=== PATIENT | male | born 1970 | race Caucasian/White ===

== ENCOUNTER 2020-05-12 15:47 | Inpatient (IN) | payer MEDICAID, SELFPAY ==
[2020-05-12 15:49] VITALS: BP 157/96; PULSE 81; RESP 14; TEMP 36.3; O2SAT 98; BMI 27.7
[2020-05-12 16:13] VITALS: BP 151/100; PULSE 83; RESP 16; TEMP 36.5; O2SAT 100
--- NOTE | 2020-05-12 16:15 | ED.DCSUM_ITS ---
History of Present Illness Chief Complaint: Substance Abuse Informant: Patient Narrative: . Patient is a 50-year-old male with a history of GERD who presents to the emerge department for multiple complaints. His main concern was to detox from alcohol and fentanyl. He uses daily since this past July. He states he was 3 years sober until that point. He has gone through detox before in the past. He states that he drinks around 6-7 tall boys of beer per day. He uses about 1 g of fentanyl per day. He smokes it. The last time used was yesterday. He states he now just feels overall crummy. His second concern was an abscess to the right butt cheek. Was treated with antibiotics for an abscess that was in the left groin. He is no longer on the antibiotics and has not completely resolved. He denies any fevers or chills. Sitting on the area did seem to make it significantly worse with the pain. Otherwise has not tried anything for it. Has been present for the past 3 days. Denies any known history of MRSA. Past Medical History - Allergies and Home Meds Allergies/Adverse Reactions: Allergies No Known Allergies Allergy (Verified 05/12/20 15:47) Past Medical History: - - GERD Smoking Status: Current every day smoker Alcohol: Heavy Drugs: - - Fentanyl - Family History Maternal Family History: Reports: - - Denies known maternal medical history including cardiac history. Paternal Family History: Reports: - - Denies known paternal medical history including cardiac history. Review of Systems All systems negative except as indicated General: Denies: Chills, Fever, Sweats Eyes: Denies: Visual changes - bilaterally, Diplopia ENT: Denies: Rhinorrhea, Sore throat Cardiovascular: Denies: Chest pain, Palpitations Respiratory: Denies: Dyspnea, Cough, Dyspnea on exertion Gastrointestinal: Denies: Abdominal pain, Nausea, Vomiting, Diarrhea Genitourinary: Denies: Dysuria, Hematuria, Frequency Musculoskeletal: Denies: Back pain, Extremity Pain Skin: Reports: Abscess. Denies: Rash, Wounds Neurological: Denies: Headache, Weakness, Numbness Physical Exam Vital Signs/Narrative: Vital Signs Temp Pulse Resp BP Pulse Ox 05/12/20 15:49 97.3 F L 81 14 157/96 H 98 Inital Vital Signs reviewed: Yes General: Well nourished, Well developed, No Acute Distress Head: Normocephalic, Atraumatic Eyes: Perrl, EOMI ENT: Moist mucous membranes, No rhinorrhea Neck: Supple, Nontender Cardiovascular: Regular rate, Regular rhythm, No murmurs Respiratory: No distress, CTA bilaterally, Chest nontender Abdomen: Soft, Nontender, Nondistended, Normal bowel sounds Back: Nontender, Normal Inspection Extremities: Nontender, No edema Skin: Normal color, No rash, - - Abscess to right lower butt cheek. No rectal involvement. Large area of induration, erythema, tenderness and warmth. There is an area of opening and there is some bloody/purulent fluid present. Neurological: Alert, Oriented x3, Cranial nerves II-XII grossly intact, Normal Strength, Normal Sensation Psychological: Normal affect, Normal Mood Diagnostic/Tx/Re-eval - Medical Decision Making Patient presents to the ED to detox from alcohol and fentanyl. Upon arrival to the emergency department vital signs within normal limits. Does not appear in any acute distress. He also complaining of an abscess to right butt cheek. Bedside ultrasound of the inflamed area did not show any large fluid collection. This is all indurated tissue. No indication for I&D. Will place him on Bactrim and Keflex. Patient's alcohol level is negative. He did test positive for cocaine and opioids. He otherwise has been stable throughout ED stay. Will bring him into the hospital for further evaluation and management. He understands and is agreeable with this plan. ED Disposition - Plan for ED Patient: Disposition: Acute Care [facility] Diagnosis: Alcohol use disorder, Opioid abuse, Abscess of buttock, right, Polysubstance abuse
[2020-05-12 16:44] LABS: Absolute Lymphocyte Count 2.04 X10^3/uL (0.83-4.51); Absolute Neutrophil Count 8.2 X10^3/uL (2.0-7.7); Basophil# 0.07 X10^3/uL; Basophil% 0.6 % (0-1); Eosinophil# 0.14 X10^3/uL; Eosinophils% 1.2 % (0-5); Hematocrit 43.9 % (40-54); Hemoglobin 14.6 g/dL (13.0-16.5); Lymphocyte # 2.04 X10^3/ul (4.0); Lymphocyte % 17.5 % (19-41); Mean Corp Hgb Conc 33.3 g/dL (32-36); Mean Corpuscular Hgb 29.4 pg (27.0-32.0); Mean Corpuscular Volume 88.5 fL (80-94); Mean Platelet Vol. 9.4 fl (6.2-12.0); Monocyte# 1.19 X10^3/uL; Monocyte% 10.2 % (0-10); NRBC Flagged by Analyzer 0 % (0-5); Neutrophil # 8.16 X10^3/uL (2.7-7.7); Neutrophil % 70.2 % (47-70); Platelet Count 216 K/mm3 (150-450); RBC Distribution Width CV 14.8 % (11.6-14.6); RBC Distribution Width SD 48.8 fl (35.1-43.9); Red Blood Count 4.96 M/mm3 (4.6-6.2); White Blood Count 11.6 K/mm3 (4.4-11.0)
[2020-05-12 17:10] LABS: ALB/GLOB Ratio 0.8 RATIO (0.9-2.4); AST(SGOT) 44 U/L (15-37); Alanine Aminotransfer ALT/SGPT 51 U/L (16-61); Albumin, Serum 3.1 g/dL (3.2-5.0); Alkaline Phosphatase 80 U/L (45-117); Anion Gap 3 (5-15); BUN 8 mg/dL (7-18); BUN/Creat Ratio 8.8 RATIO (10-20); Calcium,Total 8.5 mg/dL (8.5-10.1); Chloride 104 mmol/L (98-107); Creatinine, Serum 0.91 mg/dL (0.70-1.30); EST Glomerular Filtration Rate 95 mL/min (>60); Est Glom Filt Rate - Afr Amer 114 mL/min (>60); Estimated Creatinine Clearance 105.73 ml/min; Globulin 3.8 g/dL (2.2-4.2); Glucose 98 mg/dL (74-106); Potassium 3.6 mmol/L (3.5-5.1); Protein, Total 6.9 g/dL (6.4-8.2); Sodium Level 138 mmol/L (136-145)
[2020-05-12] MEDS: Cephalexin 250 MG Capsule 500 MG PO (17:10)
[2020-05-12] MEDS: Smz/Tmp Ds Tablet 1 TABLET PO (17:10)
[2020-05-12 17:22] LABS: Amphetamine Urine VISTA NEGATIVE (<1000 ng/mL); Barbiturate Urine VISTA NEGATIVE (< 200 ng/mL); Benzodiazepine Urine VISTA NEGATIVE (< 200 ng/mL); Cocaine Urine VISTA POSITIVE (< 300 ng/mL); Ecstacy Urine VISTA NEGATIVE (< 500 ng/mL); Methadone Urine VISTA NEGATIVE (< 300 ng/mL); PCP Urine VISTA NEGATIVE (< 25 ng/mL); THC Urine VISTA NEGATIVE (< 50 ng/mL); Vista UDS pH Range 6
[2020-05-12 17:54] VITALS: BMI 27.7
[2020-05-12 18:40] VITALS: BP 145/92; PULSE 79; RESP 16; TEMP 36.6; O2SAT 98; O2SAT 99
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
[2020-05-12 18:54] LABS: Alcohol, Blood (Medical)-Serum < 3.0 mg/dL
[2020-05-12 19:17] VITALS: BMI 27.1
[2020-05-12 19:18] VITALS: BP 138/83; PULSE 78; RESP 16; TEMP 37; O2SAT 98
[2020-05-12] MEDS: Phenobarbital 32.4 MG Tablet 97.2 MG PO (20:57)
[2020-05-12] MEDS: LORazepam 1 MG Tablet 2 MG PO (21:00)
[2020-05-12] MEDS: Doxycycline 100 MG CAPSULE PO (21:01)
[2020-05-12 21:05] VITALS: BP 133/73; PULSE 84; RESP 18; TEMP 37.2; O2SAT 97
--- NOTE | 2020-05-12 22:10 | NURSING ---
Patient refused to take first scheduled dose of Subutex due to fear of precipitated withdrawal. Stated wants to wait until 05/12 0430 dose to start.
[2020-05-13] MEDS: Phenobarbital 32.4 MG Tablet 97.2 MG PO ×5 (00:12→16:48)
[2020-05-13] MEDS: Buprenorphine HCl 2 MG TAB.SUBL 4 MG SL (04:26)
[2020-05-13 04:27] VITALS: BP 143/88; PULSE 79; RESP 18; TEMP 37.4; O2SAT 97
[2020-05-13] MEDS: cloNIDine HCl 0.1 MG Tablet PO ×2 (05:46→13:49)
--- NOTE | 2020-05-13 07:15 | PN_ITS ---
Patient Problems: Active and Suspected Problems Abscess of buttock, right (Acute) Polysubstance abuse (Acute) Reason for Visit: Acute opioid withdrawal Right gluteal abscess Subjective: Patient is a 50-year-old gentleman with history of polysubstance abuse including alcohol and opioid admitted after patient came in requesting for detoxification. He also did complain of right gluteal abscess which has been treated as outpatient without much improvement Objective: GENERAL: Patient not cooperative HEENT: Atraumatic; EYES; Anicteric, Normal Conjunctiva NECK; supple, normal thyroid, RESPIRATORY: Diminished to auscultation CARDIOVASCULAR: Regular S1 S2, GI: soft, normoactive bowel sounds, : No Renal angle tenderness; EXTREMITIES: No edema, no clubbing, MUSCULOSKELETAL: Area of induration and erythema and warmth measuring about 7 cm in the right gluteal fold NEURO: Awake; no lateralizing signs. SKIN: Described above PSYCH; Flat affect Vitals/I&O's: Vital Signs Temp Pulse Resp BP Pulse Ox 99.4 F H 79 18 143/88 H 97 05/13/20 04:27 05/13/20 04:27 05/13/20 04:27 05/13/20 04:27 05/13/20 04:27 Oxygen Delivery Method Room Air Weight: 88.451 kg Body Mass Index (BMI) 27.1 Intake and Output for Last 24 Hours 05/11/20 05/12/20 05/13/20 23:59 23:59 23:59 Intake Total 240 / 240 500 / 500 Output Total 700 / 700 900 / 900 Balance -460 / -460 -400 / -400 Laboratory Results 05/12/20 16:30: WBC 11.6 H, RBC 4.96, Hgb 14.6, Hct 43.9, MCV 88.5, MCH 29.4, MCHC 33.3, RDW Std Deviation 48.8 H, RDW Coeff of Mayte 14.8 H, Plt Count 216, MPV 9.4, Immature Gran % (Auto) 0.300, Neut % (Auto) 70.2 H, Lymph % (Auto) 17.5 L, [place] % (Auto) 10.2 H, Eos % (Auto) 1.2, Baso % (Auto) 0.6, Absolute Neuts (auto) 8.2 H, Absolute Lymphs (auto) 2.04, Nucleated RBC % 0 05/12/20 16:30: Sodium 138, Potassium 3.6, Chloride 104, Carbon Dioxide 31.0, Anion Gap 3 L, BUN 8, Creatinine 0.91, Estim Creat Clear Calc 105.73, Est GFR (MDRD) Af Amer 114, Est GFR (MDRD) Non-Af 95, BUN/Creatinine Ratio 8.8 L, Glucose 98, Calcium 8.5, Total Bilirubin 1.30 H, AST 44 H, ALT 51, Alkaline Phosphatase 80, Total Protein 6.9, Albumin 3.1 L, Globulin 3.8, Albumin/Globulin Ratio 0.8 L 05/12/20 16:30: Ethyl Alcohol < 3.0 05/12/20 16:40: Urine Opiates Screen POSITIVE H, Urine Methadone Screen NEGATIVE, Ur Barbiturates Screen NEGATIVE, Ur Phencyclidine Scrn NEGATIVE, Ur Amphetamines Screen NEGATIVE, U Methamphetamin-MDMA NEGATIVE, U Benzodiazepines Scrn NEGATIVE, Urine Cocaine Screen POSITIVE H, U Cannabinoids Screen NEGATIVE, Ur Drug Screen Comment Current Medications Acetaminophen (Tylenol) 500 mg PO Q4H PRN PRN PRN Reason: Temp > 100.4 F Buprenorphine HCl (Buprenorphine Hcl) 4 mg SL Q8H [facility]; Taper Stop: 05/15/20 20:29 Last Admin: 05/13/20 04:26 Dose: 4 mg Documented by: Clonidine (Catapres) 0.1 mg PO Q8H PRN PRN PRN Reason: RESTLESSNESS Last Admin: 05/13/20 05:46 Dose: 0.1 mg Documented by: Doxycycline Monohydrate (Doxycycline) 100 mg PO BID [facility] Last Admin: 05/12/20 21:01 Dose: 100 mg Documented by: Folic Acid (Folic Acid) 1 mg PO DAILY@0800 [facility] Ibuprofen (Motrin) 600 mg PO Q8H PRN PRN PRN Reason: Pain Score 1-10/10 Lorazepam (Ativan) 2 mg PO Q2H PRN PRN; Protocol PRN Reason: CIWA score > 8 but <15 Last Admin: 05/12/20 21:00 Dose: 2 mg Documented by: Lorazepam (Ativan) 2 mg PO UD PRN; Protocol PRN Reason: CIWA score >/=15. Lorazepam (Ativan) 2 mg IV Q2H PRN PRN; Protocol PRN Reason: CIWA score > 8 but <15 Lorazepam (Ativan) 2 mg IV UD PRN; Protocol PRN Reason: CIWA score >/=15. Nicotine (Nicoderm Cq (Pbkc)) 14 mg TRANSDERM. DAILY [facility] Nutritional Formula (Lactose Free) (Ensure Enlive) 120 ml PO 4X/DAY [facility] Ondansetron HCl (Zofran) 8 mg PO Q8H PRN PRN PRN Reason: NAUSEA Pantoprazole Sodium (Protonix) 40 mg PO DAILY [facility] Phenobarbital (Phenobarbital) 97.2 mg PO Q4H [facility]; Taper Stop: 05/17/20 04:29 Last Admin: 05/13/20 04:27 Dose: 97.2 mg Documented by: Sodium Chloride () 10 - 40 ml IV UD PRN PRN Reason: SALINE FLUSH Thiamine HCl (Vitamin B1) 100 mg PO DAILYCM [facility] STROKE Vital Signs/Narrative: Vital Signs Temp Pulse Resp BP Pulse Ox 05/13/20 04:27 99.4 F H 79 18 143/88 H 97 Medical Necessity - Tobacco Use Smoking Status: Current every day smoker Tobacco Use: Cigarettes Assessment/Plan All Active Problems Abscess of buttock, right (Acute) Polysubstance abuse (Acute) Patient is a 50-year-old gentleman with history of polysubstance abuse including alcohol and opioid admitted after patient came in requesting for detoxification. He also did complain of right gluteal abscess which has been treated as outpatient without much improvement 1. Acute opioid withdrawal Admitted to regular nursing floor being managed with medical stabilization using Buprenorphine 2. Polysubstance abuse Clean opioid and alcohol counseled on cessation 3. Tobacco dependence - Counseled on cessation, offered nicotine patch for tobacco cravings 4. Right gluteal abscess ?Patient was placed on oral doxycycline however given the extent of induration consult was placed to general surgery for consideration for I&D 5. DVT prophylaxis ?Low risk Inpatient E&M: [id number] [facility] L[facility]
[2020-05-13] MEDS: Folic Acid 1 MG Tablet PO (08:07)
[2020-05-13] MEDS: Pantoprazole Sodium 40 MG Tablet PO (08:07)
[2020-05-13] MEDS: Thiamine Hydrochloride 100 MG Tablet PO (08:07)
[2020-05-13] MEDS: Doxycycline 100 MG CAPSULE PO (08:13)
[2020-05-13] MEDS: LORazepam 1 MG Tablet 2 MG PO ×3 (08:14→16:48)
--- NOTE | 2020-05-13 10:15 | ADDICTION ---
This advertising copy writer attempted to meet with patient in his room to conduct ASAM, MSE, and AUDIT assessments. Patient declined meeting with this advertising copy writer and requested to be seen tomorrow. This advertising copy writer will update 24 hour Navigator staff that he will need to be seen.
[2020-05-13 10:27] VITALS: BP 140/88; PULSE 80; RESP 18; TEMP 36.6; O2SAT 97
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
--- NOTE | 2020-05-14 07:32 | PCM.DC.SUM ---
Discharge Date and Diagnosis Date of Admission: 05/12/20 Date of Discharge: 05/13/20 - Primary Discharge Diagnosis Acute Problems: Acute opioid withdrawal Right gluteal abscess - Secondary Discharge Diagnosis Chronic Problems: Chronic Problems Alcohol use disorder (Chronic) Opioid abuse (Chronic) Hospital Course and Treatment Summary of Care Provided: Patient is a 50-year-old gentleman with history of polysubstance abuse including alcohol and opioid admitted after patient came in requesting for detoxification. He also did complain of right gluteal abscess which has been treated as outpatient without much improvement 1. Acute opioid withdrawal Admitted to regular nursing floor being managed with medical stabilization using Buprenorphine -Patient signed out AGAINST MEDICAL ADVICE 2. Polysubstance abuse Clean opioid and alcohol counseled on cessation 3. Tobacco dependence - Counseled on cessation, offered nicotine patch for tobacco cravings 4. Right gluteal abscess ?Patient was placed on oral doxycycline however given the extent of induration consult was placed to general surgery for consideration for I&D -Consult was placed to Dr. Simon with general surgery plan was for patient to have undergone I&D on 05/14/2020 5. DVT prophylaxis ?Low risk - Physical Exam Vitals/I&O's: Vital Signs Temp Pulse Resp BP Pulse Ox 97.9 F 80 18 140/88 H 97 05/13/20 10:27 05/13/20 10:27 05/13/20 10:27 05/13/20 10:27 05/13/20 10:27 Oxygen Delivery Method Room Air Weight: 88.451 kg Body Mass Index (BMI) 27.1 Intake and Output for Last 24 Hours 05/12/20 05/13/20 05/14/20 23:59 23:59 23:59 Intake Total 240 / 240 500 / 500 Output Total 700 / 700 900 / 900 Balance -460 / -460 -400 / -400 Home Medications: Medications to take at Discharge Ergocalciferol [Vitamin D] 50,000 unit PO WE 05/12/20 Pantoprazole Sodium [Protonix] 40 mg PO DAILY 05/12/20 Primary Care Physician: Mary Lou Shepard,Out of [NON-STAFF] - Disposition: Against Medical Advice Minutes spent on discharge:: 35 Patient Condition:: Stable Medical Necessity - Tobacco Use Smoking Status: Current every day smoker Tobacco Use: Cigarettes Meaningful Use Info Meaningful Use Diagnoses (Choose all that apply): None applicable Inpatient E&M: 94771 [facility]
== END 2020-05-13 18:39 | disposition left against medical advice (07) | DRG 770 ==
LOC: ED 16:51 → MS3 19:06
PROVIDERS: Surgery; Admitting Provider Internal Medicine; Emergency Provider Emergency Medicine; Visit Provider Internal Medicine
DX: F11.23 Opioid dependence with withdrawal (principal); F10.139 Alcohol abuse with withdrawal, unspecified; Y90.0 Blood alcohol level of less than 20 mg/100 ml; L02.31 Cutaneous abscess of buttock; L03.317 Cellulitis of buttock; F14.10 Cocaine abuse, uncomplicated; F17.210 Nicotine dependence, cigarettes, uncomplicated; Z53.29 Procedure and treatment not carried out because of patient's decision for other reasons
CPT/HCPCS: 80053; 80307; 80320; 85025; 97802; 99284; A4216; G0480

== ENCOUNTER 2020-06-18 17:03 | Inpatient (IN) | payer MEDICAID, SELFPAY ==
[2020-06-18 17:06] VITALS: BP 158/99; PULSE 91; RESP 18; TEMP 36.6; O2SAT 99; BMI 27.8
--- NOTE | 2020-06-18 17:32 | ED.DCSUM_ITS ---
- ER Visit Summary Date of Service: 06/18/20 Chief Complaint: Fentanyl withdrawal History of Present Illness: The patient is a 50 M presenting with fentanyl withdrawal requesting detox. He states he drinks approximately 6 beers per day and uses approximately 1 g of fentanyl per day. He smokes fentanyl. He also uses cocaine. He states his last detox was over 1 month ago. He left AGAINST MEDICAL ADVICE at that time. He states he does not intend to leave AGAINST MEDICAL ADVICE this time. His last use of fentanyl and alcohol was yesterday. He complains of abdominal cramping and nausea. Complains of myalgias and chills. Denies fever or recent exposure to Covid. Physical Examination: Vitals are stable. Patient is afebrile. Alert no acute distress. HEENT exam is unremarkable. Neck is supple. Lungs are clear and equal bilaterally. Heart is regular rate and rhythm. Abdomen is soft nontender nondistended. Extremities are unremarkable. Skin is warm and dry. No focal neurologic deficit. Remainder of exam is unremarkable. Emergency Department Course and Treatment: Chemistries showed potassium 3.4. Alcohol negative. Tox positive for methamphetamine and cocaine. He was given Zofran p.o. Discussed with hospitalist for admission. Disposition: Admission Impression: Fentanyl withdrawal This note was generated with [employer] dictation software. It may contain incorrect words, spelling, and punctuation that were not noted in review of the chart prior to signing ED Disposition - Plan for ED Patient: Referrals: SHELDON WESTBROOK [Other]
[2020-06-18] MEDS: Ondansetron 8 MG Tablet PO (17:33)
[2020-06-18 18:18] LABS: Amphetamine Urine VISTA NEGATIVE (<1000 ng/mL); Barbiturate Urine VISTA NEGATIVE (< 200 ng/mL); Benzodiazepine Urine VISTA NEGATIVE (< 200 ng/mL); Cocaine Urine VISTA POSITIVE (< 300 ng/mL); Ecstacy Urine VISTA POSITIVE (< 500 ng/mL); Methadone Urine VISTA NEGATIVE (< 300 ng/mL); PCP Urine VISTA NEGATIVE (< 25 ng/mL); THC Urine VISTA NEGATIVE (< 50 ng/mL); Vista UDS pH Range 6
[2020-06-18 18:20] LABS: Alcohol, Blood (Medical)-Serum < 3.0 mg/dL
[2020-06-18 18:25] LABS: AST(SGOT) 13 U/L (15-37); Alanine Aminotransfer ALT/SGPT 21 U/L (16-61); Albumin, Serum 2.9 g/dL (3.2-5.0); Alkaline Phosphatase 62 U/L (45-117); Anion Gap 4 (5-15); BUN 7 mg/dL (7-18); BUN/Creat Ratio 6.5 RATIO (10-20); Calcium,Total 8.2 mg/dL (8.5-10.1); Chloride 108 mmol/L (98-107); Creatinine, Serum 1.08 mg/dL (0.70-1.30); EST Glomerular Filtration Rate 78 mL/min (>60); Est Glom Filt Rate - Afr Amer 94 mL/min (>60); Estimated Creatinine Clearance 89.09 ml/min; Globulin 2.9 g/dL (2.2-4.2); Glucose 97 mg/dL (74-106); Potassium 3.4 mmol/L (3.5-5.1); Protein, Total 5.8 g/dL (6.4-8.2); Sodium Level 141 mmol/L (136-145)
--- NOTE | 2020-06-18 18:44 | CM.ED ---
Social Work Consult: Substance Abuse Informant: Self Referral Met with patient in room. Introduced self and social services role. Patient agreeable to speak with this social services. Patient with history of [facility] admission in the past and familiar with program. Patient reports to be seeking medical management for withdrawal symptoms. Patient reports Fentanyl and Alcohol as substance of choice. Patient reports Fentanyl is the worst to detox from. Patient tearful at times during conversation. Support and active listening provided. Patient verbally agrees to [facility] contract. Telephone call to [facility], no answer. voicemail left Dalia SARKAR, JOSH
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
[2020-06-18 19:13] VITALS: BP 157/98; PULSE 73; RESP 18; TEMP 36.7; O2SAT 98
[2020-06-18 19:47] VITALS: BMI 27.2
[2020-06-18 19:50] VITALS: BMI 27.3
[2020-06-18 19:54] VITALS: BP 157/93; PULSE 75; RESP 16; TEMP 36.7; O2SAT 99
[2020-06-18] MEDS: Folic Acid 1 MG Tablet PO (20:27)
[2020-06-18] MEDS: Thiamine Hydrochloride 100 MG Tablet PO (20:28)
[2020-06-18] MEDS: cloNIDine HCl 0.1 MG Tablet PO (22:13)
[2020-06-18] MEDS: Buprenorphine HCl 2 MG TAB.SUBL SL (22:13)
[2020-06-18] MEDS: traZODone 100 MG Tablet PO (22:13)
[2020-06-18] MEDS: Methocarbamol 750 MG Tablet 1500 MG PO (23:54)
[2020-06-18] MEDS: Dicyclomine 10 MG Capsule 20 MG PO (23:54)
[2020-06-18] MEDS: Gabapentin 300 MG Capsule PO (23:54)
[2020-06-19] MEDS: Ibuprofen 600 MG Tablet PO ×2 (00:42→12:50)
[2020-06-19 03:05] VITALS: BP 159/90; PULSE 83; RESP 20; TEMP 37.2; O2SAT 96
[2020-06-19 08:00] VITALS: PULSE 79; O2SAT 99
[2020-06-19 08:20] LABS: Absolute Lymphocyte Count 1.55 X10^3/uL (0.83-4.51); Absolute Neutrophil Count 8.2 X10^3/uL (2.0-7.7); Basophil# 0.05 X10^3/uL; Basophil% 0.5 % (0-1); Eosinophil# 0.07 X10^3/uL; Eosinophils% 0.7 % (0-5); Lymphocyte # 1.55 X10^3/ul (4.0); Lymphocyte % 14.6 % (19-41); Mean Corp Hgb Conc 34.8 g/dL (32-36); Mean Corpuscular Hgb 30.5 pg (27.0-32.0); Mean Corpuscular Volume 87.8 fL (80-94); Mean Platelet Vol. 8.9 fl (6.2-12.0); Monocyte# 0.73 X10^3/uL; Monocyte% 6.9 % (0-10); NRBC Flagged by Analyzer 0 % (0-5); Neutrophil # 8.16 X10^3/uL (2.7-7.7); Platelet Count 230 K/mm3 (150-450); RBC Distribution Width CV 12.9 % (11.6-14.6); RBC Distribution Width SD 41.2 fl (35.1-43.9); Red Blood Count 5.24 M/mm3 (4.6-6.2); White Blood Count 10.6 K/mm3 (4.4-11.0)
[2020-06-19 08:40] LABS: AST(SGOT) 12 U/L (15-37); Alanine Aminotransfer ALT/SGPT 23 U/L (16-61); Alkaline Phosphatase 45 U/L (45-117); Anion Gap 7 (5-15); BUN 5 mg/dL (7-18); BUN/Creat Ratio 5.7 RATIO (10-20); Calcium,Total 8.2 mg/dL (8.5-10.1); Chloride 105 mmol/L (98-107); Creatinine, Serum 0.88 mg/dL (0.70-1.30); EST Glomerular Filtration Rate 98 mL/min (>60); Est Glom Filt Rate - Afr Amer 119 mL/min (>60); Estimated Creatinine Clearance 109.34 ml/min; Glucose 121 mg/dL (74-106); Potassium 3.5 mmol/L (3.5-5.1); Sodium Level 138 mmol/L (136-145)
[2020-06-19 09:09] VITALS: BP 138/87; PULSE 79; RESP 20; TEMP 36.6; O2SAT 99
[2020-06-19] MEDS: Thiamine Hydrochloride 100 MG Tablet PO (09:15)
[2020-06-19] MEDS: Folic Acid 1 MG Tablet PO (09:15)
[2020-06-19] MEDS: Pantoprazole Sodium 40 MG Tablet PO (09:15)
--- NOTE | 2020-06-19 10:32 | PN_ITS ---
<Bret Sullivan - Last Filed: 06/19/20 10:32> Patient Problems: Active and Suspected Problems Opiate withdrawal (Acute) Reason for Visit: opiate withdrawal Subjective: Pt c/o headache and back pain. He is very restless and agitated. He is insistent that he use his cell phone however he is unable to do so due to his agreement for the detox program and he is very upset about this. He has also refused subutex. Vitals/I&O's: Vital Signs Temp Pulse Resp BP Pulse Ox 98 F 79 20 H 138/87 H 99 06/19/20 09:09 06/19/20 09:09 06/19/20 09:09 06/19/20 09:09 06/19/20 09:09 Oxygen Delivery Method Room Air Weight: 195 lb 8.8 oz Body Mass Index (BMI) 27.2 Intake and Output for Last 24 Hours 06/17/20 06/18/20 06/19/20 23:59 23:59 23:59 Intake Total 400 / 400 800 / 800 Balance 400 / 400 800 / 800 General: Alert, Oriented x3, Cooperative HEENT: Atraumatic, PERRLA, EOMI, Normocephalic Neck: Supple, No JVD, Negative Carotid Bruits Lungs: Clear to auscultation, Normal air movement Cardiovascular: Regular rate, No murmurs Abdomen: Bowel Sounds Present, Soft, Non Tender Extremities: No edema, Capillary Refill Less than 3 Seconds Skin: No rashes, No breakdown Musculoskeletal: No Tenderness to Palpation of Joints or Extremities Neurological: Cranial nerves II-XII grossly intact Psych/Mental Status: Agitated, Alert and oriented to time, place, person, mood and affect Laboratory Results 06/18/20 17:18: Urine Opiates Screen NEGATIVE, Urine Methadone Screen NEGATIVE, Ur Barbiturates Screen NEGATIVE, Ur Phencyclidine Scrn NEGATIVE, Ur Amphetamines Screen NEGATIVE, U Methamphetamin-MDMA POSITIVE H, U Benzodiazepines Scrn NEGATIVE, Urine Cocaine Screen POSITIVE H, U Cannabinoids Screen NEGATIVE, Ur D rug Screen Comment 06/18/20 17:45: Sodium 141, Potassium 3.4 L, Chloride 108 H, Carbon Dioxide 29.0, Anion Gap 4 L, BUN 7, Creatinine 1.08, Estim Creat Clear Calc 89.09, Est GFR (MDRD) Af Amer 94, Est GFR (MDRD) Non-Af 78, BUN/Creatinine Ratio 6.5 L, Glucose 97, Calcium 8.2 L, Total Bilirubin 0.50, AST 13 L, ALT 21, Alkaline Phosphatase 62, Total Protein 5.8 L, Albumin 2.9 L, Globulin 2.9, Albumin/Globulin Ratio 1.0 06/18/20 17:45: Ethyl Alcohol < 3.0 06/19/20 08:10: WBC 10.6, RBC 5.24, Hgb 16.0, Hct 46.0, MCV 87.8, MCH 30.5, MCHC 34.8, RDW Std Deviation 41.2, RDW Coeff of Mayte 12.9, Plt Count 230, MPV 8.9, Immature Gran % (Auto) 0.300, Neut % (Auto) 77.0 H, Lymph % (Auto) 14.6 L, [place] % (Auto) 6.9, Eos % (Auto) 0.7, Baso % (Auto) 0.5, Absolute Neuts (auto) 8.2 H, Absolute Lymphs (auto) 1.55, Nucleated RBC % 0 06/19/20 08:10: Sodium 138, Potassium 3.5, Chloride 105, Carbon Dioxide 26.0, Anion Gap 7, BUN 5 L, Creatinine 0.88, Estim Creat Clear Calc 109.34, Est GFR (MDRD) Af Amer 119, Est GFR (MDRD) Non-Af 98, BUN/Creatinine Ratio 5.7 L, Glucose 121 H, Calcium 8.2 L, Total Bilirubin 1.00, AST 12 L, ALT 23, Alkaline Phosphatase 45, Total Protein 6.0 L, Albumin 3.0 L, Globulin 3.0, Albumin/Globulin Ratio 1.0 Current Medications Acetaminophen (Acetaminophen 500 Mg Tablet) 500 mg PO Q4H PRN PRN PRN Reason: Temp > 100.4 F Buprenorphine HCl (Buprenorphine Hcl 2 Mg Tab.Subl) 4 mg SL Q8H CLAY; Taper Stop: 06/21/20 19:59 Last Admin: 06/19/20 04:41 Dose: Not Given Documented by: Clonidine (Clonidine Hcl 0.1 Mg Tablet) 0.1 mg PO Q8H PRN PRN PRN Reason: RESTLESSNESS Last Admin: 06/18/20 22:13 Dose: 0.1 mg Documented by: Dicyclomine HCl (Dicyclomine 10 Mg Capsule) 20 mg PO Q6H PRN PRN PRN Reason: Abdominal Discomfort Last Admin: 06/18/20 23:54 Dose: 20 mg Documented by: Folic Acid (Folic Acid 1 Mg Tablet) 1 mg PO DAILY@0800 [facility] Last Admin: 06/19/20 09:15 Dose: 1 mg Documented by: Gabapentin (Gabapentin 300 Mg Capsule) 300 mg PO Q8H PRN PRN PRN Reason: moderate to severe anxiety Last Admin: 06/18/20 23:54 Dose: 300 mg Documented by: Hydroxyzine Pamoate (Hydroxyzine Andreia 25 Mg Capsule) 50 mg PO Q6H PRN PRN PRN Reason: mild anxiety Ibuprofen (Ibuprofen 600 Mg Tablet) 600 mg PO Q8H PRN PRN PRN Reason: Pain Score 1-10 Last Admin: 06/19/20 00:42 Dose: 600 mg Documented by: Loperamide HCl (Loperamide 2 Mg Capsule) 2 mg PO Q4H PRN PRN PRN Reason: LOOSE STOOLS Methocarbamol (Methocarbamol 750 Mg Tablet) 1,500 mg PO Q6H PRN PRN PRN Reason: MUSCLE SPASM Last Admin: 06/18/20 23:54 Dose: 1,500 mg Documented by: Nicotine (Nicotine 21 Mg Patch) 21 mg TRANSDERM. DAILY [facility] Last Admin: 06/19/20 09:15 Dose: Not Given Documented by: Ondansetron HCl (Ondansetron 8 Mg Tablet) 8 mg PO Q8H PRN PRN PRN Reason: NAUSEA Pantoprazole Sodium (Pantoprazole Sodium 40 Mg Tablet) 40 mg PO DAILY [facility] Last Admin: 06/19/20 09:15 Dose: 40 mg Documented by: Thiamine HCl ([facility] Hydrochloride 100 Mg Tablet) [facility] Last Admin: 06/19/20 09:15 Dose: 100 mg Documented by: Trazodone HCl (Trazodone 100 Mg Tablet) 100 mg PO QHS PRN PRN PRN Reason: INSOMNIA Last Admin: 06/18/20 22:13 Dose: 100 mg Documented by: STROKE Vital Signs/Narrative: Vital Signs Temp Pulse Resp BP Pulse Ox 06/19/20 09:09 98 F 79 20 H 138/87 H 99 06/19/20 08:00 79 99 Medical Necessity - Tobacco Use Smoking Status: Current every day smoker Assessment/Plan All Active Problems Opiate withdrawal (Acute) 1. Acute opiate withdrawal - pt very agitated and refused subutex. He is also upset about not being able to use his phone. He left AMA last admission and he is at high risk for elopement again. 2. Alcohol use disorder - unclear if he has alcohol withdrawal - continue thiamine and folate. As he is refusing to go use subutex for opiate withdrawal I do not feel that it would be beneficial to start phenobarb at this time for alcohol withdrawal as he clearly has opiate withdrawal. DVT ppx: early ambulation DC plannin at discharge This patient was seen by Bret Sullivan PA-C under the supervision of Dr. Soto. <[place] - Last Filed: 06/19/20 12:19> Vitals/I&O's: Vital Signs Temp Pulse Resp BP Pulse Ox 98 F 79 20 H 138/87 H 99 06/19/20 09:09 06/19/20 09:09 06/19/20 09:09 06/19/20 09:09 06/19/20 09:09 Oxygen Delivery Method Room Air Weight: 88.7 kg Body Mass Index (BMI) 27.2 Intake and Output for Last 24 Hours 06/17/20 06/18/20 06/19/20 23:59 23:59 23:59 Intake Total 400 / 400 800 / 800 Balance 400 / 400 800 / 800 Laboratory Results 06/18/20 17:18: Urine Opiates Screen NEGATIVE, Urine Methadone Screen NEGATIVE, Ur Barbiturates Screen NEGATIVE, Ur Phencyclidine Scrn NEGATIVE, Ur Amphetamines Screen NEGATIVE, U Methamphetamin-MDMA POSITIVE H, U Benzodiazepines Scrn NEGATIVE, Urine Cocaine Screen POSITIVE H, U Cannabinoids Screen NEGATIVE, Ur Drug Screen Comment 06/18/20 17:45: Sodium 141, Potassium 3.4 L, Chloride 108 H, Carbon Dioxide 29.0, Anion Gap 4 L, BUN 7, Creatinine 1.08, Estim Creat Clear Calc 89.09, Est GFR (MDRD) Af Amer 94, Est GFR (MDRD) Non-Af 78, BUN/Creatinine Ratio 6.5 L, Glucose 97, Calcium 8.2 L, Total Bilirubin 0.50, AST 13 L, ALT 21, Alkaline Phosphatase 62, Total Protein 5.8 L, Albumin 2.9 L, Globulin 2.9, Albumin/Globulin Ratio 1.0 06/18/20 17:45: Ethyl Alcohol < 3.0 06/19/20 08:10: WBC 10.6, RBC 5.24, Hgb 16.0, Hct 46.0, MCV 87.8, MCH 30.5, MCHC 34.8, RDW Std Deviation 41.2, RDW Coeff of Mayte 12.9, Plt Count 230, MPV 8.9, Immature Gran % (Auto) 0.300, Neut % (Auto) 77.0 H, Lymph % (Auto) 14.6 L, [place] % (Auto) 6.9, Eos % (Auto) 0.7, Baso % (Auto) 0.5, Absolute Neuts (auto) 8.2 H, Absolute Lymphs (auto) 1.55, Nucleated RBC % 0 06/19/20 08:10: Sodium 138, Potassium 3.5, Chloride 105, Carbon Dioxide 26.0, Anion Gap 7, BUN 5 L, Creatinine 0.88, Estim Creat Clear Calc 109.34, Est GFR (MDRD) Af Amer 119, Est GFR (MDRD) Non-Af 98, BUN/Creatinine Ratio 5.7 L, Glucose 121 H, Calcium 8.2 L, Total Bilirubin 1.00, AST 12 L, ALT 23, Alkaline Phosphatase 45, Total Protein 6.0 L, Albumin 3.0 L, Globulin 3.0, Albumin/Globulin Ratio 1.0 Current Medications Acetaminophen (Acetaminophen 500 Mg Tablet) 500 mg PO Q4H PRN PRN PRN Reason: Temp > 100.4 F Buprenorphine HCl (Buprenorphine Hcl 2 Mg Tab.Subl) 4 mg SL Q8H CLAY; Taper Stop: 06/21/20 19:59 Last Admin: 06/19/20 04:41 Dose: Not Given Documented by: Clonidine (Clonidine Hcl 0.1 Mg Tablet) 0.1 mg PO Q8H PRN PRN PRN Reason: RESTLESSNESS Last Admin: 06/18/20 22:13 Dose: 0.1 mg Documented by: Dicyclomine HCl (Dicyclomine 10 Mg Capsule) 20 mg PO Q6H PRN PRN PRN Reason: Abdominal Discomfort Last Admin: 06/18/20 23:54 Dose: 20 mg Documented by: Folic Acid (Folic Acid 1 Mg Tablet) 1 mg PO DAILY@0800 [facility] Last Admin: 06/19/20 09:15 Dose: 1 mg Documented by: Gabapentin (Gabapentin 300 Mg Capsule) 300 mg PO Q8H PRN PRN PRN Reason: moderate to severe anxiety Last Admin: 06/18/20 23:54 Dose: 300 mg Documented by: Hydroxyzine Pamoate (Hydroxyzine Andreia 25 Mg Capsule) 50 mg PO Q6H PRN PRN PRN Reason: mild anxiety Ibuprofen (Ibuprofen 600 Mg Tablet) 600 mg PO Q8H PRN PRN PRN Reason: Pain Score 1-10 Last Admin: 06/19/20 00:42 Dose: 600 mg Documented by: Loperamide HCl (Loperamide 2 Mg Capsule) 2 mg PO Q4H PRN PRN PRN Reason: LOOSE STOOLS Methocarbamol (Methocarbamol 750 Mg Tablet) 1,500 mg PO Q6H PRN PRN PRN Reason: MUSCLE SPASM Last Admin: 06/18/20 23:54 Dose: 1,500 mg Documented by: Nicotine (Nicotine 21 Mg Patch) 21 mg TRANSDERM. DAILY [facility] Last Admin: 06/19/20 09:15 Dose: Not Given Documented by: Ondansetron HCl (Ondansetron 8 Mg Tablet) 8 mg PO Q8H PRN PRN PRN Reason: NAUSEA Pantoprazole Sodium (Pantoprazole Sodium 40 Mg Tablet) 40 mg PO DAILY [facility] Last Admin: 06/19/20 09:15 Dose: 40 mg Documented by: Thiamine HCl ([facility]iamine Hydrochloride 100 Mg Tablet) [facility] Last Admin: 06/19/20 09:15 Dose: 100 mg Documented by: Trazodone HCl (Trazodone 100 Mg Tablet) 100 mg PO QHS PRN PRN PRN Reason: INSOMNIA Last Admin: 06/18/20 22:13 Dose: 100 mg Documented by: STROKE Vital Signs/Narrative: Vital Signs Temp Pulse Resp BP Pulse Ox 06/19/20 09:09 98 F 79 20 H 138/87 H 99 Assessment/Plan This patient was seen in conjunction with DEVYN Novoa. I have independently interviewed and examined the patient and reviewed pertinent historical, laboratory, and other data. Please refer to DEVYN Novoa note for his patient's presentation, findings, and recommendations. I have reviewed and his note and concur with his documentation Patient was seen and examined. He denied any complaints. No acute events overnight Rest of review of systems was negative Physical Exam: Gen: Comfortable, not pale, not jaundiced CVS:HS I +II, regular, no murmurs RESP: CTA GI: BS present and normal, soft, nontender, no palpable organs EXT:No edema ASSESSMENT: 1. Acute opiate withdrawal 2. Alcohol use disorder 3. Hypokalemia 4. Polysubstance use disorder Plan: Continue with opiate withdrawal protocol with Subutex Continue to monitor vitals Inpatient E&M: 97532 Subs Hosp L2
[2020-06-19 12:36] VITALS: BP 148/80; PULSE 79; RESP 20; TEMP 36.6; O2SAT 99
[2020-06-19] MEDS: cloNIDine HCl 0.1 MG Tablet PO ×2 (12:50→22:16)
[2020-06-19 17:45] VITALS: BP 150/80; PULSE 74; RESP 20; TEMP 36.7; O2SAT 98
[2020-06-19] MEDS: Gabapentin 300 MG Capsule PO (17:52)
[2020-06-19] MEDS: Methocarbamol 750 MG Tablet 1500 MG PO (17:52)
[2020-06-19 22:15] VITALS: BP 161/99; PULSE 68; RESP 18; TEMP 36.9; O2SAT 99
[2020-06-19] MEDS: hydrOXYzine PAM 25 MG Capsule 50 MG PO (22:16)
[2020-06-19] MEDS: traZODone 100 MG Tablet PO (22:16)
[2020-06-20 04:02] VITALS: BP 153/103; PULSE 57; RESP 16; TEMP 37.1; O2SAT 97
[2020-06-20] MEDS: Thiamine Hydrochloride 100 MG Tablet PO (08:16)
[2020-06-20] MEDS: Folic Acid 1 MG Tablet PO (08:17)
[2020-06-20] MEDS: Gabapentin 300 MG Capsule PO (08:17)
[2020-06-20] MEDS: Pantoprazole Sodium 40 MG Tablet PO (08:17)
[2020-06-20] MEDS: Ondansetron 8 MG Tablet PO (08:17)
[2020-06-20] MEDS: cloNIDine HCl 0.1 MG Tablet PO ×2 (08:17→19:52)
[2020-06-20 08:20] VITALS: BP 159/95; PULSE 67; RESP 18; TEMP 36.9; O2SAT 97
--- NOTE | 2020-06-20 09:56 | ADDICTION ---
This information writer met with patient in his room to complete ASAM, MSE and DUDIT assessments and to plan for discharge. Patient was agitated but cooperative enough to allow this information writer to complete the assessments and part of the discharge plan. Patient plans to discharge to home and will go to [facility] for Vivitrol and counseling. He plans to discharge on 06/21/2020 at 12pm. Transportation has been coordinated.
--- NOTE | 2020-06-20 14:36 | PN_ITS ---
Patient Problems: Active and Suspected Problems Opiate withdrawal (Acute) Reason for Visit: Opiate withdrawal Subjective: Minimal complaints. Patient continues to refuse Subutex. Vitals/I&O's: Vital Signs Temp Pulse Resp BP Pulse Ox 98.4 F 67 18 159/95 H 97 06/20/20 08:20 06/20/20 08:20 06/20/20 08:20 06/20/20 08:20 06/20/20 08:20 Oxygen Delivery Method Room Air Weight: 195 lb 8.8 oz Body Mass Index (BMI) 27.2 Intake and Output for Last 24 Hours 06/18/20 06/19/20 06/20/20 23:59 23:59 23:59 Intake Total 400 / 400 1520 / 1520 1900 / 1900 Balance 400 / 400 1520 / 1520 1900 / 1900 General: Alert, Oriented x3, Cooperative HEENT: Atraumatic, PERRLA, EOMI, Normocephalic Neck: Supple, No JVD, Negative Carotid Bruits Lungs: Clear to auscultation, Normal air movement Cardiovascular: Regular rate, No murmurs Abdomen: Bowel Sounds Present, Soft, Non Tender Extremities: No edema, Capillary Refill Less than 3 Seconds Skin: No rashes, No breakdown Musculoskeletal: No Tenderness to Palpation of Joints or Extremities Neurological: Cranial nerves II-XII grossly intact Psych/Mental Status: Normal Affect, Appropriate, Alert and oriented to time, place, person, mood and affect Current Medications Acetaminophen (Acetaminophen 500 Mg Tablet) 500 mg PO Q4H PRN PRN PRN Reason: Temp > 100.4 F Buprenorphine HCl (Buprenorphine Hcl 2 Mg Tab.Subl) 2 mg SL Q8H CLAY; Taper Stop: 06/21/20 19:59 Last Admin: 06/20/20 13:06 Dose: Not Given Documented by: Clonidine (Clonidine Hcl 0.1 Mg Tablet) 0.1 mg PO Q8H PRN PRN PRN Reason: RESTLESSNESS Last Admin: 06/20/20 08:17 Dose: 0.1 mg Documented by: Hydroxyzine Pamoate (Hydroxyzine Andreia 25 Mg Capsule) 50 mg PO Q6H PRN PRN PRN Reason: mild anxiety Last Admin: 06/19/20 22:16 Dose: 50 mg Documented by: Ibuprofen (Ibuprofen 600 Mg Tablet) 600 mg PO Q8H PRN PRN PRN Reason: Pain Score 1-10 Last Admin: 06/19/20 12:50 Dose: 600 mg Documented by: Nicotine (Nicotine 21 Mg Patch) 21 mg TRANSDERM. DAILY [facility] Last Admin: 06/20/20 08:18 Dose: Not Given Documented by: Ondansetron HCl (Ondansetron 8 Mg Tablet) 8 mg PO Q8H PRN PRN PRN Reason: NAUSEA Last Admin: 06/20/20 08:17 Dose: 8 mg Documented by: Pantoprazole Sodium (Pantoprazole Sodium 40 Mg Tablet) 40 mg PO DAILY [facility] Last Admin: 06/20/20 08:17 Dose: 40 mg Documented by: Trazodone HCl (Trazodone 100 Mg Tablet) 100 mg PO QHS PRN PRN PRN Reason: INSOMNIA Last Admin: 06/19/20 22:16 Dose: 100 mg Documented by: Medical Necessity - Tobacco Use Smoking Status: Current every day smoker Assessment/Plan All Active Problems Opiate withdrawal (Acute) 1. Acute opiate withdrawal -patient refusing Subutex because he believes it will make his withdrawal worse despite my attempts to dissuade him. His symptoms are minimal at this time. His tox brain did not reveal opiates, and was positive for methamphetamine and cocaine 2. Alcohol use disorder - unclear if he has alcohol withdrawal - continue thiamine and folate. Patient was asking for phenobarbital his first night here. This was deferred. Doing well without phenobarbital or Ativan, suspicion for actual alcoholism and withdrawal are low. 3. Nicotine abuse - patch DVT ppx: early ambulation DC plannin at discharge This patient was seen by Bret Sullivan PA-C under the supervision of Dr. [place]
[2020-06-20] MEDS: Ibuprofen 600 MG Tablet PO (15:41)
[2020-06-20 15:43] VITALS: BP 142/81; PULSE 65; RESP 18; TEMP 37; O2SAT 98
[2020-06-20] MEDS: hydrOXYzine PAM 25 MG Capsule 50 MG PO (19:52)
[2020-06-20 21:00] VITALS: BP 144/84; PULSE 97; RESP 18; TEMP 37.2; O2SAT 97
[2020-06-20] MEDS: traZODone 100 MG Tablet PO (22:36)
[2020-06-21] MEDS: hydrOXYzine PAM 25 MG Capsule 50 MG PO ×2 (02:46→09:18)
[2020-06-21] MEDS: Ibuprofen 600 MG Tablet PO (02:46)
[2020-06-21 03:00] VITALS: BP 147/94; PULSE 66; RESP 18; TEMP 37.6; O2SAT 96
[2020-06-21] MEDS: cloNIDine HCl 0.1 MG Tablet PO (05:43)
[2020-06-21] MEDS: Gabapentin 300 MG Capsule PO (06:47)
--- NOTE | 2020-06-21 07:44 | PCM.DC ---
- Discharge Diagnoses Current Active Problems: Current Active and Chronic Problems Alcohol use disorder (Chronic) Opioid abuse (Chronic) Polysubstance abuse (Chronic) Opiate withdrawal (Acute) You will use the following diet at home:: No restrictions Your food should be the consistency of: Regular Your liquids should be the consistency of: Regular/Thin Discharge Activity: Return to Normal Activity Weight Bearing Status: Full weight bearing Allergies/Adverse Reactions: Allergies No Known Allergies Allergy (Verified 06/18/20 19:58) Medications to take at Discharge Pantoprazole Sodium [Protonix] 40 mg PO DAILY 05/12/20 Testosterone Enanthate 225 mg IM 06/18/20 Primary Care Physician: SHELDON WESTBROOK [Other] Test Results: Test results from this visit will be discussed in further detail at your follow-up appointment, if applicable. Please Follow Up With: follow up in [place] as directed
[2020-06-21] MEDS: Buprenorphine HCl 2 MG TAB.SUBL SL (09:18)
[2020-06-21] MEDS: Pantoprazole Sodium 40 MG Tablet PO (09:18)
[2020-06-21 09:20] VITALS: PULSE 60
[2020-06-21 09:22] VITALS: BP 127/85; PULSE 56; RESP 18; TEMP 36.5; O2SAT 98
--- NOTE | 2020-06-21 10:15 | PHA.DC.MR ---
Pharmacy Service has performed discharge medication reconciliation for this patient. The patient's discharge medication list was reviewed for discrepancies and discrepancies were resolved. Home Medications Pantoprazole Sodium [Protonix] 40 mg PO DAILY 05/12/20 Testosterone Enanthate 225 mg IM 06/18/20
[2020-06-21 11:36] VITALS: BP 150/89; PULSE 58; RESP 16; TEMP 37; O2SAT 98
--- NOTE | 2020-06-21 12:09 | DS.PCM_ITS ---
Discharge Date and Diagnosis - Problem List Patient Problems: Active and Suspected Problems Opiate withdrawal (Acute) Date of Admission: 06/18/20 Date of Discharge: 06/21/20 - Primary Discharge Diagnosis Acute Problems: Active Problems Opiate withdrawal (Acute) Polysubstance abuse - meth Nicotine abuse Alcohol use disorder without withdrawal - Secondary Discharge Diagnosis Chronic Problems: Chronic Problems Alcohol use disorder (Chronic) Opioid abuse (Chronic) Polysubstance abuse (Chronic) Hospital Course and Treatment Operations: None Procedures: None Summary of Care Provided: Hospital Course: The patient is a 50 year old M with pmhx of opiate abuse who presented to the ER with request for detox. He had been using fentanyl and alcohol, last use the night prior to presentation. He c/o stomach crams, nausea, RLS, runny nose and watery eyes. He had been through detox approximately 1 month prior but left the program AMA. The patient was admitted for opiate detox. He was not felt to have acute alcohol withdrawal. The patient was placed on subutex which he refused to take throughout his entire stay. He was insistent that it would make his withdrawal from opiates worse. He tolerated the program well. He plans to follow up with a program in [facility] for staying sober which he has an appointment at tomorrow. He will need follow up with a PCP in 1-2 weeks. He was discharged home in stable condition. This patient was seen by Bret Sullivan PA-C under the supervision of Dr. Mesa. [] Patient Problems: Active and Suspected Problems Opiate withdrawal (Acute) - Physical Exam Vitals/I&O's: Vital Signs Temp Pulse Resp BP Pulse Ox 98.6 F 58 L 16 150/89 H 98 06/21/20 11:36 06/21/20 11:36 06/21/20 11:36 06/21/20 11:36 06/21/20 11:36 Oxygen Delivery Method Room Air Weight: 195 lb 8.8 oz Body Mass Index (BMI) 27.2 Intake and Output for Last 24 Hours 06/19/20 06/20/20 06/21/20 23:59 23:59 23:59 Intake Total 1520 / 1520 2700 / 3150 450 / 450 Balance 1520 / 1520 2700 / 3150 450 / 450 General: Alert, Oriented x3, Cooperative HEENT: Atraumatic, PERRLA, EOMI, Normocephalic Neck: Supple, No JVD, Negative Carotid Bruits Lungs: Clear to auscultation, Normal air movement Cardiovascular: Regular rate, No murmurs Abdomen: Bowel Sounds Present, Soft, Non Tender Extremities: No edema, Capillary Refill Less than 3 Seconds Skin: No rashes, No breakdown Musculoskeletal: No Tenderness to Palpation of Joints or Extremities Neurological: Cranial nerves II-XII grossly intact Psych/Mental Status: Anxious, Alert and oriented to time, place, person, mood and affect Current Medications Acetaminophen (Acetaminophen 500 Mg Tablet) 500 mg PO Q4H PRN PRN PRN Reason: Temp > 100.4 F Buprenorphine HCl (Buprenorphine Hcl 2 Mg Tab.Subl) 2 mg SL Q12H [facility]; Taper Stop: 06/21/20 19:59 Last Admin: 06/21/20 09:18 Dose: 2 mg Documented by: Clonidine (Clonidine Hcl 0.1 Mg Tablet) 0.1 mg PO Q8H PRN PRN PRN Reason: RESTLESSNESS Last Admin: 06/21/20 05:43 Dose: 0.1 mg Documented by: Hydroxyzine Pamoate (Hydroxyzine Andreia 25 Mg Capsule) 50 mg PO Q6H PRN PRN PRN Reason: mild anxiety Last Admin: 06/21/20 09:18 Dose: 50 mg Documented by: Ibuprofen (Ibuprofen 600 Mg Tablet) 600 mg PO Q8H PRN PRN PRN Reason: Pain Score 1-10 Last Admin: 06/21/20 02:46 Dose: 600 mg Documented by: Nicotine (Nicotine 21 Mg Patch) 21 mg TRANSDERM. DAILY [facility] Last Admin: 06/21/20 09:18 Dose: Not Given Documented by: Ondansetron HCl (Ondansetron 8 Mg Tablet) 8 mg PO Q8H PRN PRN PRN Reason: NAUSEA Last Admin: 06/20/20 08:17 Dose: 8 mg Documented by: Pantoprazole Sodium (Pantoprazole Sodium 40 Mg Tablet) 40 mg PO DAILY [facility] Last Admin: 06/21/20 09:18 Dose: 40 mg Documented by: Trazodone HCl (Trazodone 100 Mg Tablet) 100 mg PO QHS PRN PRN PRN Reason: INSOMNIA Last Admin: 06/20/20 22:36 Dose: 100 mg Documented by: Discharge Diet: Low fat/ Low Cholesterol, 2000 mg Sodium Diet Discharge Activity: Return to Normal Activity Weight Bearing Status: Full weight bearing Home Medications: Medications to take at Discharge Pantoprazole Sodium [Protonix] 40 mg PO DAILY 05/12/20 Testosterone Enanthate 225 mg IM 06/18/20 Primary Care Physician: SHELDON WESTBROOK [Other] Please follow up with your Primary Care Physician in: 1-2 weeks Please Follow Up With: follow up in [place] as directed Disposition: Home Minutes spent on discharge:: 35 Patient Condition:: Stable Medical Necessity - Tobacco Use Smoking Status: Current every day smoker Meaningful Use Info Meaningful Use Diagnoses (Choose all that apply): None applicable
== END 2020-06-21 12:10 | disposition home or self-care (01) | DRG 773 ==
LOC: ED 17:28 → MS3 19:07
PROVIDERS: Internal Medicine; Emergency Provider Emergency Medicine; Visit Provider Internal Medicine
DX: F11.23 Opioid dependence with withdrawal (principal); F10.239 Alcohol dependence with withdrawal, unspecified; F17.200 Nicotine dependence, unspecified, uncomplicated; E87.6 Hypokalemia; F14.90 Cocaine use, unspecified, uncomplicated; F19.10 Other psychoactive substance abuse, uncomplicated; Y90.9 Presence of alcohol in blood, level not specified
CPT/HCPCS: 36415; 80053; 80307; 80320; 85025; 99283; 99406; G0480

== ENCOUNTER 2020-07-25 16:16 | Inpatient (IN) | payer MEDICAID, SELFPAY ==
[2020-07-25 16:17] VITALS: BP 125/99; PULSE 71; RESP 16; TEMP 36; O2SAT 99; BMI 27.1
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
--- NOTE | 2020-07-25 16:57 | CM.ED ---
SOCIAL WORK Informant: Dr. Galindo Reason for Consult: Detox from alcohol and fentanyl Met with patient in room. Introduced role and reason for referral. Per patient, was admitted to [facility] in the past x2. Patient reports first admission did not finish program and did complete program the second time. Patient states shortly after completing program he relapsed. Patient states plan after detox is to complete intensive outpatient treatment and get back on Vivitrol. Encouragement and support provided. Collaboration with Dr. Galindo. Anticipate admission to [facility]. This worker to contact [facility] Treatment Navigator upon admission. Ulises Alexander, CAM MAKER, LINING MACHINE TENDER
[2020-07-25 17:07] LABS: Absolute Lymphocyte Count 2.28 X10^3/uL (0.83-4.51); Absolute Neutrophil Count 6.5 X10^3/uL (2.0-7.7); Basophil# 0.06 X10^3/uL; Basophil% 0.6 % (0-1); Eosinophil# 0.08 X10^3/uL; Eosinophils% 0.8 % (0-5); Hematocrit 45.6 % (40-54); Hemoglobin 16.9 g/dL (13.0-16.5); Lymphocyte # 2.28 X10^3/ul (4.0); Lymphocyte % 22.8 % (19-41); Mean Corp Hgb Conc 37.1 g/dL (32-36); Mean Corpuscular Hgb 32.3 pg (27.0-32.0); Mean Corpuscular Volume 87.2 fL (80-94); Mean Platelet Vol. 9.4 fl (6.2-12.0); NRBC Flagged by Analyzer 0 % (0-5); Neutrophil # 6.48 X10^3/uL (2.7-7.7); Neutrophil % 64.6 % (47-70); Platelet Count 266 K/mm3 (150-450); RBC Distribution Width CV 13.7 % (11.6-14.6); RBC Distribution Width SD 39.5 fl (35.1-43.9); Red Blood Count 5.23 M/mm3 (4.6-6.2)
[2020-07-25] MEDS: Ketorolac 30 MG/ML Syringe IV (17:08)
[2020-07-25] MEDS: hydrOXYzine PAM 25 MG Capsule PO (17:09)
[2020-07-25 17:39] LABS: AST(SGOT) 9 U/L (15-37); Alanine Aminotransfer ALT/SGPT 22 U/L (16-61); Albumin, Serum 3.7 g/dL (3.2-5.0); Alkaline Phosphatase 54 U/L (45-117); Anion Gap 4 (5-15); BUN 12 mg/dL (7-18); BUN/Creat Ratio 12.5 RATIO (10-20); Chloride 107 mmol/L (98-107); Creatinine, Serum 0.96 mg/dL (0.70-1.30); EST Glomerular Filtration Rate 89 mL/min (>60); Est Glom Filt Rate - Afr Amer 108 mL/min (>60); Estimated Creatinine Clearance 100.23 ml/min; Globulin 3.6 g/dL (2.2-4.2); Glucose 87 mg/dL (74-106); Potassium 3.8 mmol/L (3.5-5.1); Protein, Total 7.3 g/dL (6.4-8.2); Sodium Level 138 mmol/L (136-145)
[2020-07-25 18:02] LABS: Alcohol, Blood (Medical)-Serum < 3.0 mg/dL
[2020-07-25 18:50] LABS: Amphetamine Urine VISTA NEGATIVE (<1000 ng/mL); Barbiturate Urine VISTA NEGATIVE (< 200 ng/mL); Benzodiazepine Urine VISTA NEGATIVE (< 200 ng/mL); Cocaine Urine VISTA NEGATIVE (< 300 ng/mL); Ecstacy Urine VISTA NEGATIVE (< 500 ng/mL); Methadone Urine VISTA NEGATIVE (< 300 ng/mL); PCP Urine VISTA NEGATIVE (< 25 ng/mL); THC Urine VISTA POSITIVE (< 50 ng/mL); Vista UDS pH Range 7
[2020-07-25 19:13] VITALS: BP 150/104; PULSE 65; RESP 18; TEMP 36.6; O2SAT 100
--- NOTE | 2020-07-25 19:14 | ED.RN ---
Pt did not want to remove his pants at this time because the room is to cold. Pt said he will remove them in the room. Pt said i will follow the rules. contract signed
[2020-07-25 19:15] VITALS: BMI 27.2
--- NOTE | 2020-07-25 19:20 | CM.ED ---
SOCIAL WORK Call to [facility] Treatment Navigator, Kassy. Updated on patient's admission to [facility]. Per Kassy, she or Cody will be in tomorrow to complete assessment. Ulises Alexander, ENGINE WATCHMAN, TURBINE BLADE ASSEMBLER
[2020-07-25 19:21] VITALS: BMI 25.7
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
[2020-07-25 20:21] VITALS: BP 160/97; PULSE 50; RESP 18; TEMP 36.9; O2SAT 99
[2020-07-25] MEDS: Buprenorphine HCl 2 MG TAB.SUBL SL (21:21)
[2020-07-25] MEDS: hydrOXYzine PAM 25 MG Capsule 50 MG PO (21:21)
[2020-07-25] MEDS: DOXEPIN HCL 50 MG CAPSULE PO (21:21)
[2020-07-25] MEDS: Ibuprofen 600 MG Tablet PO (21:28)
[2020-07-26 02:32] VITALS: BP 129/86; PULSE 61; RESP 16; TEMP 36.8; O2SAT 98
[2020-07-26] MEDS: Dicyclomine 10 MG Capsule 20 MG PO (02:38)
[2020-07-26] MEDS: Buprenorphine HCl 2 MG TAB.SUBL SL ×3 (05:20→21:17)
[2020-07-26] MEDS: Methocarbamol 750 MG Tablet 1500 MG PO (05:25)
[2020-07-26 09:05] VITALS: BP 133/78; PULSE 69; RESP 18; TEMP 36.7; O2SAT 99
[2020-07-26] MEDS: Pantoprazole Sodium 40 MG Tablet PO (09:09)
[2020-07-26] MEDS: hydrOXYzine PAM 25 MG Capsule 50 MG PO (09:09)
[2020-07-26] MEDS: Ibuprofen 600 MG Tablet PO (09:10)
--- NOTE | 2020-07-26 11:30 | CASEMGMT ---
Social Work Note SW received call from Cody at [facility] stating she will be at [facility] later today to see pt. Shelbi Avila FRONT DESK ATTENDANT, SOURCING CONSULTANT
--- NOTE | 2020-07-26 11:45 | PCM.PN.HOSP ---
Patient Problems: Active and Suspected Problems Opiate withdrawal (Acute) Opiate abuse, continuous (Acute) Alcohol abuse (Acute) Subjective: Tremulous today though he states that he is certain he will be able to complete rehab at this time. Vitals/I&O's: Vital Signs Temp Pulse Resp BP Pulse Ox 98.1 F 69 18 133/78 H 99 07/26/20 09:05 07/26/20 09:05 07/26/20 09:05 07/26/20 09:05 07/26/20 09:05 Oxygen Delivery Method Room Air Weight: 184 lb 8 oz Body Mass Index (BMI) 25.7 Intake and Output for Last 24 Hours 07/24/20 07/25/20 07/26/20 23:59 23:59 23:59 Intake Total 700 / 700 Balance 700 / 700 General: Alert, Oriented x3, Cooperative, No apparent distress HEENT: Atraumatic, PERRLA, EOMI, Normocephalic Oral: Moist Mucosa Neck: Supple, No JVD Lungs: Clear to auscultation, Normal air movement, No rhonchi, No wheeze, No rales Cardiovascular: Regular rate, Regular Rhythm, Normal S1, Normal S2, No murmurs Abdomen: Soft, Non Tender, Non-Distended, No Hepato-splenomegaly Extremities: No edema, Capillary Refill Less than 3 Seconds Skin: No rashes, No breakdown Neurological: Neuro grossly intact, Sensory exam intact to light touch and pain Psych/Mental Status: Anxious Laboratory Results 07/25/20 16:50: WBC 10.0, RBC 5.23, Hgb 16.9 H, Hct 45.6, MCV 87.2, MCH 32.3 H, MCHC 37.1 H, RDW Std Deviation 39.5, RDW Coeff of Mayte 13.7, Plt Count 266, MPV 9.4, Immature Gran % (Auto) 0.200, Neut % (Auto) 64.6, Lymph % (Auto) 22.8, [place] % (Auto) 11.0 H, Eos % (Auto) 0.8, Baso % (Auto) 0.6, Absolute Neuts (auto) 6.5, Absolute Lymphs (auto) 2.28, Nucleated RBC % 0 07/25/20 16:50: Sodium 138, Potassium 3.8, Chloride 107, Carbon Dioxide 27.0, Anion Gap 4 L, BUN 12, Creatinine 0.96, Estim Creat Clear Calc 100.23, Est GFR (MDRD) Af Amer 108, Est GFR (MDRD) Non-Af 89, BUN/Creatinine Ratio 12.5, Glucose 87, Calcium 9.0, Total Bilirubin 0.80, AST 9 L, ALT 22, Alkaline Phosphatase 54, Total Protein 7.3, Albumin 3.7, Globulin 3.6, Albumin/Globulin Ratio 1.0 07/25/20 16:50: Ethyl Alcohol < 3.0 07/25/20 17:20: Urine Opiates Screen NEGATIVE, Urine Methadone Screen NEGATIVE, Ur Barbiturates Screen NEGATIVE, Ur Phencyclidine Scrn NEGATIVE, Ur Amphetamines Screen NEGATIVE, U Methamphetamin-MDMA NEGATIVE, U Benzodiazepines Scrn NEGATIVE, Urine Cocaine Screen NEGATIVE, U Cannabinoids Screen POSITIVE H, Ur Drug Screen Comment Current Medications Acetaminophen (Acetaminophen 500 Mg Tablet) 500 mg PO Q4H PRN PRN PRN Reason: Temp > 100.4 F Al Hydroxide/Mg Hydroxide (Mag Hydrox/Al Hydrox/Simeth 30 Ml Udc) 30 ml PO Q6H PRN PRN PRN Reason: dyspesia Bisacodyl (Bisacodyl 10 Mg Suppository) 10 mg RECTAL DAILY PRN PRN Reason: Constipation Buprenorphine HCl (Buprenorphine Hcl 2 Mg Tab.Subl) 4 mg SL Q8H CLAY; Taper Stop: 07/28/20 21:29 Last Admin: 07/26/20 05:20 Dose: 4 mg Documented by: Clonidine (Clonidine Hcl 0.1 Mg Tablet) 0.1 mg PO Q8H PRN PRN PRN Reason: RESTLESSNESS Dicyclomine HCl (Dicyclomine 10 Mg Capsule) 20 mg PO Q6H PRN PRN PRN Reason: Abdominal Discomfort Last Admin: 07/26/20 02:38 Dose: 20 mg Documented by: Doxepin HCl (Doxepin Hcl 50 Mg Capsule) 50 mg PO QHS CLAY Last Admin: 07/25/20 21:21 Dose: 50 mg Documented by: Hydroxyzine Pamoate (Hydroxyzine Andreia 25 Mg Capsule) 50 mg PO Q6H PRN PRN PRN Reason: mild anxiety Last Admin: 07/26/20 09:09 Dose: 50 mg Documented by: Ibuprofen (Ibuprofen 600 Mg Tablet) 600 mg PO Q8H PRN PRN PRN Reason: Pain Score 1-10 Last Admin: 07/26/20 09:10 Dose: 600 mg Documented by: Loperamide HCl (Loperamide 2 Mg Capsule) 2 mg PO Q4H PRN PRN PRN Reason: LOOSE STOOLS Methocarbamol (Methocarbamol 750 Mg Tablet) 1,500 mg PO Q6H PRN PRN PRN Reason: MUSCLE SPASM Last Admin: 07/26/20 05:25 Dose: 1,500 mg Documented by: Nicotine (Nicotine 21 Mg Patch) 21 mg TD DAILY [facility] Last Admin: 07/26/20 09:10 Dose: 21 mg Documented by: Non-Formulary Medication (Testosterone Enanthate) 225 mg IM QWEEK [facility] Ondansetron HCl (Ondansetron 8 Mg Tablet) 8 mg PO Q8H PRN PRN PRN Reason: NAUSEA Pantoprazole Sodium (Pantoprazole Sodium 40 Mg Tablet) 40 mg PO DAILY [facility] Last Admin: 07/26/20 09:09 Dose: 40 mg Documented by: Senna (Senna Tablet) 2 tablet PO QHS PRN PRN Reason: Constipation Trazodone HCl (Trazodone 100 Mg Tablet) 100 mg PO QHS PRN PRN PRN Reason: INSOMNIA STROKE Vital Signs/Narrative: Vital Signs Temp Pulse Resp BP Pulse Ox 07/26/20 09:05 98.1 F 69 18 133/78 H 99 Medical Necessity - Tobacco Use Smoking Status: Current every day smoker Tobacco Use: Cigarettes Assessment/Plan All Active Problems Opiate withdrawal (Acute) Opiate abuse, continuous (Acute) Alcohol abuse (Acute) 1. Acute opiate withdrawal/acute alcohol withdrawal -Continue with alcohol withdrawal protocol with phenobarbital taper -Continue with the opiate withdrawal protocol -I discussed with him that once again he will not be discharged on any medications needs to follow-up with outpatient rehab when he gets back to [place]. DVT: Ambulation Inpatient E&M: 31625 Subs Hosp L2
[2020-07-26] MEDS: Gabapentin 300 MG Capsule PO (12:16)
[2020-07-26] MEDS: Phenobarbital 32.4 MG Tablet 64.8 MG PO ×3 (12:16→21:17)
[2020-07-26 13:36] VITALS: BP 134/85; PULSE 67; RESP 18; TEMP 37.2; O2SAT 97
[2020-07-26] MEDS: cloNIDine HCl 0.1 MG Tablet PO (13:42)
[2020-07-26] MEDS: Senna Tablet 2 TABLET PO (13:54)
[2020-07-26 16:35] VITALS: BP 145/99; PULSE 60; RESP 16; TEMP 36.4; O2SAT 98
[2020-07-26 21:12] VITALS: BP 140/87; PULSE 52; RESP 16; TEMP 36.8; O2SAT 100
[2020-07-26] MEDS: DOXEPIN HCL 50 MG CAPSULE PO (21:17)
[2020-07-27 01:04] VITALS: BP 137/90; PULSE 56; RESP 16; TEMP 36.5; O2SAT 100
[2020-07-27] MEDS: Phenobarbital 32.4 MG Tablet 64.8 MG PO ×6 (01:06→20:49)
[2020-07-27 04:45] VITALS: BP 143/95; PULSE 53; RESP 16; TEMP 36.4; O2SAT 99
[2020-07-27] MEDS: Buprenorphine HCl 2 MG TAB.SUBL SL ×3 (04:46→20:49)
[2020-07-27 08:40] VITALS: BP 133/85; PULSE 67; RESP 16; TEMP 36.5; O2SAT 99
[2020-07-27] MEDS: Thiamine Hydrochloride 100 MG Tablet PO (08:46)
[2020-07-27] MEDS: Pantoprazole Sodium 40 MG Tablet PO (08:46)
[2020-07-27] MEDS: Folic Acid 1 MG Tablet PO (08:46)
--- NOTE | 2020-07-27 11:09 | PCM.PN.HOSP ---
Patient Problems: Active and Suspected Problems Opiate withdrawal (Acute) Opiate abuse, continuous (Acute) Alcohol abuse (Acute) Subjective: Doing well, resting. No issues overnight Vitals/I&O's: Vital Signs Temp Pulse Resp BP Pulse Ox 97.7 F L 67 16 133/85 H 99 07/27/20 08:40 07/27/20 08:40 07/27/20 08:40 07/27/20 08:40 07/27/20 08:40 Oxygen Delivery Method Room Air Weight: 184 lb 8 oz Body Mass Index (BMI) 25.7 Intake and Output for Last 24 Hours 07/25/20 07/26/20 07/27/20 23:59 23:59 23:59 Intake Total 700 / 1300 1250 / 1250 Balance 700 / 1300 1250 / 1250 General: Alert, Oriented x3, Cooperative, No apparent distress HEENT: Atraumatic, PERRLA, EOMI, Normocephalic Oral: Moist Mucosa Neck: Supple, No JVD Lungs: Clear to auscultation, Normal air movement, No rhonchi, No wheeze, No rales Cardiovascular: Regular rate, Regular Rhythm, Normal S1, Normal S2, No murmurs Abdomen: Soft, Non Tender, Non-Distended, No Hepato-splenomegaly Extremities: No edema, Capillary Refill Less than 3 Seconds Skin: No rashes, No breakdown Neurological: Neuro grossly intact, Sensory exam intact to light touch and pain Psych/Mental Status: Appropriate, normal affect Current Medications Acetaminophen (Acetaminophen 500 Mg Tablet) 500 mg PO Q4H PRN PRN PRN Reason: Temp > 100.4 F Al Hydroxide/Mg Hydroxide (Mag Hydrox/Al Hydrox/Simeth 30 Ml Udc) 30 ml PO Q6H PRN PRN PRN Reason: dyspesia Bisacodyl (Bisacodyl 10 Mg Suppository) 10 mg RECTAL DAILY PRN PRN Reason: Constipation Buprenorphine HCl (Buprenorphine Hcl 2 Mg Tab.Subl) 2 mg SL Q8H [facility]; Taper Stop: 07/28/20 21:29 Last Admin: 07/27/20 04:46 Dose: 2 mg Documented by: Clonidine (Clonidine Hcl 0.1 Mg Tablet) 0.1 mg PO Q8H PRN PRN PRN Reason: RESTLESSNESS Last Admin: 07/26/20 13:42 Dose: 0.1 mg Documented by: Dicyclomine HCl (Dicyclomine 10 Mg Capsule) 20 mg PO Q6H PRN PRN PRN Reason: Abdominal Discomfort Last Admin: 07/26/20 02:38 Dose: 20 mg Documented by: Doxepin HCl (Doxepin Hcl 50 Mg Capsule) 50 mg PO QHS [facility] TO [facility] Last Admin: 07/26/20 21:17 Dose: 50 mg Documented by: Folic Acid (Folic Acid 1 Mg Tablet) 1 mg PO DAILY@0800 [facility] Last Admin: 07/27/20 08:46 Dose: 1 mg Documented by: Gabapentin (Gabapentin 300 Mg Capsule) 300 mg PO Q8H PRN PRN PRN Reason: moderate to severe anxiety Last Admin: 07/26/20 12:16 Dose: 300 mg Documented by: Hydroxyzine Pamoate (Hydroxyzine Andreia 25 Mg Capsule) 50 mg PO Q6H PRN PRN PRN Reason: mild anxiety Last Admin: 07/26/20 09:09 Dose: 50 mg Documented by: Ibuprofen (Ibuprofen 600 Mg Tablet) 600 mg PO Q8H PRN PRN PRN Reason: Pain Score 1-10 Last Admin: 07/26/20 09:10 Dose: 600 mg Documented by: Loperamide HCl (Loperamide 2 Mg Capsule) 2 mg PO Q4H PRN PRN PRN Reason: LOOSE STOOLS Methocarbamol (Methocarbamol 750 Mg Tablet) 1,500 mg PO Q6H PRN PRN PRN Reason: MUSCLE SPASM Last Admin: 07/26/20 05:25 Dose: 1,500 mg Documented by: Nicotine (Nicotine 21 Mg Patch) 21 mg TD DAILY [facility] Last Admin: 07/27/20 08:46 Dose: 21 mg Documented by: Ondansetron HCl (Ondansetron 8 Mg Tablet) 8 mg PO Q8H PRN PRN PRN Reason: NAUSEA Pantoprazole Sodium (Pantoprazole Sodium 40 Mg Tablet) 40 mg PO DAILY [facility] Last Admin: 07/27/20 08:46 Dose: 40 mg Documented by: Phenobarbital (Phenobarbital 32.4 Mg Tablet) 97.2 mg PO Q4H [facility]; Taper Stop: 07/30/20 20:14 Last Admin: 07/27/20 08:43 Dose: 97.2 mg Documented by: Senna (Senna Tablet) 2 tablet PO QHS PRN PRN Reason: Constipation Last Admin: 07/26/20 13:54 Dose: 2 tablet Documented by: Thiamine HCl (Thiamine Hydrochloride 100 Mg Tablet) 100 mg PO DAILYCM [facility] Last Admin: 07/27/20 08:46 Dose: 100 mg Documented by: Trazodone HCl (Trazodone 100 Mg Tablet) 100 mg PO QHS PRN PRN PRN Reason: INSOMNIA STROKE Vital Signs/Narrative: Vital Signs Temp Pulse Resp BP Pulse Ox 07/27/20 08:40 97.7 F L 67 16 133/85 H 99 Medical Necessity - Tobacco Use Smoking Status: Current every day smoker Tobacco Use: Cigarettes Assessment/Plan All Active Problems Opiate withdrawal (Acute) Opiate abuse, continuous (Acute) Alcohol abuse (Acute) 1. Acute opiate withdrawal/acute alcohol withdrawal -Continue with alcohol withdrawal protocol with phenobarbital taper -Continue with the opiate withdrawal protocol -I discussed with him that once again he will not be discharged on any medications needs to follow-up with outpatient rehab when he gets back to [place]. DVT: Ambulation Inpatient E&M: 09317 Subs Hosp L2
[2020-07-27 16:30] VITALS: BP 125/93; PULSE 76; RESP 16; TEMP 36.8; O2SAT 97
--- NOTE | 2020-07-27 17:35 | CHAPLAIN ---
Type of Pastoral Visit _x__ Initial Visit ___ Follow-up Visit ___ On-call Visit ___ General Patient Visit ___ Spiritual Assessment ___ Family Conference ___ Bereavement ___ Rapid Response ___ Code Blue ___ Other (describe below) Pastoral Care Referral From _x__ Patient ___ Family ___ Nurse ___ Physician ___ Client Experience Administrator ___ Farm Marketer ___ Other (describe below) Sacrament/Intervention _x__ Active listening ___ Anointing ___ Judaism ___ Bereavement ___ Communion _x__ Lidia exploration ___ _x__ Life review _x__ Prayer ___ Reconciliation ___ Sacrament of Sick _x__ Supportive presence ___ Wedding ___ Other (describe below) Pastoral Comments long discussion with patient being open about life, his past, his former recovery, and his plan for new recovery; pt asks many spiritual questions and is processing his own spiritual journey; pt has history of involvement in worship and knowing God personally in his life; gave length of time to explore with pt and pray with him; pt open to future visits
[2020-07-27 20:46] VITALS: BP 143/95; PULSE 66; RESP 14; TEMP 36.9; O2SAT 100
[2020-07-27] MEDS: DOXEPIN HCL 50 MG CAPSULE PO (20:49)
[2020-07-28] MEDS: Phenobarbital 32.4 MG Tablet 64.8 MG PO ×3 (00:16→09:16)
[2020-07-28 03:51] VITALS: BP 127/86; PULSE 70; RESP 18; TEMP 36.6; O2SAT 98
[2020-07-28 08:59] VITALS: BP 143/84; PULSE 69; RESP 16; TEMP 36.6; O2SAT 100
[2020-07-28] MEDS: Thiamine Hydrochloride 100 MG Tablet PO (09:16)
[2020-07-28] MEDS: Folic Acid 1 MG Tablet PO (09:16)
[2020-07-28] MEDS: Buprenorphine HCl 2 MG TAB.SUBL SL (09:17)
[2020-07-28] MEDS: Pantoprazole Sodium 40 MG Tablet PO (09:17)
--- NOTE | 2020-07-28 09:55 | DCINST_ITS ---
- Discharge Diagnoses Current Active Problems: Current Active and Chronic Problems Alcohol use disorder (Chronic) Opioid abuse (Chronic) Polysubstance abuse (Chronic) Opiate withdrawal (Acute) Opiate abuse, continuous (Acute) Alcohol abuse (Acute) You will use the following diet at home:: Regular Your food should be the consistency of: Regular Your liquids should be the consistency of: Regular/Thin Discharge Activity: Return to Normal Activity Call your doctor if you observe: Fever of 101 or Higher, Shortness of breath, Dizziness, Fainting spells, Swelling in the ankles, Chest pain, Increased palpitations (irregular heartbeat) Allergies/Adverse Reactions: Allergies No Known Allergies Allergy (Verified 06/18/20 19:58) Medications to take at Discharge Pantoprazole Sodium [Protonix] 40 mg PO DAILY 05/12/20 Testosterone Enanthate 225 mg IM QWEEK 06/18/20 Doxepin HCl 50 mg PO QHS 07/25/20 Gabapentin [Neurontin] 600 mg PO 4X/DAY 07/25/20 Primary Care Physician: SHELDON WESTBROOK [Other] Please follow up with your Primary Care Physician in: 3-5 days Test Results: Test results from this visit will be discussed in further detail at your follow- up appointment, if applicable. Please Follow Up With: Outpatient Rehab
--- NOTE | 2020-07-28 09:55 | PCM.DC.SUM ---
Discharge Date and Diagnosis - Problem List Patient Problems: Active and Suspected Problems Opiate withdrawal (Acute) Opiate abuse, continuous (Acute) Alcohol abuse (Acute) Date of Admission: 07/25/20 Date of Discharge: 07/28/20 - Primary Discharge Diagnosis Acute Problems: Active Problems Opiate withdrawal (Acute) Opiate abuse, continuous (Acute) Alcohol abuse (Acute) - Secondary Discharge Diagnosis Chronic Problems: Chronic Problems Alcohol use disorder (Chronic) Opioid abuse (Chronic) Polysubstance abuse (Chronic) Hospital Course and Treatment Operations: None Procedures: None Summary of Care Provided: Per HPI: The patient is a 50 year old M presents seeking treatment for alcohol and opiate withdrawal. Patient said his last use was 24 hours ago and he says he has everything in regards to symptoms for withdrawal. He states that he is tremulous nauseated. Patient with was here a month ago treated and stated that he stopped taking the buprenorphine I was here. Patient was discharged to home to follow-up with a program in [place]. He stated that he never followed up with the program and that he is good to be staying up with his sisters and wishes to follow-up with programs locally for his addiction treatment. Hospital Course: 1. Acute opiate withdrawal/acute alcohol withdrawal -Continue with alcohol withdrawal protocol with phenobarbital taper -Continue with the opiate withdrawal protocol -I discussed with him that once again he will not be discharged on any medications needs to follow-up with outpatient rehab when he gets back to [place]. -Discussed plan for discharge today, he expressed understanding the risk benefits of going home and would like to go home today. Patient Problems: Active and Suspected Problems Opiate withdrawal (Acute) Opiate abuse, continuous (Acute) Alcohol abuse (Acute) - Physical Exam Vitals/I&O's: Vital Signs Temp Pulse Resp BP Pulse Ox 97.8 F 69 16 143/84 H 100 07/28/20 08:59 07/28/20 08:59 07/28/20 08:59 07/28/20 08:59 07/28/20 08:59 Oxygen Delivery Method Room Air Weight: 184 lb 8 oz Body Mass Index (BMI) 25.7 Intake and Output for Last 24 Hours 07/26/20 07/27/20 07/28/20 23:59 23:59 23:59 Intake Total 700 / 1300 1250 / 1650 1050 / 1050 Balance 700 / 1300 1250 / 1650 1050 / 1050 General: Alert, Oriented x3, Cooperative, No apparent distress HEENT: Atraumatic, PERRLA, EOMI, Normocephalic Oral: Moist Mucosa Neck: Supple, No JVD Lungs: Clear to auscultation, Normal air movement, No rhonchi, No wheeze, No rales Cardiovascular: Regular rate, Regular Rhythm, Normal S1, Normal S2, No murmurs Abdomen: Soft, Non Tender, Non-Distended, No Hepato-splenomegaly Extremities: No edema, Capillary Refill Less than 3 Seconds Skin: No rashes, No breakdown Neurological: Neuro grossly intact, Sensory exam intact to light touch and pain Psych/Mental Status: Appropriate, normal affect Current Medications Acetaminophen (Acetaminophen 500 Mg Tablet) 500 mg PO Q4H PRN PRN PRN Reason: Temp > 100.4 F Al Hydroxide/Mg Hydroxide (Mag Hydrox/Al Hydrox/Simeth 30 Ml Udc) 30 ml PO Q6H PRN PRN PRN Reason: dyspesia Bisacodyl (Bisacodyl 10 Mg Suppository) 10 mg RECTAL DAILY PRN PRN Reason: Constipation Buprenorphine HCl (Buprenorphine Hcl 2 Mg Tab.Subl) 2 mg SL Q12H [facility]; Taper Stop: 07/28/20 21:29 Last Admin: 07/28/20 09:17 Dose: 2 mg Documented by: Clonidine (Clonidine Hcl 0.1 Mg Tablet) 0.1 mg PO Q8H PRN PRN PRN Reason: RESTLESSNESS Last Admin: 07/26/20 13:42 Dose: 0.1 mg Documented by: Dicyclomine HCl (Dicyclomine 10 Mg Capsule) 20 mg PO Q6H PRN PRN PRN Reason: Abdominal Discomfort Last Admin: 07/26/20 02:38 Dose: 20 mg Documented by: Doxepin HCl (Doxepin Hcl 50 Mg Capsule) 50 mg PO QHS [facility] Last Admin: 07/27/20 20:49 Dose: 50 mg Documented by: Folic Acid (Folic Acid 1 Mg Tablet) 1 mg PO DAILY@0800 [facility] Last Admin: 07/28/20 09:16 Dose: 1 mg Documented by: Gabapentin (Gabapentin 300 Mg Capsule) 300 mg PO Q8H PRN PRN PRN Reason: moderate to severe anxiety Last Admin: 07/26/20 12:16 Dose: 300 mg Documented by: Hydroxyzine Pamoate (Hydroxyzine Andreia 25 Mg Capsule) 50 mg PO Q6H PRN PRN PRN Reason: mild anxiety Last Admin: 07/26/20 09:09 Dose: 50 mg Documented by: Ibuprofen (Ibuprofen 600 Mg Tablet) 600 mg PO Q8H PRN PRN PRN Reason: Pain Score 1-10 Last Admin: 07/26/20 09:10 Dose: 600 mg Documented by: Loperamide HCl (Loperamide 2 Mg Capsule) 2 mg PO Q4H PRN PRN PRN Reason: LOOSE STOOLS Methocarbamol (Methocarbamol 750 Mg Tablet) 1,500 mg PO Q6H PRN PRN PRN Reason: MUSCLE SPASM Last Admin: 07/26/20 05:25 Dose: 1,500 mg Documented by: Nicotine (Nicotine 21 Mg Patch) 21 mg TD DAILY [facility] Last Admin: 07/28/20 09:17 Dose: 21 mg Documented by: Ondansetron HCl (Ondansetron 8 Mg Tablet) 8 mg PO Q8H PRN PRN PRN Reason: NAUSEA Pantoprazole Sodium (Pantoprazole Sodium 40 Mg Tablet) 40 mg PO DAILY [facility] Last Admin: 07/28/20 09:17 Dose: 40 mg Documented by: Phenobarbital (Phenobarbital 32.4 Mg Tablet) 64.8 mg PO Q4H [facility]; Taper Stop: 07/30/20 20:14 Last Admin: 07/28/20 09:16 Dose: 64.8 mg Documented by: Senna (Senna Tablet) 2 tablet PO QHS PRN PRN Reason: Constipation Last Admin: 07/26/20 13:54 Dose: 2 tablet Documented by: Thiamine HCl ([facility]chloride 100 Mg [facility]t) [facility] Last Admin: 07/28/20 09:16 Dose: 100 mg Documented by: Trazodone HCl (Trazodone 100 Mg Tablet) 100 mg PO QHS PRN PRN PRN Reason: INSOMNIA Discharge Activity: Return to Normal Activity Call your doctor if you observe: Fever of 101 or Higher, Shortness of breath, Dizziness, Fainting spells, Swelling in the ankles, Chest pain, Increased palpitations (irregular heartbeat) Home Medications: Medications to take at Discharge Pantoprazole Sodium [Protonix] 40 mg PO DAILY 05/12/20 Testosterone Enanthate 225 mg IM QWEEK 06/18/20 Doxepin HCl 50 mg PO QHS 07/25/20 Gabapentin [Neurontin] 600 mg PO 4X/DAY 07/25/20 Primary Care Physician: SHELDON WESTBROOK [Other] Please follow up with your Primary Care Physician in: 3-5 days Please Follow Up With: Outpatient Rehab Disposition: Home Minutes spent on discharge:: 35 Patient Condition:: Stable Medical Necessity - Tobacco Use Smoking Status: Current every day smoker Tobacco Use: Cigarettes Meaningful Use Info Meaningful Use Diagnoses (Choose all that apply): None applicable Inpatient E&M: 32957 Disch Hosp
[2020-07-28] MEDS: Ibuprofen 600 MG Tablet PO (11:03)
== END 2020-07-28 13:30 | disposition home or self-care (01) | DRG 773 ==
LOC: ED 19:01 → MS3 19:54
PROVIDERS: Emergency Provider Emergency Medicine; Visit Provider Family Medicine
DX: F11.23 Opioid dependence with withdrawal (principal); F19.10 Other psychoactive substance abuse, uncomplicated; F10.239 Alcohol dependence with withdrawal, unspecified; F17.210 Nicotine dependence, cigarettes, uncomplicated; Y90.9 Presence of alcohol in blood, level not specified
CPT/HCPCS: 80053; 80307; 80320; 85025; 99284; A4216; G0480

== ENCOUNTER 2021-02-17 10:05 | Observation (INO) | payer MEDICAID, SELFPAY ==
[2021-02-17 10:08] VITALS: BP 150/116; PULSE 90; RESP 17; TEMP 36.2; O2SAT 95; BMI 25.4
--- NOTE | 2021-02-17 10:38 | EKG12_ITS ---
Test Reason : Blood Pressure : / mmHG Vent. Rate : 091 BPM Atrial Rate : 091 BPM P-R Int : 158 ms QRS Dur : 100 ms QT Int : 346 ms P-R-T Axes : 065 033 016 degrees QTc Int : 425 ms Normal sinus rhythm Possible Anterior infarct , age undetermined Abnormal ECG Confirmed by VASHTI ERWIN, TAZ ([id number]), supervisor framing mill SHELDON VERMA ([id number]) on 02/20/2021 9:50:54 AM Referred By: EVER Confirmed By:JAYRO KINGSTON MD
--- NOTE | 2021-02-17 10:38 | EDS_ITS ---
HPI History of Present Illness Chief Complaint: Substance Abuse Informant: patient Narrative Narrative: 50-year-old male presents to the emergency room seeking detox from alcohol and fentanyl. Patient smokes up to a gram of fentanyl a day. He states he uses alcohol in the form of at least 6 tall boys a day with shots. He states he lasted detox last winter. He did not follow-up with anybody. He states his girlfriend is also an addict. Currently she is in correction. He has a pending court case on March 09. He last used about 56 hours ago. He notes diarrhea, body aches, tremor, palpitations, and nausea. [facility] Medical History (Updated 02/17/21 @ 10:[address] Tom Gann DO) Alcohol abuse Opioid abuse Home Medications pantoprazole 40 mg PO DAILY 05/12/20 [History Last Taken 07/23/20] testosterone enanthate 225 mg IM QWEEK 06/18/20 [History Last Taken 07/04/20] doxepin 50 mg PO QHS 07/25/20 [History Last Taken 07/18/20] gabapentin 600 mg PO 4X/DAY 07/25/20 [History Last Taken 07/23/20] clonidine HCl 0.1 mg PO DAILY 02/17/21 [History Last Taken Unknown] hydroxyzine pamoate 02/17/21 [History Last Taken Unknown] Allergy/AdvReac Type Severity Reaction Status Date / Time No Known Allergies Allergy Verified 02/17/21 10:07 Surgical History (Updated 02/17/21 @ 10:[address] Tom Gann DO) History of ankle surgery Social History (Updated 02/17/21 @ 10:[address] Tom Gann DO) Smoking Status: Current every day smoker tobacco type: cigarettes alcohol intake: current alcohol intake frequency: 3 or more drinks per day substance use type: opiates ROS ROS ED Constitutional Constitutional ED: Reports chills and sweats; Denies fever(s) or weight loss Eyes Eyes: Denies change in vision or diplopia ENT ENT ED: Reports rhinorrhea; Denies ear pain or sore throat Cardiovascular Cardiovascular: Reports palpitations; Denies chest pain, orthopnea or racing heartbeat Respiratory/Chest Respiratory/Chest: Denies cough, dyspnea or orthopnea Gastrointestinal Gastrointestinal: Reports diarrhea, nausea and other Details: Abdominal cramps ; Denies abdominal pain or vomiting Genitourinary Genitourinary ED: Denies dysuria, hematuria or urinary frequency Musculoskeletal Musculoskeletal: Reports myalgias; Denies arthralgias Integumentary Denies abscess or rash Neurologic Neurologic: Denies headache(s) or weakness Psychiatric Psychiatric: Denies anxiety, depression, suicidal ideation or suicidal thoughts Endocrine Endocrinology: Denies polydipsia, polyphagia or polyuria Allergic/Immunologic Allergic/Immunologic ED: Denies mouth swelling, tongue swelling or urticaria EXAM Physical Exam Const Vital Signs: 02/17/21 10:08 Temperature 97.2 F L Temperature Source Temporal Pulse Rate 90 Respiratory Rate 17 Blood Pressure 150/116 H Blood Pressure Mean 127 Pulse Ox 95 Oxygen Delivery Method Room Air Positive well nourished and well developed General Appearance ED: well developed HEENT Reports normocephalic, head/scalp atraumatic and moist mucous membranes Eyes PERRL and EOMs intact bilaterally Neck no lymphadenopathy, supple and no JVD Resp normal respiratory effort and clear to auscultation bilaterally Cardio regular rate, regular rhythm and no murmurs GI normal to inspection, nondistended, normoactive bowel sounds and non-tender Palpation: soft Back/Spine no CVA tenderness and normal ROM Extremity normal to inspection General Extremety ED: Negative for edema General Extremity: Negative for edema Neuro oriented x3 and CN's II-XII intact bilaterally Neuro Narrative: Patient has a tremor Sensorium / Orientation: alert Motor Exam: strength 5/5 throughout Psych mental status grossly normal Mood & Affect: Negative for depressed or tearful Skin no rashes or lesions noted and no wounds MDM MDM MDM Narrative Medical decision making narrative: Patient was medically cleared. I will speak with the hospitalist regarding admission. He did receive a dose of Zofran for nausea. Lab Data Attestation: I reviewed the patient's lab results. Labs: Laboratory Results - last 24 hr 02/17/21 02/17/21 02/17/21 10:30 10:33 10:33 WBC 10.5 RBC 6.16 Hgb 18.0 H* Hct 52.0 MCV 84.4 MCH 29.2 MCHC 34.6 RDW Std Deviation 45.7 H RDW Coeff of Mayte 14.9 H Plt Count 289 MPV 9.3 Immature Gran % (Auto) 0.200 Neut % (Auto) 66.7 Lymph % (Auto) 22.1 Johnson % (Auto) 9.6 Eos % (Auto) 0.9 Baso % (Auto) 0.5 Absolute Neuts (auto) 7.0 Absolute Lymphs (auto) 2.31 Nucleated RBC % 0 Diff Path Review May foll Sodium 136 Potassium 3.5 Chloride 105 Carbon Dioxide 25.0 Anion Gap 6 BUN 8 Creatinine 0.82 Estim Creat Clear Calc 117.34 Est GFR (MDRD) Af Amer 128 Est GFR (MDRD) Non-Af 105 BUN/Creatinine Ratio 9.7 L Glucose 85 Calcium 9.5 Total Bilirubin 0.80 AST 20 ALT 35 Alkaline Phosphatase 69 Total Protein 7.5 Albumin 3.5 Globulin 4.0 Albumin/Globulin Ratio 0.9 Urine Opiates Screen NEGATIVE Urine Methadone Screen NEGATIVE Ur Barbiturates Screen NEGATIVE Ur Phencyclidine Scrn NEGATIVE Ur Amphetamines Screen NEGATIVE U Methamphetamin-MDMA NEGATIVE U Benzodiazepines Scrn NEGATIVE Urine Cocaine Screen NEGATIVE U Cannabinoids Screen NEGATIVE Ur Drug Screen Comment Ethyl Alcohol 02/17/21 10:33 WBC RBC Hgb Hct MCV MCH MCHC RDW Std Deviation RDW Coeff of Mayte Plt Count MPV Immature Gran % (Auto) Neut % (Auto) Lymph % (Auto) Johnson % (Auto) Eos % (Auto) Baso % (Auto) Absolute Neuts (auto) Absolute Lymphs (auto) Nucleated RBC % Diff Path Review Sodium Potassium Chloride Carbon Dioxide Anion Gap BUN Creatinine Estim Creat Clear Calc Est GFR (MDRD) Af Amer Est GFR (MDRD) Non-Af BUN/Creatinine Ratio Glucose Calcium Total Bilirubin AST ALT Alkaline Phosphatase Total Protein Albumin Globulin Albumin/Globulin Ratio Urine Opiates Screen Urine Methadone Screen Ur Barbiturates Screen Ur Phencyclidine Scrn Ur Amphetamines Screen U Methamphetamin-MDMA U Benzodiazepines Scrn Urine Cocaine Screen U Cannabinoids Screen Ur Drug Screen Comment Ethyl Alcohol < 3.0 Discharge Plan Dx/Rx/DC Orders Clinical Impression: Opioid abuse, Alcohol abuse Disposition Disposition: Acute Care Hospital [facility]
[2021-02-17 11:03] LABS: Absolute Lymphocyte Count 2.31 X10^3/uL (0.83-4.51); Basophil# 0.05 X10^3/uL; Basophil% 0.5 % (0-1); Eosinophil# 0.09 X10^3/uL; Eosinophils% 0.9 % (0-5); Lymphocyte # 2.31 X10^3/ul (0.83-4.51); Lymphocyte % 22.1 % (19-41); Mean Corp Hgb Conc 34.6 g/dL (32-36); Mean Corpuscular Hgb 29.2 pg (27.0-32.0); Mean Corpuscular Volume 84.4 fL (80-94); Mean Platelet Vol. 9.3 fl (6.2-12.0); Monocyte% 9.6 % (0-10); NRBC Flagged by Analyzer 0 % (0-5); Neutrophil # 6.99 X10^3/uL (2.7-7.7); Neutrophil % 66.7 % (47-70); Platelet Count 289 K/mm3 (150-450); RBC Distribution Width CV 14.9 % (11.6-14.6); RBC Distribution Width SD 45.7 fl (35.1-43.9); Red Blood Count 6.16 M/mm3 (4.6-6.2)
[2021-02-17 11:06] LABS: Amphetamine Urine VISTA NEGATIVE (<1000 ng/mL); Barbiturate Urine VISTA NEGATIVE (< 200 ng/mL); Benzodiazepine Urine VISTA NEGATIVE (< 200 ng/mL); Cocaine Urine VISTA NEGATIVE (< 300 ng/mL); Ecstacy Urine VISTA NEGATIVE (< 500 ng/mL); Methadone Urine VISTA NEGATIVE (< 300 ng/mL); PCP Urine VISTA NEGATIVE (< 25 ng/mL); THC Urine VISTA NEGATIVE (< 50 ng/mL); Vista UDS pH Range 6
[2021-02-17 11:08] LABS: Differential Indicated SCAN CRITERIA MET
[2021-02-17] MEDS: Ondansetron ODT 4 MG Tablet PO (11:12)
[2021-02-17 11:22] LABS: Alcohol, Blood (Medical)-Serum < 3.0 mg/dL
[2021-02-17 11:26] LABS: ALB/GLOB Ratio 0.9 RATIO (0.9-2.4); AST(SGOT) 20 U/L (15-37); Alanine Aminotransfer ALT/SGPT 35 U/L (16-61); Albumin, Serum 3.5 g/dL (3.2-5.0); Alkaline Phosphatase 69 U/L (45-117); Anion Gap 6 (5-15); BUN 8 mg/dL (7-18); BUN/Creat Ratio 9.7 RATIO (10-20); Calcium,Total 9.5 mg/dL (8.5-10.1); Chloride 105 mmol/L (98-107); Creatinine, Serum 0.82 mg/dL (0.70-1.30); EST Glomerular Filtration Rate 105 mL/min (>60); Est Glom Filt Rate - Afr Amer 128 mL/min (>60); Estimated Creatinine Clearance 117.34 ml/min; Glucose 85 mg/dL (74-106); Potassium 3.5 mmol/L (3.5-5.1); Protein, Total 7.5 g/dL (6.4-8.2); Sodium Level 136 mmol/L (136-145)
[2021-02-17 11:33] LABS: White Blood Count 10.5 K/mm3 (4.4-11.0)
--- NOTE | 2021-02-17 11:59 | HP.PCM.HOS_ITS ---
HPI - General General Date of Admission: 02/17/21 HPI Narrative TRAN CARR, is a 50 M who presented to the emergency department [facility] on 02/17/2021 for opiate and alcohol detox. He has been admitted previously for this but states at his July 2020 admission he did not follow- up as an outpatient and relapsed. He admits to using at least 6 sometimes 12 tall boys of beer a day and a pint of whiskey and is using up to 1 g of smoked fentanyl a day. He denies ever using IV drugs. His last fentanyl use was 3 days ago. His last alcohol use was approximately 8:00 last night. He is complaining of piloerection, anxiety, mild nausea with no emesis, diarrhea, and tremor at this time. He denies any other substance abuse other than tobacco of which she smokes approximately half a pack a day. Vital signs show normothermia with hypertension, heart rates within normal limits, respiratory rate and oxygen saturation are within normal limits on room air. CBC is only remarkable for erythrocytosis with a hemoglobin of 18. His BMP is unremarkable. Liver enzymes are within normal limits. And tox screen is negative for all substances. He will be admitted to [facility] for alcohol and opiate detox. [facility] Medical History (Updated 02/17/21 @ 12:[address] Lena Howe DO) Alcohol abuse Opioid abuse Home Medications pantoprazole 40 mg PO DAILY 05/12/20 [History Last Taken 07/23/20] testosterone enanthate 225 mg IM QWEEK 06/18/20 [History Last Taken 07/04/20] doxepin 50 mg PO QHS 07/25/20 [History Last Taken 07/18/20] gabapentin 600 mg PO 4X/DAY 07/25/20 [History Last Taken 07/23/20] clonidine HCl 0.1 mg PO DAILY 02/17/21 [History Last Taken Unknown] hydroxyzine pamoate 02/17/21 [History Last Taken Unknown] Allergy/AdvReac Type Severity Reaction Status Date / Time No Known Allergies Allergy Verified 02/17/21 10:07 Surgical History (Updated 02/17/21 @ 10:[address] Tom Gann DO) History of ankle surgery Social History (Updated 02/17/21 @ 10:[address] Tom Gann DO) Smoking Status: Current every day smoker tobacco type: cigarettes alcohol intake: current alcohol intake frequency: 3 or more drinks per day substance use type: opiates ROS Review of Systems ROS Unobtainable: Denies due to encephalopathy, due to endotracheal tube, due to mental condition, due to mental status or other Constitutional Constitutional: Reports chills; Denies anorexia, change in weight, fatigue, fever(s), malaise, night sweats, weakness or other Eyes Eyes: Denies blurry vision, change in eye color, change in vision, discharge from eye(s), double vision, erythema, eye pain, loss of vision or other ENT HEENT: Denies abnormal hearing, dysphagia, ear pain, epistaxis, headache(s), hearing loss, nasal congestion, nasal discharge, post nasal drip, sinus pressure, sore throat or other Cardiovascular Cardiovascular: Reports rapid heart rate; Denies chest pain, claudication, dyspnea on exertion, edema, lightheadedness, orthopnea, palpitations, paroxysmal nocturnal dyspnea, syncope or other Respiratory/Chest Respiratory/Chest: Denies cough, dyspnea, excessive phlegm production, hemoptysis, productive cough, shortness of breath at rest, shortness of breath with exertion, wheezing or other Gastrointestinal Gastrointestinal: Reports diarrhea and nausea; Denies abdominal pain, coffee ground emesis, constipation, dyspepsia, hematemesis, hematochezia, loose stools, melena, vomiting or other Genitourinary Genitourinary: Denies burning urination, difficulty urinating, dysuria, hematuria, nocturia, urinary frequency, urinary hesitancy, urinary incontinence, urinary urgency or other Musculoskeletal Musculoskeletal: Denies arthralgias, back pain, joint pain, joint stiffness, joint swelling, myalgias, neck pain or other Neurologic Neurologic: Reports tremor(s); Denies abnormal gait, abnormal speech, confusion, disequilibrium, dizziness, focal weakness, headache(s), numbness, paresthesias, seizure-like activity, seizures, syncope, tingling or other Psychiatric Psychiatric: Reports anxiety; Denies depression, homicidal ideation, suicidal ideation or other Endocrine Endocrinology: Denies change in body appearance, cold intolerance, excessive sweating, heat intolerance, polydipsia, polyuria or other Hematologic/Lymphatic Hematologic/Lymphatic: Denies anemia, easy bleeding, easy bruising, lymphadenopathy or other Allergic/Immunologic Allergic/Immunologic: Denies rhinitis, hives, eczemia, asthma or other Vital Signs Vital Signs Vital Signs: 02/17/21 10:08 Temperature 97.2 F L Temperature Source Temporal Pulse Rate 90 Respiratory Rate 17 Blood Pressure 150/116 H Blood Pressure Mean 127 Pulse Ox 95 Oxygen Delivery Method Room Air Weight Weight: 82.9 kg Body Mass Index (BMI) 25.4 Physical Exam Const alert and oriented x3 Constitutional Narrative: Middle-aged white male lying in bed, appears comfortable but mildly anxious, nontoxic General Appearance: cooperative HEENT normocephalic, head/scalp atraumatic, moist oral mucous membranes and oropharynx normal Mouth: oral and palatal mucosa normal Eyes PERRL, EOMs intact bilaterally and conjunctivae normal Neck supple Neck Narrative: Trachea midline Resp normal respiratory effort, no retractions, no use of accessory muscles and clear to auscultation bilaterally Resp Narrative: Diminished but clear Auscultation: Negative for crackles, rales, rhonchi or wheezes Cardio regular rate, regular rhythm, S1 normal heart sound, S2 normal heart sound, no murmurs, no rub, no gallops, no clicks and no JVD GI normal to inspection, nondistended, normoactive bowel sounds, soft to palpation, non-tender and non-distended Extremity normal to inspection and no clubbing, cyanosis or edema Peripheral Pulses: Yes pulses 2+ throughout Neuro oriented x3, CN's II-XII intact bilaterally, moves all extremities and no focal motor deficits Neuro Narrative: Mildly tremulous Sensorium / Orientation: awake, alert, oriented to person, oriented to place and oriented to time Psych Psych Narrative: Affect is slightly flat but good eye contact and normal interaction Results Lab / Micro Data Result Diagrams: 02/17/21 10:33 02/17/21 10:33 Labs: Laboratory Results - last 24 hr 02/17/21 10:30: Urine Opiates Screen NEGATIVE, Urine Methadone Screen NEGATIVE, Ur Barbiturates Screen NEGATIVE, Ur Phencyclidine Scrn NEGATIVE, Ur Amphetamines Screen NEGATIVE, U Methamphetamin-MDMA NEGATIVE, U Benzodiazepines Scrn NEGATIVE, Urine Cocaine Screen NEGATIVE, U Cannabinoids Screen NEGATIVE, Ur Drug Screen Comment 02/17/21 10:33: WBC 10.5, RBC 6.16, Hgb 18.0 H*, Hct 52.0, MCV 84.4, MCH 29.2, MCHC 34.6, RDW Std Deviation 45.7 H, RDW Coeff of Mayte 14.9 H, Plt Count 289, MPV 9.3, Immature Gran % (Auto) 0.200, Neut % (Auto) 66.7, Lymph % (Auto) 22.1, [place] % (Auto) 9.6, Eos % (Auto) 0.9, Baso % (Auto) 0.5, Absolute Neuts (auto) 7.0, Absolute Lymphs (auto) 2.31, Nucleated RBC % 0, Diff Path Review December02/17/21 10:33: Sodium 136, Potassium 3.5, Chloride 105, Carbon Dioxide 25.0, Anion Gap 6, BUN 8, Creatinine 0.82, Estim Creat Clear Calc 117.34, Est GFR (MDRD) Af Amer 128, Est GFR (MDRD) Non-Af 105, BUN/Creatinine Ratio 9.7 L, Glucose 85, Calcium 9.5, Total Bilirubin 0.80, AST 20, ALT 35, Alkaline Phosphatase 69, Total Protein 7.5, Albumin 3.5, Globulin 4.0, Albumin/Globulin Ratio 0.9 02/17/21 10:33: Ethyl Alcohol < 3.0 Assessment & Plan Assessment/Plan (1) Alcohol use disorder: (2) Opioid abuse: (3) Opiate withdrawal: (4) Erythrocytosis: (5) Tobacco abuse: PLAN: Acute opiate and alcohol withdrawal -Last alcoholic drink was last evening at 8 PM -Last fentanyl use was 3 days ago -Start Subutex taper and supportive medications per order set -Start phenobarb taper and supportive medications per order set -Addiction consultation for 180 Erythrocytosis -We will repeat CBC in a.m. -Be related to some dehydration although renal function is normal -Patient is also a smoker Hypertension Continue clonidine GERD -Continue Protonix Low testosterone -Restart supplemental testosterone upon discharge Depression/anxiety -Continue doxepin at at bedtime Tobacco abuse -14 mcg nicotine patch -Recommend cessation DVT prophylaxis -Early ambulation protocol CODE STATUS -Full code Charges/Coding Visit Charges Inpatient E&M: 33820 Subs Hosp L2
--- NOTE | 2021-02-17 12:18 | CM.ED ---
SOCIAL WORK Referral Source: Dr. Gann Reason for Consult: Substance Abuse- requesting detox from alcohol and fentanyl Met with patient in room. Introduced role and reason for referral. Patient states was here for detox over the winter. Patient reports did not follow up with treatment and relapsed. Patient reports last use of fentanyl was 3 days ago and last drink was last evening. Patient completed agreement with nursing and denies any questions or concerns at this time. Call to Anton with [facility], left message updating on [facility] admission. 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
[2021-02-17 12:28] VITALS: BP 152/102; PULSE 92; RESP 18; O2SAT 97
[2021-02-17 12:45] VITALS: BP 153/94; PULSE 98; RESP 14; TEMP 36.8; O2SAT 97
[2021-02-17 13:05] VITALS: BP 144/95; PULSE 88; RESP 18; TEMP 36.5; O2SAT 98
[2021-02-17 13:07] VITALS: BMI 25.4
[2021-02-17] MEDS: Buprenorphine HCl 2 MG TAB.SUBL SL ×2 (13:48→22:04)
[2021-02-17] MEDS: Methocarbamol 750 MG Tablet 1500 MG PO (13:49)
[2021-02-17] MEDS: Pantoprazole Sodium 40 MG Tablet PO (13:49)
[2021-02-17] MEDS: Gabapentin 300 MG Capsule PO (13:49)
[2021-02-17] MEDS: Dicyclomine 10 MG Capsule 20 MG PO (13:49)
[2021-02-17] MEDS: cloNIDine HCl 0.1 MG Tablet PO ×2 (13:49→22:03)
[2021-02-17] MEDS: Phenobarbital 32.4 MG Tablet 64.8 MG PO ×3 (13:49→22:03)
--- NOTE | 2021-02-17 14:14 | ADDICTION ---
This teletypewriter operator met with PT to conduct ASAM, MSE, AUDIT, DUDIT assessments and to plan for d/c. PT A+Ox4 and participated actively. All assessments completed, faxed to [facility] and placed in PT's chart. PT plans to f/u with a residential treatment center closer to his home. Clinician will work on case management to coordinate services. PT did not indicate a need for transportation post d/c from [facility].
[2021-02-17 17:26] VITALS: BP 140/97; PULSE 88; RESP 18; TEMP 37.1; O2SAT 99
[2021-02-17] MEDS: hydrOXYzine PAM 25 MG Capsule 50 MG PO (17:29)
[2021-02-17 22:00] VITALS: BP 139/88; PULSE 85; RESP 16; TEMP 36.8; O2SAT 98
[2021-02-17] MEDS: DOXEPIN HCL 50 MG CAPSULE PO (22:03)
[2021-02-18] MEDS: traZODone 100 MG Tablet PO ×2 (00:03→23:44)
[2021-02-18] MEDS: Phenobarbital 32.4 MG Tablet 64.8 MG PO ×6 (02:32→21:27)
[2021-02-18 06:22] VITALS: BP 139/90; PULSE 69; RESP 18; TEMP 36.8; O2SAT 99
[2021-02-18] MEDS: Buprenorphine HCl 2 MG TAB.SUBL SL ×3 (06:23→21:27)
[2021-02-18] MEDS: Thiamine Hydrochloride 100 MG Tablet PO (08:09)
[2021-02-18] MEDS: Folic Acid 1 MG Tablet PO (08:09)
[2021-02-18] MEDS: cloNIDine HCl 0.1 MG Tablet PO ×2 (08:10→21:27)
[2021-02-18] MEDS: Pantoprazole Sodium 40 MG Tablet PO (08:10)
[2021-02-18] MEDS: Gabapentin 300 MG Capsule PO ×2 (08:15→17:42)
[2021-02-18 10:00] VITALS: BP 130/85; PULSE 75; RESP 16; TEMP 36.7; O2SAT 99
--- NOTE | 2021-02-18 13:49 | PCM.PN.HOSP ---
Subjective Subjective Patient states he is feeling okay today. Has no acute needs. States the medication seems to be working for his withdrawal. Objective Data Objective Data Vital Signs: Vital Signs Temp Pulse Resp BP Pulse Ox 98.1 F 75 16 130/85 H 99 02/18/21 10:00 02/18/21 10:00 02/18/21 10:00 02/18/21 10:00 02/18/21 10:00 Oxygen Delivery Method Room Air Weight: 82.9 kg Body Mass Index (BMI) 25.4 Intake & Output: Intake and Output for Last 24 Hours 02/16/21 02/17/21 02/18/21 23:59 23:59 23:59 Intake Total 500 / 500 500 / 500 Balance 500 / 500 500 / 500 Lab / Micro Data Result Diagrams: 02/17/21 10:33 02/17/21 10:33 Physical Exam Const alert and oriented x3 Constitutional Narrative: Middle-aged white male lying in bed, appears comfortable but mildly anxious, nontoxic General Appearance: cooperative HEENT normocephalic, head/scalp atraumatic and moist oral mucous membranes Head and Scalp: normocephalic Eyes EOMs intact bilaterally Neck Neck Narrative: Trachea midline Resp normal respiratory effort, no retractions, no use of accessory muscles and clear to auscultation bilaterally Resp Narrative: Diminished but clear Auscultation: Negative for crackles, rales, rhonchi or wheezes Cardio regular rate, regular rhythm, S1 normal heart sound, S2 normal heart sound, no murmurs, no rub, no gallops, no clicks and no JVD GI normal to inspection, nondistended, normoactive bowel sounds, soft to palpation, non-tender and non-distended Extremity normal to inspection and no clubbing, cyanosis or edema Neuro oriented x3 Neuro Narrative: Mildly tremulous Sensorium / Orientation: awake and alert Assessment & Plan Assessment/Plan (1) Alcohol use disorder: (2) Opioid abuse: (3) Opiate withdrawal: (4) Erythrocytosis: (5) Tobacco abuse: PLAN: Acute opiate and alcohol withdrawal -Last alcoholic drink was evening of 02/16/2021 8 PM -Last fentanyl use was 3 days prior to admission -Continue Subutex taper and supportive medications per order set -Continue phenobarb taper and supportive medications per order set -Addiction consultation for 180 Erythrocytosis -CBC not drawn will repeat in a.m. -Suspect related to some dehydration although renal function is normal -Patient is also a smoker Hypertension -Continue clonidine GERD -Continue Protonix Low testosterone -Restart supplemental testosterone upon discharge Depression/anxiety -Continue doxepin at at bedtime Tobacco abuse -14 mcg nicotine patch -Recommend cessation DVT prophylaxis -Early ambulation protocol CODE STATUS -Full code Charges/Coding Visit Charges Inpatient E&M: 41931 Subs Hosp L2
[2021-02-18] MEDS: hydrOXYzine PAM 25 MG Capsule 50 MG PO (15:10)
[2021-02-18 16:00] VITALS: BP 131/88; PULSE 83; RESP 16; TEMP 36.7; O2SAT 99
[2021-02-18 20:14] VITALS: BP 151/99; PULSE 86; RESP 18; TEMP 37.1; O2SAT 97
[2021-02-18] MEDS: DOXEPIN HCL 50 MG CAPSULE PO (21:28)
[2021-02-19] MEDS: Phenobarbital 32.4 MG Tablet 64.8 MG PO ×6 (02:11→21:49)
[2021-02-19 02:13] VITALS: BP 147/93; PULSE 80; RESP 16; TEMP 36.4; O2SAT 97
[2021-02-19] MEDS: Gabapentin 300 MG Capsule PO ×2 (02:19→21:54)
[2021-02-19 05:34] LABS: Absolute Neutrophil Count 4.9 X10^3/uL (2.0-7.7); Basophil# 0.06 X10^3/uL; Basophil% 0.6 % (0-1); Eosinophil# 0.34 X10^3/uL; Eosinophils% 3.4 % (0-5); Hematocrit 49.2 % (40-54); Lymphocyte % 36.5 % (19-41); Mean Corp Hgb Conc 34.6 g/dL (32-36); Mean Corpuscular Hgb 29.6 pg (27.0-32.0); Mean Corpuscular Volume 85.6 fL (80-94); Monocyte# 0.93 X10^3/uL; Monocyte% 9.4 % (0-10); NRBC Flagged by Analyzer 0 % (0-5); Neutrophil # 4.87 X10^3/uL (2.7-7.7); Neutrophil % 49.5 % (47-70); Platelet Count 263 K/mm3 (150-450); RBC Distribution Width SD 47.1 fl (35.1-43.9); Red Blood Count 5.75 M/mm3 (4.6-6.2); White Blood Count 9.9 K/mm3 (4.4-11.0)
[2021-02-19] MEDS: Buprenorphine HCl 2 MG TAB.SUBL SL ×2 (05:46→14:08)
[2021-02-19] MEDS: Pantoprazole Sodium 40 MG Tablet PO (07:43)
[2021-02-19] MEDS: cloNIDine HCl 0.1 MG Tablet PO ×2 (07:43→21:53)
[2021-02-19] MEDS: Thiamine Hydrochloride 100 MG Tablet PO (07:43)
[2021-02-19] MEDS: Folic Acid 1 MG Tablet PO (07:45)
[2021-02-19] MEDS: hydrOXYzine PAM 25 MG Capsule 50 MG PO ×2 (07:47→21:54)
[2021-02-19 08:08] VITALS: BP 146/90; PULSE 73; RESP 16; TEMP 36.6; O2SAT 99
--- NOTE | 2021-02-19 09:55 | PCM.PN.HOSP ---
Subjective Subjective Patient states he is feeling okay. No significant signs of withdrawal at this time. States his medications are working well for him. Is asking if he can stay 24 hours after the completion of his Suboxone taper to make sure he feels okay. Objective Data Objective Data Vital Signs: Vital Signs Temp Pulse Resp BP Pulse Ox 97.8 F 73 16 146/90 H 99 02/19/21 08:08 02/19/21 08:08 02/19/21 08:08 02/19/21 08:08 02/19/21 08:08 Oxygen Delivery Method Room Air Weight: 82.9 kg Body Mass Index (BMI) 25.4 Intake & Output: Intake and Output for Last 24 Hours 02/17/21 02/18/21 02/19/21 23:59 23:59 23:59 Intake Total 500 / 500 500 / 500 Balance 500 / 500 500 / 500 Lab / Micro Data Result Diagrams: 02/19/21 05:28 02/17/21 10:33 Labs: Laboratory Results - last 24 hr 02/19/21 05:28: WBC 9.9, RBC 5.75, Hgb 17.0 H, Hct 49.2, MCV 85.6, MCH 29.6, MCHC 34.6, RDW Std Deviation 47.1 H, RDW Coeff of Mayte 15.0 H, Plt Count 263, MPV 9.0, Immature Gran % (Auto) 0.600, Neut % (Auto) 49.5, Lymph % (Auto) 36.5, [place] % (Auto) 9.4, Eos % (Auto) 3.4, Baso % (Auto) 0.6, Absolute Neuts (auto) 4.9, Absolute Lymphs (auto) 3.60, Nucleated RBC % 0 Physical Exam Const alert, oriented x3 and no apparent distress Constitutional Narrative: Middle-aged white male lying in bed, appears comfortable, nontoxic, no tremor or signs of anxiety, watching television General Appearance: cooperative Exam Limitations: no limitations HEENT normocephalic, head/scalp atraumatic and moist oral mucous membranes Head and Scalp: normocephalic Resp normal respiratory effort, no retractions, no use of accessory muscles and clear to auscultation bilaterally Resp Narrative: Diminished but clear Auscultation: Negative for crackles, rales, rhonchi or wheezes Cardio regular rate, regular rhythm, S1 normal heart sound, S2 normal heart sound, no murmurs, no rub, no gallops, no clicks and no JVD GI normal to inspection, nondistended, normoactive bowel sounds, soft to palpation, non-tender and non-distended Extremity normal to inspection, full ROM and no clubbing, cyanosis or edema Neuro oriented x3 Neuro Narrative: Mildly tremulous Sensorium / Orientation: awake and alert Assessment & Plan Assessment/Plan (1) Alcohol use disorder: (2) Opioid abuse: (3) Opiate withdrawal: (4) Erythrocytosis: (5) Tobacco abuse: PLAN: Acute opiate and alcohol withdrawal -Last alcoholic drink was evening of 02/16/2021 8 PM -Last fentanyl use was 3 days prior to admission -Continue Subutex taper and supportive medications per order set--> to be completed tomorrow at approximately 2:00 -Continue phenobarb taper and supportive medications per order set -Addiction consultation for 180 -Patient states he has follow-up for [facility] and will follow up with AA for his alcohol addiction at discharge Erythrocytosis -Still mildly elevated at 17 -Would recommend outpatient follow-up for this -Patient is also a smoker Hypertension -Continue clonidine -Start 5 mg of Norvasc GERD -Continue Protonix Low testosterone -Restart supplemental testosterone upon discharge Depression/anxiety -Continue doxepin at at bedtime Tobacco abuse -14 mcg nicotine patch -Recommend cessation DVT prophylaxis -Early ambulation protocol CODE STATUS -Full code
[2021-02-19] MEDS: amLODIPine 5 MG Tablet PO (10:55)
[2021-02-19 14:17] VITALS: BP 135/99; PULSE 81; RESP 16; TEMP 36.6; O2SAT 100
[2021-02-19 20:03] VITALS: BP 145/105; PULSE 97; RESP 16; TEMP 37; O2SAT 98
[2021-02-19] MEDS: DOXEPIN HCL 50 MG CAPSULE PO (21:49)
[2021-02-19] MEDS: traZODone 100 MG Tablet PO (21:56)
[2021-02-20 02:50] VITALS: BP 145/98; PULSE 95; RESP 18; TEMP 36.4; O2SAT 99
[2021-02-20] MEDS: Buprenorphine HCl 2 MG TAB.SUBL SL ×2 (02:57→13:52)
[2021-02-20] MEDS: Phenobarbital 32.4 MG Tablet 64.8 MG PO ×2 (02:57→10:09)
[2021-02-20] MEDS: Folic Acid 1 MG Tablet PO (08:29)
[2021-02-20 08:30] VITALS: BP 135/87; PULSE 78; RESP 18; TEMP 36.7; O2SAT 98
[2021-02-20] MEDS: Thiamine Hydrochloride 100 MG Tablet PO (08:30)
[2021-02-20] MEDS: Pantoprazole Sodium 40 MG Tablet PO (08:30)
[2021-02-20] MEDS: amLODIPine 5 MG Tablet PO (10:09)
--- NOTE | 2021-02-20 10:22 | PCM.DC ---
Discharge Instructions Diet Discharge Diet: Low fat / Low cholesterol and 2000 mg Sodium Diet Activity Discharge Activity: Return to Normal Activity Follow Up Care Test Results: Test results from this visit will be discussed in further detail at your follow-up appointment, if applicable. Discharge Plan Admission Admit Date/Time: 02/17/21 11:41 Primary Reason for Your Visit: Acute opioid and alcohol withdrawal Attending Provider: La Sharp Instructions Additional Instructions / Restrictions: You are strongly advised to continue to avoid use of opioids and alcohol. You are also advised to stop smoking. Follow-up with your outpatient drug rehab program as scheduled. You need to see your primary care doctor within 1 to 2 weeks for repeat blood work to follow-up on elevated hemoglobin levels Discharge Orders/Prescriptions Prescriptions: New thiamine HCl (vitamin B1) [Vitamin B-1] 100 mg Tablet 100 mg PO DAILYCM 30 Days Qty: 30 RF: 0 amlodipine 5 mg Tablet 5 mg PO DAILY 30 Days Qty: 30 RF: 0 folic acid 1 mg Tablet 1 mg PO DAILY@0800 Qty: 30 RF: 0 Continued pantoprazole 40 MG tablet 40 mg PO DAILY RF: 0 testosterone enanthate 200 MG/ML oil 225 mg IM QWEEK RF: 0 doxepin 50 MG capsule 50 mg PO QHS RF: 0 gabapentin 600 MG tablet 600 mg PO 4X/DAY RF: 0 clonidine HCl 0.1 mg tablet 0.1 mg PO DAILY RF: 0 Discontinued hydroxyzine pamoate 50 mg capsule RF: 0 Referrals / Follow Up: SHELDON WESTBROOK [Other] - Within 2 Weeks [facility],Out of [NON-STAFF] - Disposition Disposition (needs filled in before D/C Order can be placed): Home, Self Care
--- NOTE | 2021-02-20 10:23 | NURSING ---
message left with pt mother at his request to call his father to come pick him up at main entrance of hospital at 1430
--- NOTE | 2021-02-20 10:28 | DS.PCM_ITS ---
Providers Date of Admission: 02/17/21 Date of Discharge: 02/20/21 Primary Care Physician: SHELDON WESTBROOK Reason For Visit: OPIATE/ETOH WITHDRAWAL Diagnosis Discharge Diagnosis (1) Alcohol use disorder: Status: Chronic (2) Opioid abuse: Status: Chronic Code(s): F11.10 - Opioid abuse, uncomplicated (3) Opiate withdrawal: Status: Acute Code(s): F11.23 - Opioid dependence with withdrawal (4) Erythrocytosis: Status: Acute Code(s): D75.1 - Secondary polycythemia (5) Tobacco abuse: Status: Acute Code(s): Z72.0 - Tobacco use Medications at Discharge Home Medications pantoprazole 40 mg PO DAILY 05/12/20 testosterone enanthate 225 mg IM QWEEK 06/18/20 doxepin 50 mg PO QHS 07/25/20 gabapentin 600 mg PO 4X/DAY 07/25/20 clonidine HCl 0.1 mg PO DAILY 02/17/21 amlodipine 5 mg PO DAILY 30 Days #30 tab 02/20/21 folic acid 1 mg PO DAILY@0800 #30 tab 02/20/21 thiamine HCl (vitamin B1) [Vitamin B-1] 100 mg PO DAILYCM 30 Days #30 tab 02/20/21 Hospital Course Operations None Procedures None Summary of Care Provided Minutes Spent on Discharge: 25 Hospital Course: 50-year-old male with past medical history of polysubstance use disorder who comes in for medical stabilization for opioid and alcohol withdrawal. Patient admits to using 6-12 12 tall boys of beer a day and a pint of whiskey. He has also been using up to 1 g of fentanyl a day. His last use of fentanyl was 3 days ago. His last alcohol use was the night of admission. He was admitted to the [facility] floor and managed on the alcohol and opiate withdrawal protocol with improvement. Patient was seen by the nursing home social worker with 180. [facility] will follow up for a residential plan. He was also noted to have elevated hemoglobin for which he will follow up in the outpatient. Physical Exam Narrative Physical exam: General: Alert, Oriented x3, Cooperative, No apparent distress, Well developed HEENT: Atraumatic Oral: Moist Mucosa Neck: Supple Lungs: Clear to auscultation Cardiovascular: HS I+II, regular, no murmurs Abdomen: Bowel Sounds Present, Soft, Non Tender Extremities: No edema Skin: No rashes, No breakdown Neurological: Grossly intact Psych/Mental Status: Appropriate Weight / BMI Weight Weight: 82.9 kg Body Mass Index (BMI) 25.4 ABG / Lab / Microbiology Data Result Diagrams: 02/19/21 05:28 02/17/21 10:33 D/C Instructions Discharge Diet: Low fat / Low cholesterol and 2000 mg Sodium Diet Meaningful Use Info Meaningful Use Diagnoses (Choose all that apply): None applicable Discharge Plan Admission Admit Date/Time: 02/17/21 11:41 Primary Reason for Your Visit: Acute opioid and alcohol withdrawal Attending Provider: La Sharp Instructions Additional Instructions / Restrictions: You are strongly advised to continue to avoid use of opioids and alcohol. You are also advised to stop smoking. Follow-up with your outpatient drug rehab program as scheduled. You need to see your primary care doctor within 1 to 2 weeks for repeat blood work to follow-up on elevated hemoglobin levels Discharge Orders/Prescriptions Prescriptions: New thiamine HCl (vitamin B1) [Vitamin B-1] 100 mg Tablet 100 mg PO DAILYCM 30 Days Qty: 30 RF: 0 amlodipine 5 mg Tablet 5 mg PO DAILY 30 Days Qty: 30 RF: 0 folic acid 1 mg Tablet 1 mg PO DAILY@0800 Qty: 30 RF: 0 Continued pantoprazole 40 MG tablet 40 mg PO DAILY RF: 0 testosterone enanthate 200 MG/ML oil 225 mg IM QWEEK RF: 0 doxepin 50 MG capsule 50 mg PO QHS RF: 0 gabapentin 600 MG tablet 600 mg PO 4X/DAY RF: 0 clonidine HCl 0.1 mg tablet 0.1 mg PO DAILY RF: 0 Discontinued hydroxyzine pamoate 50 mg capsule RF: 0 Referrals / Follow Up: SHELDON WESTBROOK [Other] - Within 2 Weeks [facility] Doctor,Out of [NON-STAFF] - Disposition Disposition (needs filled in before D/C Order can be placed): Home, Self Care Charges/Coding Visit Charges Inpatient E&M: 23179 Disch Hosp
[2021-02-20] MEDS: cloNIDine HCl 0.1 MG Tablet PO (11:59)
[2021-02-20 13:05] LABS: Pathologist Review Reviewed
[2021-02-20 13:59] VITALS: BP 131/67; PULSE 86; RESP 18; TEMP 36.7; O2SAT 95
== END 2021-02-20 14:44 | disposition home or self-care (01) | DRG 773 ==
LOC: ED 11:00 → MS3 12:01
PROVIDERS: Admitting Provider Internal Medicine; Emergency Provider Emergency Medicine; Visit Provider Internal Medicine
DX: F10.239 Alcohol dependence with withdrawal, unspecified (principal); F11.23 Opioid dependence with withdrawal; F17.210 Nicotine dependence, cigarettes, uncomplicated; D75.1 Secondary polycythemia; I10 Essential (primary) hypertension; K21.9 Gastro-esophageal reflux disease without esophagitis; F32.9 Major depressive disorder, single episode, unspecified; F41.9 Anxiety disorder, unspecified; Y90.9 Presence of alcohol in blood, level not specified; Z79.899 Other long term (current) drug therapy
CPT/HCPCS: 36415; 80053; 80307; 82077; 85025; 93005; 99218; 99283; 99406; G0378

== ENCOUNTER 2021-05-29 13:50 | Inpatient (IN) | payer MEDICAID, SELFPAY ==
[2021-05-29] VITALS (9 sets, daily range): BP systolic 138–200; BP diastolic 102–127; PULSE 88–120; RESP 16–20; TEMP 36.4–37; O2SAT 95–98; BMI 27.1; BMI 27.3
--- NOTE | 2021-05-29 14:23 | EDS_ITS ---
HPI History of Present Illness Chief Complaint: Substance Abuse Informant: patient Onset/Context/Timing Onset: Today Context: Gradual Onset Timing: Continuous Quality: Shaking Location: Generalized Worsened by: Nothing Relieved by: Nothing Associated Symptoms Associated Symptoms: Positive for diarrhea*, tremor and palpatations; Negative for vomiting*, fever*, rash*, seizure, change in mental status, suicidal ideation and homicidal ideation Narrative Narrative: Patient presents requesting detox from alcohol. Patient states he drinks approximately 6 tall boys and 1/5 of tequila per day. Patient states his last drink was approximately 13 hours prior to arrival. Patient states he feels shaky. Patient denies any seizures. Patient admits to some palpitations and an episode of diarrhea. Patient denies any nausea or vomiting. Patient denies any fevers. Patient denies any rash. Patient denies any suicidal or homicidal ideations. [facility] Medical History Alcohol abuse Alcohol abuse Depression Opioid abuse Substance abuse Home Medications pantoprazole 40 mg PO DAILY 05/12/20 [History Last Taken 07/23/20] testosterone enanthate 225 mg IM QWEEK 06/18/20 [History Last Taken 07/04/20] doxepin 50 mg PO QHS 07/25/20 [History Last Taken 07/18/20] gabapentin 600 mg PO 4X/DAY 07/25/20 [History Last Taken 07/23/20] clonidine HCl 0.1 mg PO DAILY 02/17/21 [History Last Taken Unknown] amlodipine 5 mg PO DAILY 30 Days #30 tab 02/20/21 [Rx Last Taken Unknown] folic acid 1 mg PO DAILY@0800 #30 tab 02/20/21 [Rx Last Taken Unknown] thiamine HCl (vitamin B1) [Vitamin B-1] 100 mg PO DAILYCM 30 Days #30 tab 02/20/21 [Rx Last Taken Unknown] Allergy/AdvReac Type Severity Reaction Status Date / Time No Known Allergies Allergy Verified 05/29/21 13:52 Surgical History History of ankle surgery Social History Smoking Status: Current every day smoker tobacco type: cigarettes alcohol intake: current alcohol intake frequency: 3 or more drinks per day substance use type: opiates ROS ROS ED Constitutional Constitutional ED: Denies chills or fever(s) Eyes Eyes: Reports blurry vision; Denies change in vision ENT ENT ED: Denies rhinorrhea or sore throat Cardiovascular Cardiovascular: Reports palpitations; Denies chest pain Respiratory/Chest Respiratory/Chest: Reports cough; Denies dyspnea Gastrointestinal Gastrointestinal: Reports diarrhea; Denies nausea or vomiting Genitourinary Genitourinary ED: Denies dysuria or hematuria Musculoskeletal Musculoskeletal: Reports back pain and neck pain Integumentary Denies abscess or rash Neurologic Neurologic: Reports headache(s); Denies weakness Allergic/Immunologic Allergic/Immunologic ED: Denies mouth swelling or urticaria EXAM Physical Exam Const Vital Signs: 05/29/21 13:51 05/29/21 14:37 05/29/21 14:46 Temperature 97.6 F L Temperature Source Temporal Pulse Rate 101 H 104 H Respiratory Rate 16 Blood Pressure 159/125 H 200/123 H 183/127 H Blood Pressure Mean 136 148 145 Pulse Ox 98 96 Oxygen Delivery Method Room Air Positive well nourished and well developed General Appearance ED: well developed HEENT Reports moist mucous membranes Neck supple and no JVD Resp normal respiratory effort and clear to auscultation bilaterally Cardio regular rate, regular rhythm and no murmurs GI normal to inspection, nondistended, normoactive bowel sounds and non-tender Palpation: soft Extremity normal to inspection General Extremety ED: Negative for edema or tenderness General Extremity: Negative for edema Neuro oriented x3, CN's II-XII intact bilaterally and no sensory deficits noted Sensorium / Orientation: alert Motor Exam: strength 5/5 throughout Psych mental status grossly normal Skin no rashes or lesions noted MDM MDM MDM Narrative Medical decision making narrative: CBC was within normal limits. Comprehensive metabolic profile was obtained and was essentially within normal limits. Urinalysis does not show any evidence of urinary tract infection. Urine tox screen was negative. Serum alcohol level was 71. Case was discussed with the hospitalist. She will admit the patient to her service. Patient understood and was agreeable with the plan. All questions were answered. Lab Data Attestation: I reviewed the patient's lab results. Labs: Laboratory Results - last 24 hr 05/29/21 05/29/21 05/29/21 14:35 14:35 14:50 WBC 6.6 RBC 5.22 Hgb 16.6 H Hct 46.6 MCV 89.3 MCH 31.8 MCHC 35.6 RDW Std Deviation 53.7 H RDW Coeff of Mayte 16.3 H Plt Count 173 MPV 8.6 Immature Gran % (Auto) 0.300 Neut % (Auto) 63.7 Lymph % (Auto) 22.7 [place] % (Auto) 10.7 H Eos % (Auto) 1.7 Baso % (Auto) 0.9 Absolute Neuts (auto) 4.2 Absolute Lymphs (auto) 1.49 Nucleated RBC % 0 Sodium Potassium Chloride Carbon Dioxide Anion Gap BUN Creatinine Estim Creat Clear Calc Est GFR (MDRD) Af Amer Est GFR (MDRD) Non-Af BUN/Creatinine Ratio Glucose Calcium Total Bilirubin AST ALT Alkaline Phosphatase Total Protein Albumin Globulin Albumin/Globulin Ratio Urine Color Yellow Urine Clarity Sl. Cloudy Urine pH 6.0 Ur Specific [place] 1.010 Urine Protein Negative Urine Glucose (UA) Normal Urine Ketones Negative Urine Occult Blood Negative Urine Nitrite Negative Urine Bilirubin Negative Urine Urobilinogen Normal Ur Leukocyte Esterase Negative Urine RBC 0 SEEN Urine WBC 0 SEEN Ur Squamous Epith Cells 0-5 SEEN Urine Bacteria 0 SEEN Urine Mucus 0 SEEN Urine Opiates Screen NEGATIVE Urine Methadone Screen NEGATIVE Ur Barbiturates Screen NEGATIVE Ur Phencyclidine Scrn NEGATIVE Ur Amphetamines Screen NEGATIVE U Methamphetamin-MDMA NEGATIVE U Benzodiazepines Scrn NEGATIVE Urine Cocaine Screen NEGATIVE U Cannabinoids Screen NEGATIVE Ur Drug Screen Comment Ethyl Alcohol 05/29/21 05/29/21 14:50 14:50 WBC RBC Hgb Hct MCV MCH MCHC RDW Std Deviation RDW Coeff of Mayte Plt Count MPV Immature Gran % (Auto) Neut % (Auto) Lymph % (Auto) [place] % (Auto) Eos % (Auto) Baso % (Auto) Absolute Neuts (auto) Absolute Lymphs (auto) Nucleated RBC % Sodium 140 Potassium 3.6 Chloride 106 Carbon Dioxide 26.0 Anion Gap 8 BUN 10 Creatinine 0.83 Estim Creat Clear Calc 114.66 Est GFR (MDRD) Af Amer 127 Est GFR (MDRD) Non-Af 105 BUN/Creatinine Ratio 12.1 Glucose 83 Calcium 8.3 L Total Bilirubin 0.60 AST 43 H ALT 49 Alkaline Phosphatase 71 Total Protein 7.4 Albumin 3.4 Globulin 4.0 Albumin/Globulin Ratio 0.8 L Urine Color Urine Clarity Urine pH Ur Specific [place] Urine Protein Urine Glucose (UA) Urine Ketones Urine Occult Blood Urine Nitrite Urine Bilirubin Urine Urobilinogen Ur Leukocyte Esterase Urine RBC Urine WBC Ur Squamous Epith Cells Urine Bacteria Urine Mucus Urine Opiates Screen Urine Methadone Screen Ur Barbiturates Screen Ur Phencyclidine Scrn Ur Amphetamines Screen U Methamphetamin-MDMA U Benzodiazepines Scrn Urine Cocaine Screen U Cannabinoids Screen Ur Drug Screen Comment Ethyl Alcohol 71.0 Treatment and Re-Evaluation Vital Sign Attestation:: Vital signs are reviewed prior to admission. Blood pressure is still somewhat elevated at 183/127. The remaining vital signs are within normal limits. Discharge Plan Dx/Rx/DC Orders Clinical Impression: Alcohol withdrawal Disposition Disposition: Acute Care Hospital [facility]
[2021-05-29] MEDS: Acetaminophen 500 MG Tablet 1000 MG PO (14:44)
[2021-05-29] MEDS: cloNIDine HCl 0.1 MG Tablet PO (14:45)
[2021-05-29 14:46] LABS: Bacteria 0 SEEN /hpf (None Seen); Mucous, Urine 0 SEEN /hpf (<or=2+); Red Blood Cells-Urine 0 SEEN /hpf (0-5); White Blood Cells 0 SEEN /hpf (0-5)
[2021-05-29 14:47] LABS: Color, Urine Yellow (Yellow); Glucose, Dipstick Normal (Normal); Ketone-Dipstick Negative (Negative); Leukocyte Esterase-Dipstick Negative /ul (Negative); Nitrite-Dipstick Negative (Negative); Occult Blood-Urine Negative /ul (Negative); Protein-Dipstick Negative (Negative); Urine Bilirubin Dipstick Negative (Negative); Urine Clarity Sl. Cloudy (Clear); Urine Urobilinogen Normal (Normal)
[2021-05-29 14:53] LABS: Squamous Epithelial Cells - UA 0-5 SEEN /hpf (0-5)
[2021-05-29 15:01] LABS: Absolute Lymphocyte Count 1.49 X10^3/uL (0.83-4.51); Absolute Neutrophil Count 4.2 X10^3/uL (2.0-7.7); Basophil# 0.06 X10^3/uL; Basophil% 0.9 % (0-1); Eosinophil# 0.11 X10^3/uL; Eosinophils% 1.7 % (0-5); Hematocrit 46.6 % (40-54); Hemoglobin 16.6 g/dL (13.0-16.5); Lymphocyte # 1.49 X10^3/ul (0.83-4.51); Lymphocyte % 22.7 % (19-41); Mean Corp Hgb Conc 35.6 g/dL (32-36); Mean Corpuscular Hgb 31.8 pg (27.0-32.0); Mean Corpuscular Volume 89.3 fL (80-94); Mean Platelet Vol. 8.6 fl (6.2-12.0); Monocyte% 10.7 % (0-10); NRBC Flagged by Analyzer 0 % (0-5); Neutrophil # 4.17 X10^3/uL (2.7-7.7); Neutrophil % 63.7 % (47-70); Platelet Count 173 K/mm3 (150-450); RBC Distribution Width CV 16.3 % (11.6-14.6); RBC Distribution Width SD 53.7 fl (35.1-43.9); Red Blood Count 5.22 M/mm3 (4.6-6.2); White Blood Count 6.6 K/mm3 (4.4-11.0)
[2021-05-29 15:04] LABS: Amphetamine Urine VISTA NEGATIVE (<1000 ng/mL); Barbiturate Urine VISTA NEGATIVE (< 200 ng/mL); Benzodiazepine Urine VISTA NEGATIVE (< 200 ng/mL); Cocaine Urine VISTA NEGATIVE (< 300 ng/mL); Ecstacy Urine VISTA NEGATIVE (< 500 ng/mL); Methadone Urine VISTA NEGATIVE (< 300 ng/mL); PCP Urine VISTA NEGATIVE (< 25 ng/mL); THC Urine VISTA NEGATIVE (< 50 ng/mL); Vista UDS pH Range 6
[2021-05-29 15:18] LABS: ALB/GLOB Ratio 0.8 RATIO (0.9-2.4); AST(SGOT) 43 U/L (15-37); Alanine Aminotransfer ALT/SGPT 49 U/L (16-61); Albumin, Serum 3.4 g/dL (3.2-5.0); Alkaline Phosphatase 71 U/L (45-117); Anion Gap 8 (5-15); BUN 10 mg/dL (7-18); BUN/Creat Ratio 12.1 RATIO (10-20); Calcium,Total 8.3 mg/dL (8.5-10.1); Chloride 106 mmol/L (98-107); Creatinine, Serum 0.83 mg/dL (0.70-1.30); EST Glomerular Filtration Rate 105 mL/min (>60); Est Glom Filt Rate - Afr Amer 127 mL/min (>60); Estimated Creatinine Clearance 114.66 ml/min; Glucose 83 mg/dL (74-106); Potassium 3.6 mmol/L (3.5-5.1); Protein, Total 7.4 g/dL (6.4-8.2); Sodium Level 140 mmol/L (136-145)
--- NOTE | 2021-05-29 15:34 | HP.PCM.HOS_ITS ---
HPI - General General Date of Admission: 05/29/21 Date of Service: 05/29/21 Chief Complaint: Acute alcohol detox HPI Narrative TRAN CARR, is a 51 M who presented to the emergency department [facility] on 05/29/2021 requesting detox from alcohol. The patient is stating he drinks approximately 6 tall boys and approximately 1/5 of tequila per day. His last drink was approximately 130 this morning. He currently is feeling tremulous and shaky. He also is having some palpitations and he did have an episode of loose stool. He denies any nausea or vomiting. He was admitted here from 02/17/2021 until 02/20/2021 for acute alcohol and opiate detox. The patient states that he has been sober from fentanyl use for 90 days now. He did an inpatient admission in [facility] for detox and then recovery but left recovery early because he caught COVID-19. His vital signs are stable other than elevated blood pressure. His CBC is normal other than some erythrocytosis what appears to be baseline for him. He is a smoker. His CMP is unremarkable. His urine is unremarkable. His tox screen is negative and his serum alcohol level was 71. He'll be admitted to the medical surgical unit for continued detox. [facility] Medical History (Updated 05/29/21 @ 16:[address] Lena Howe, ) Abscess of buttock, right Alcohol abuse Alcohol abuse Depression Erythrocytosis GERD (gastroesophageal reflux disease) Opiate abuse, continuous Opioid abuse Opioid abuse Polysubstance abuse Substance abuse Home Medications testosterone enanthate 225 mg IM QWEEK 06/18/20 [History Last Taken 05/26/21] doxepin 50 mg PO QHS 07/25/20 [History Last Taken 1 Week Ago ~05/22/21] gabapentin 600 mg PO 4X/DAY 07/25/20 [History Last Taken 05/28/21] clonidine HCl 0.1 mg PO DAILY 02/17/21 [History Last Taken 1 Week Ago ~05/22/21] amlodipine 5 mg PO DAILY 05/29/21 [History Last Taken Unknown] omeprazole 20 mg PO DAILY 05/29/21 [History Last Taken 05/29/21] Allergy/AdvReac Type Severity Reaction Status Date / Time No Known Allergies Allergy Verified 05/29/21 13:52 no significant family history Surgical History History of ankle surgery Social History (Updated 05/29/21 @ 15:[address] Lena Howe DO) Smoking Status: Current every day smoker tobacco type: cigarettes alcohol intake: current alcohol intake frequency: 3 or more drinks per day substance use type: former substance user Date of last use: 02/16/2021-opiates ROS Constitutional Constitutional: Denies anorexia, change in weight, chills, fatigue, fever(s), malaise, night sweats, weakness or other Eyes Eyes: Denies blurry vision, change in eye color, change in vision, discharge from eye(s), double vision, erythema, eye pain, loss of vision or other ENT HEENT: Denies abnormal hearing, dysphagia, ear pain, epistaxis, headache(s), hearing loss, nasal congestion, nasal discharge, post nasal drip, sinus pressure, sore throat or other Cardiovascular Cardiovascular: Reports palpitations; Denies chest pain, claudication, dyspnea on exertion, edema, lightheadedness, orthopnea, paroxysmal nocturnal dyspnea, rapid heart rate, syncope or other Respiratory/Chest Respiratory/Chest: Denies cough, dyspnea, excessive phlegm production, h emoptysis, productive cough, shortness of breath at rest, shortness of breath with exertion, wheezing or other Gastrointestinal Gastrointestinal: Reports loose stools; Denies abdominal pain, coffee ground emesis, constipation, diarrhea, dyspepsia, hematemesis, hematochezia, melena, nausea, vomiting or other Genitourinary Genitourinary: Denies burning urination, difficulty urinating, dysuria, hematuria, nocturia, urinary frequency, urinary hesitancy, urinary incontinence, urinary urgency or other Musculoskeletal Musculoskeletal: Denies arthralgias, back pain, joint pain, joint stiffness, joint swelling, myalgias, neck pain or other Neurologic Neurologic: Reports tremor(s); Denies abnormal gait, abnormal speech, confusion, disequilibrium, dizziness, focal weakness, headache(s), numbness, paresthesias, seizure-like activity, seizures, syncope, tingling or other Psychiatric Psychiatric: Reports anxiety and depression; Denies homicidal ideation, suicidal ideation or other Endocrine Endocrinology: Denies change in body appearance, cold intolerance, excessive sweating, heat intolerance, polydipsia, polyuria or other Hematologic/Lymphatic Hematologic/Lymphatic: Denies anemia, easy bleeding, easy bruising, lymphadenopathy or other Allergic/Immunologic Allergic/Immunologic: Denies rhinitis, hives, eczemia, asthma or other Vital Signs Vital Signs Vital Signs: 05/29/21 13:51 05/29/21 14:37 05/29/21 14:46 Temperature 97.6 F L Temperature Source Temporal Pulse Rate 101 H 104 H Respiratory Rate 16 Blood Pressure 159/125 H 200/123 H 183/127 H Blood Pressure Mean 136 148 145 Pulse Ox 98 96 Oxygen Delivery Method Room Air Weight Weight: 88.451 kg Body Mass Index (BMI) 27.1 Physical Exam Const alert, oriented x3, no apparent distress and average body habitus Constitutional Narrative: Upper middle-aged white male sitting up in bed, on his cell phone looking at [employer], nontoxic, appears comfortable General Appearance: cooperative HEENT normocephalic, head/scalp atraumatic, hearing grossly normal bilaterally and moist oral mucous membranes Resp normal respiratory effort, no retractions, no use of accessory muscles and clear to auscultation bilaterally Resp Narrative: Diminished but clear Auscultation: Negative for crackles, rales, rhonchi or wheezes Cardio regular rate, regular rhythm, S1 normal heart sound, S2 normal heart sound, no murmurs, no rub, no gallops, no clicks and no JVD GI normal to inspection, nondistended, normoactive bowel sounds, soft to palpation, non-tender and non-distended Extremity normal to inspection and no clubbing, cyanosis or edema Peripheral Pulses: Yes pulses 2+ throughout Skin no rashes or lesions noted, no wounds, skin turgor normal, no jaundice, no petechiae and no mottling Skin Narrative: Multiple tattoos Neuro oriented x3, CN's II-XII intact bilaterally, moves all extremities and no focal motor deficits Sensorium / Orientation: awake, alert and oriented to person Motor Exam: strength 5/5 throughout Psych affect normal Results Lab / Micro Data Attestation: I reviewed the patient's lab results. Result Diagrams: 05/29/21 14:50 05/29/21 14:50 Labs: Laboratory Results - last 24 hr 05/29/21 14:35: Urine Color Yellow, Urine Clarity Sl. Cloudy, Urine pH 6.0, Ur Specific [place] 1.010, Urine Protein Negative, Urine Glucose (UA) Normal, Urine Ketones Negative, Urine Occult Blood Negative, Urine Nitrite Negative, Urine Bilirubin Negative, Urine Urobilinogen Normal, Ur Leukocyte Esterase Negative, Urine RBC 0 SEEN, Urine WBC 0 SEEN, Ur Squamous Epith Cells 0-5 SEEN, Urine Bacteria 0 SEEN, Urine Mucus 0 SEEN 05/29/21 14:35: Urine Opiates Screen NEGATIVE, Urine Methadone Screen NEGATIVE, Ur Barbiturates Screen NEGATIVE, Ur Phencyclidine Scrn NEGATIVE, Ur Amphetamines Screen NEGATIVE, U Methamphetamin-MDMA NEGATIVE, U Benzodiazepines Scrn NEGATIVE , Urine Cocaine Screen NEGATIVE, U Cannabinoids Screen NEGATIVE, Ur Drug Screen Comment 05/29/21 14:50: WBC 6.6, RBC 5.22, Hgb 16.6 H, Hct 46.6, MCV 89.3, MCH 31.8, MCHC 35.6, RDW Std Deviation 53.7 H, RDW Coeff of Mayte 16.3 H, Plt Count 173, MPV 8.6, Immature Gran % (Auto) 0.300, Neut % (Auto) 63.7, Lymph % (Auto) 22.7, Carbon % (Auto) 10.7 H, Eos % (Auto) 1.7, Baso % (Auto) 0.9, Absolute Neuts (auto) 4.2, Absolute Lymphs (auto) 1.49, Nucleated RBC % 0 05/29/21 14:50: Sodium 140, Potassium 3.6, Chloride 106, Carbon Dioxide 26.0, Anion Gap 8, BUN 10, Creatinine 0.83, Estim Creat Clear Calc 114.66, Est GFR (MDRD) Af Amer 127, Est GFR (MDRD) Non-Af 105, BUN/Creatinine Ratio 12.1, Glucose 83, Calcium 8.3 L, Total Bilirubin 0.60, AST 43 H, ALT 49, Alkaline Phosphatase 71, Total Protein 7.4, Albumin 3.4, Globulin 4.0, Albumin/Globulin Ratio 0.8 L 05/29/21 14:50: Ethyl Alcohol 71.0 Assessment & Plan Assessment/Plan (1) Alcohol use disorder: (2) Tobacco abuse: (3) Alcohol withdrawal: (4) Alcohol abuse: PLAN: Acute alcohol withdrawal -Last drink was a approximately 13 hours prior to his arrival here -Start phenobarb taper and supportive medications per order set -Thiamine and folate -Addiction consultation for 180 Erythrocytosis -Elevation is chronic -Patient is likely dehydrated -Repeat CBC in a.m. -Patient is also a smoker Hypertension -Continue clonidine -Continue amlodipine GERD -Continue Protonix Low testosterone -Restart supplemental testosterone upon discharge Depression/anxiety -Continue doxepin at at bedtime History of opiate abuse -Patient has gone through rehabilitation program and has been sober for 90 days -Last use was 02/16/2021 -Opiate of choice was fentanyl Tobacco abuse -14 mcg nicotine patch if patient desires -Recommend cessation DVT prophylaxis -Early ambulation protocol CODE STATUS -Full code Charges/Coding Visit Charges Inpatient E&M: 74498 Init Hosp L2
--- NOTE | 2021-05-29 16:15 | CM.ED ---
SOCIAL WORK Referral Source: Self-referral Reason for Consult: Substance abuse-requesting detox from alcohol Met with patient in room. Patient reports has been through detox here before and relapsed. Patient states last drink was around 1-1:30am. Patient to complete [facility] agreement with nursing. Treatment Navigator notified of admission to [facility]. Plan: LIDYA Alexander MSW, [employer]
[2021-05-29] MEDS: Dicyclomine 10 MG Capsule 20 MG PO (17:30)
[2021-05-29] MEDS: Gabapentin 600 MG Tablet PO ×2 (17:30→22:00)
[2021-05-29] MEDS: 0.9% Normal Saline 1,000 ML 100 ML IV (17:30)
[2021-05-29] MEDS: Phenobarbital 32.4 MG Tablet PO ×2 (17:30→21:59)
[2021-05-29] MEDS: Ondansetron 8 MG Tablet PO (17:30)
[2021-05-29] MEDS: DOXEPIN HCL 50 MG CAPSULE PO (22:00)
[2021-05-29] MEDS: Acetaminophen 325 MG Tablet 650 MG PO (22:27)
[2021-05-29] MEDS: LORazepam 1 MG Tablet 2 MG PO (22:28)
[2021-05-30] VITALS (7 sets, daily range): BP systolic 136–163; BP diastolic 96–115; PULSE 76–92; RESP 18–20; TEMP 36.4–36.9; O2SAT 95–99; BMI 27.3
[2021-05-30] MEDS: Phenobarbital 32.4 MG Tablet PO ×6 (02:15→22:36)
[2021-05-30] MEDS: Ondansetron 8 MG Tablet PO ×2 (02:15→20:20)
[2021-05-30] MEDS: Dicyclomine 10 MG Capsule 20 MG PO (02:15)
[2021-05-30] MEDS: hydrALAZINE 20 MG/ML Vial 10 MG IV (03:08)
[2021-05-30] MEDS: 0.9% Saline Lock 10 ML Syringe IV ×4 (03:12→19:13)
[2021-05-30 05:26] LABS: Absolute Lymphocyte Count 2.56 X10^3/uL (0.83-4.51); Absolute Neutrophil Count 4.4 X10^3/uL (2.0-7.7); Basophil# 0.06 X10^3/uL; Basophil% 0.7 % (0-1); Eosinophil# 0.16 X10^3/uL; Hematocrit 47.1 % (40-54); Hemoglobin 16.4 g/dL (13.0-16.5); Lymphocyte # 2.56 X10^3/ul (0.83-4.51); Lymphocyte % 31.6 % (19-41); Mean Corp Hgb Conc 34.8 g/dL (32-36); Mean Corpuscular Hgb 31.5 pg (27.0-32.0); Mean Corpuscular Volume 90.4 fL (80-94); Mean Platelet Vol. 9.1 fl (6.2-12.0); Monocyte# 0.94 X10^3/uL; Monocyte% 11.6 % (0-10); NRBC Flagged by Analyzer 0 % (0-5); Neutrophil # 4.35 X10^3/uL (2.7-7.7); Neutrophil % 53.9 % (47-70); Platelet Count 171 K/mm3 (150-450); RBC Distribution Width CV 15.9 % (11.6-14.6); RBC Distribution Width SD 52.5 fl (35.1-43.9); Red Blood Count 5.21 M/mm3 (4.6-6.2); White Blood Count 8.1 K/mm3 (4.4-11.0)
[2021-05-30] MEDS: hydrOXYzine PAM 25 MG Capsule 50 MG PO (06:17)
[2021-05-30] MEDS: Acetaminophen 325 MG Tablet 650 MG PO ×2 (06:17→13:56)
[2021-05-30] MEDS: amLODIPine 5 MG Tablet PO ×2 (07:31→12:56)
[2021-05-30] MEDS: cloNIDine HCl 0.1 MG Tablet PO (07:32)
[2021-05-30] MEDS: Pantoprazole Sodium 40 MG Tablet PO (07:32)
[2021-05-30] MEDS: Folic Acid 1 MG Tablet PO (07:32)
[2021-05-30] MEDS: Thiamine Hydrochloride 100 MG Tablet PO (07:32)
[2021-05-30] MEDS: Gabapentin 600 MG Tablet PO ×4 (09:48→22:36)
--- NOTE | 2021-05-30 11:33 | PCM.PN.HOSP ---
Subjective Subjective Follow-up on acute alcohol withdrawal: Patient was seen and examined. He denied any new complaints. No acute events overnight. Objective Data Objective Data Vital Signs: Vital Signs Temp Pulse Resp BP Pulse Ox 97.5 F L 76 20 H 155/115 H 97 05/30/21 09:40 05/30/21 09:40 05/30/21 09:40 05/30/21 09:40 05/30/21 09:40 Oxygen Delivery Method Room Air Weight: 88.45 kg Body Mass Index (BMI) 27.3 Intake & Output: Intake and Output for Last 24 Hours 05/28/21 05/29/21 05/30/21 23:59 23:59 23:59 Intake Total 1999 Balance 1999 Lab / Micro Data Result Diagrams: 05/30/21 04:46 05/29/21 14:50 Labs: Laboratory Results - last 24 hr 05/29/21 14:35: Urine Color Yellow, Urine Clarity Sl. Cloudy, Urine pH 6.0, Ur Specific [place] 1.010, Urine Protein Negative, Urine Glucose (UA) Normal, Urine Ketones Negative, Urine Occult Blood Negative, Urine Nitrite Negative, Urine Bilirubin Negative, Urine Urobilinogen Normal, Ur Leukocyte Esterase Negative, Urine RBC 0 SEEN, Urine WBC 0 SEEN, Ur Squamous Epith Cells 0-5 SEEN, Urine Bacteria 0 SEEN, Urine Mucus 0 SEEN 05/29/21 14:35: Urine Opiates Screen NEGATIVE, Urine Methadone Screen NEGATIVE, Ur Barbiturates Screen NEGATIVE, Ur Phencyclidine Scrn NEGATIVE, Ur Amphetamines Screen NEGATIVE, U Methamphetamin-MDMA NEGATIVE, U Benzodiazepines Scrn NEGATIVE, Urine Cocaine Screen NEGATIVE, U Cannabinoids Screen NEGATIVE, Ur Drug Screen Comment 05/29/21 14:50: WBC 6.6, RBC 5.22, Hgb 16.6 H, Hct 46.6, MCV 89.3, MCH 31.8, MCHC 35.6, RDW Std Deviation 53.7 H, RDW Coeff of Mayte 16.3 H, Plt Count 173, MPV 8.6, Immature Gran % (Auto) 0.300, Neut % (Auto) 63.7, Lymph % (Auto) 22.7, [place] % (Auto) 10.7 H, Eos % (Auto) 1.7, Baso % (Auto) 0.9, Absolute Neuts (auto) 4.2, Absolute Lymphs (auto) 1.49, Nucleated RBC % 0 05/29/21 14:50: Sodium 140, Potassium 3.6, Chloride 106, Carbon Dioxide 26.0, Anion Gap 8, BUN 10, Creatinine 0.83, Estim Creat Clear Calc 114.66, Est GFR (MDRD) Af Amer 127, Est GFR (MDRD) Non-Af 105, BUN/Creatinine Ratio 12.1, Glucose 83, Calcium 8.3 L, Total Bilirubin 0.60, AST 43 H, ALT 49, Alkaline Phosphatase 71, Total Protein 7.4, Albumin 3.4, Globulin 4.0, Albumin/Globulin Ratio 0.8 L 05/29/21 14:50: Ethyl Alcohol 71.0 05/30/21 04:46: WBC 8.1, RBC 5.21, Hgb 16.4, Hct 47.1, MCV 90.4, MCH 31.5, MCHC 34.8, RDW Std Deviation 52.5 H, RDW Coeff of Mayte 15.9 H, Plt Count 171, MPV 9.1, Immature Gran % (Auto) 0.200, Neut % (Auto) 53.9, Lymph % (Auto) 31.6, [place] % (Auto) 11.6 H, Eos % (Auto) 2.0, Baso % (Auto) 0.7, Absolute Neuts (auto) 4.4, Absolute Lymphs (auto) 2.56, Nucleated RBC % 0 Physical Exam Narrative Physical exam: General: Alert, Oriented x3, Cooperative, No apparent distress, Well developed, multiple tattoos on the body HEENT: Atraumatic Oral: Moist Mucosa Neck: Supple Lungs: Clear to auscultation Cardiovascular: HS I+II, regular, no murmurs Abdomen: Bowel Sounds Present, Soft, Non Tender Extremities: No edema Assessment & Plan Assessment/Plan (1) Alcohol use disorder: (2) Tobacco abuse: (3) Alcohol withdrawal: QUALIFIERS: Complication of substance-induced condition: uncomplicated Qualified Code(s): F10.230 - Alcohol dependence with withdrawal, uncomplicated (4) Alcohol abuse: PLAN: 1. Acute alcohol withdrawal, improving, continue phenobarbital withdrawal protocol 2. Hypertension, uncontrolled, Will increase amlodipine to 10 mg daily, continue clonidine 0.1 mg daily 3. Erythrocytosis, resolved 4. Rest of his chronic medical conditions including GERD, low testosterone, anxiety/depression remain stable for now Home meds reviewed Charges/Coding Visit Charges Inpatient E&M: 63096 Subs Hosp L2
--- NOTE | 2021-05-30 13:19 | ADDICTION ---
This process description writer met with PT to conduct ASAM, MSE, AUDIT assessments and to plan for d/c. PT A+Ox4 and participated actively. All assessments completed, faxed to [facility] and placed in PT's chart. PT plans to f/u with individual counselor at [facility] for follow-up counseling services. PT did not indicate a need for transportation post d/c from [facility].
[2021-05-30] MEDS: LORazepam 1 MG Tablet 2 MG PO (20:20)
[2021-05-30] MEDS: DOXEPIN HCL 50 MG CAPSULE PO (22:36)
[2021-05-31] MEDS: Phenobarbital 32.4 MG Tablet PO ×6 (02:11→21:55)
[2021-05-31 02:18] VITALS: BP 140/100; PULSE 95; RESP 16; TEMP 36.4; O2SAT 96
[2021-05-31 08:13] VITALS: BP 153/115; PULSE 92; RESP 16; TEMP 36.7; O2SAT 97
[2021-05-31] MEDS: Thiamine Hydrochloride 100 MG Tablet PO (08:20)
[2021-05-31] MEDS: hydrOXYzine PAM 25 MG Capsule 50 MG PO (08:20)
[2021-05-31] MEDS: cloNIDine HCl 0.1 MG Tablet PO (08:20)
[2021-05-31] MEDS: Folic Acid 1 MG Tablet PO (08:20)
[2021-05-31] MEDS: amLODIPine 10 MG Tablet PO (10:35)
[2021-05-31] MEDS: Gabapentin 600 MG Tablet PO ×4 (10:35→21:55)
[2021-05-31] MEDS: Pantoprazole Sodium 40 MG Tablet PO (10:35)
[2021-05-31 14:13] VITALS: BP 139/103; PULSE 90; RESP 16; TEMP 36.6; O2SAT 98
--- NOTE | 2021-05-31 14:58 | PCM.PN.HOSP ---
Subjective Subjective Follow-up on acute alcohol withdrawal: Patient seen and examined. No new complaints. No acute events. Objective Data Objective Data Vital Signs: Vital Signs Temp Pulse Resp BP Pulse Ox 97.9 F 90 16 139/103 H 98 05/31/21 14:13 05/31/21 14:13 05/31/21 14:13 05/31/21 14:13 05/31/21 14:13 Oxygen Delivery Method Room Air Weight: 88.451 kg Body Mass Index (BMI) 27.3 Intake & Output: Intake and Output for Last 24 Hours 05/29/21 05/30/21 05/31/21 23:59 23:59 23:59 Intake Total 2700 / 2700 1900 / 1900 Balance 2700 / 2700 1900 / 1900 Lab / Micro Data Result Diagrams: 05/30/21 04:46 05/29/21 14:50 Physical Exam Narrative Physical exam: General: Alert, Oriented x3, Cooperative, no apparent distress, well developed, multiple tattoos on the body HEENT: Atraumatic Oral: Moist Mucosa Neck: Supple Lungs: Clear to auscultation Cardiovascular: HS I+II, regular, no murmurs Abdomen: Bowel Sounds Present, Soft, Non Tender Extremities: No edema Assessment & Plan Assessment/Plan (1) Alcohol use disorder: (2) Tobacco abuse: (3) Alcohol withdrawal: QUALIFIERS: Complication of substance-induced condition: uncomplicated Qualified Code(s): F10.230 - Alcohol dependence with withdrawal, uncomplicated (4) Alcohol abuse: PLAN: 1. Acute alcohol withdrawal, improving, continue phenobarbital withdrawal protocol 2. Hypertension, better controlled, but not at goal Will add Lisinopril 10mg daily to help with diastolic hypertension Continue amlodipine and clonidine 3. Erythrocytosis, resolved 4. Rest of his chronic medical conditions including GERD, low testosterone, anxiety/depression remain stable for now Home meds reviewed Charges/Coding Visit Charges Inpatient E&M: 03148 Subs Hosp L2
[2021-05-31] MEDS: Lisinopril 10 MG Tablet PO (17:16)
[2021-05-31] MEDS: Acetaminophen 325 MG Tablet 650 MG PO (20:31)
[2021-05-31 21:37] VITALS: BP 145/104; PULSE 90; RESP 20; TEMP 36.4; O2SAT 100
[2021-05-31] MEDS: DOXEPIN HCL 50 MG CAPSULE PO (21:56)
[2021-06-01] MEDS: Phenobarbital 32.4 MG Tablet PO ×4 (01:57→19:40)
[2021-06-01 01:58] VITALS: BP 136/99; PULSE 93; RESP 16; TEMP 36.4; O2SAT 96
[2021-06-01] MEDS: cloNIDine HCl 0.1 MG Tablet PO (07:50)
[2021-06-01] MEDS: Gabapentin 600 MG Tablet PO ×4 (07:50→19:40)
[2021-06-01] MEDS: Pantoprazole Sodium 40 MG Tablet PO (07:50)
[2021-06-01] MEDS: Folic Acid 1 MG Tablet PO (07:50)
[2021-06-01] MEDS: Thiamine Hydrochloride 100 MG Tablet PO (07:50)
[2021-06-01] MEDS: amLODIPine 10 MG Tablet PO (07:51)
[2021-06-01] MEDS: Lisinopril 10 MG Tablet PO (07:51)
[2021-06-01 08:16] VITALS: BP 132/99; PULSE 82; RESP 16; TEMP 36.6; O2SAT 97
[2021-06-01 08:18] VITALS: BP 132/99; PULSE 82; RESP 16; TEMP 36.6; O2SAT 97
--- NOTE | 2021-06-01 08:32 | PCM.PN.HOSP ---
Subjective Subjective Follow-up on acute alcohol withdrawal: Patient was seen and examined. No complaints. No acute events overnight Objective Data Objective Data Vital Signs: Vital Signs Temp Pulse Resp BP Pulse Ox 97.8 F 82 16 132/99 H 97 06/01/21 08:18 06/01/21 08:18 06/01/21 08:18 06/01/21 08:18 06/01/21 08:18 Oxygen Delivery Method Room Air Weight: 88.451 kg Body Mass Index (BMI) 27.3 Intake & Output: Intake and Output for Last 24 Hours 05/30/21 05/31/21 06/01/21 23:59 23:59 23:59 Intake Total 2700 / 2700 1900 / 3900 3000 / 3000 Balance 2700 / 2700 1900 / 3900 3000 / 3000 Lab / Micro Data Result Diagrams: 05/30/21 04:46 05/29/21 14:50 Physical Exam Narrative Physical exam: General: Alert, Oriented x3, Cooperative, no apparent distress, well developed, multiple tattoos on the body HEENT: Atraumatic Oral: Moist Mucosa Neck: Supple Lungs: Clear to auscultation Cardiovascular: HS I+II, regular, no murmurs Abdomen: Bowel Sounds Present, Soft, Non Tender Extremities: No edema Assessment & Plan Assessment/Plan (1) Alcohol use disorder: (2) Tobacco abuse: (3) Alcohol withdrawal: QUALIFIERS: Complication of substance-induced condition: uncomplicated Qualified Code(s): F10.230 - Alcohol dependence with withdrawal, uncomplicated (4) Alcohol abuse: PLAN: 1. Acute alcohol withdrawal, improving, continue phenobarbital withdrawal protocol 2. Hypertension, better controlled, at goal now Continue amlodipine, lisinopril and clonidine Will check a CMP in a.m. 3. Erythrocytosis, resolved 4. Rest of his chronic medical conditions including GERD, low testosterone, anxiety/depression remain stable for now Home meds reviewed Charges/Coding Visit Charges Inpatient E&M: 78705 Subs Hosp L2
--- NOTE | 2021-06-01 10:43 | NURSING ---
pt pulling at bipap. removed and replaced nc at 12l
[2021-06-01 14:05] VITALS: BP 154/98; PULSE 84; RESP 16; TEMP 36.4; O2SAT 98
[2021-06-01 14:08] VITALS: BP 154/98; PULSE 84; RESP 16; TEMP 36.4; O2SAT 98
[2021-06-01 19:37] VITALS: BP 149/108; PULSE 87; RESP 18; TEMP 36.4; O2SAT 99
[2021-06-01] MEDS: DOXEPIN HCL 50 MG CAPSULE PO (19:40)
[2021-06-01] MEDS: Acetaminophen 325 MG Tablet 650 MG PO (22:06)
[2021-06-01] MEDS: hydrOXYzine PAM 25 MG Capsule 50 MG PO (22:06)
--- NOTE | 2021-06-01 23:00 | PCS.PANDOC ---
PANDEMIC DOCUMENTATION INITIATED: Date: 03/20/2021 Time: 190
[2021-06-02 01:55] VITALS: BP 148/97; PULSE 88; RESP 18; TEMP 36.6; O2SAT 98
[2021-06-02] MEDS: Phenobarbital 32.4 MG Tablet PO ×2 (01:58→08:27)
[2021-06-02 06:07] VITALS: BP 137/103; PULSE 85; RESP 18; TEMP 36.5; O2SAT 98
--- NOTE | 2021-06-02 06:38 | NURSING ---
pt refused AM labs this AM
[2021-06-02] MEDS: Gabapentin 600 MG Tablet PO (08:27)
[2021-06-02] MEDS: Pantoprazole Sodium 40 MG Tablet PO (08:27)
[2021-06-02] MEDS: Thiamine Hydrochloride 100 MG Tablet PO (08:27)
[2021-06-02] MEDS: amLODIPine 10 MG Tablet PO (08:28)
[2021-06-02] MEDS: cloNIDine HCl 0.1 MG Tablet PO (08:28)
[2021-06-02] MEDS: Lisinopril 10 MG Tablet PO (08:28)
[2021-06-02] MEDS: Folic Acid 1 MG Tablet PO (08:28)
[2021-06-02 08:50] VITALS: BP 174/117; PULSE 81; RESP 16; TEMP 36.4; O2SAT 100
--- NOTE | 2021-06-02 09:22 | PCM.DC ---
Discharge Instructions Diet Discharge Diet: No restrictions Activity Discharge Activity: Return to Normal Activity Follow Up Care Test Results: Test results from this visit will be discussed in further detail at your follow-up appointment, if applicable. Discharge Plan Admission Admit Date/Time: 05/29/21 15:37 Primary Reason for Your Visit: Acute alcohol withdrawal Attending Provider: La Sharp Primary Care Provider: Simran Cuevas,No Primary Instructions Additional Instructions / Restrictions: You are strongly advised to avoid alcohol or use of any illicit drug. Avoid smoking. Follow-up with your outpatient rehab program as scheduled. Discharge Orders/Prescriptions Prescriptions: New thiamine HCl (vitamin B1) [Vitamin B-1] 100 mg Tablet 100 mg PO DAILYCM 30 Days Qty: 30 RF: 0 amlodipine 10 mg Tablet 10 mg PO DAILY 30 Days Qty: 30 RF: 0 lisinopril [Zestril] 20 mg tablet 20 mg PO DAILY 30 Days Qty: 30 RF: 0 Continued testosterone enanthate 200 MG/ML oil 225 mg IM QWEEK RF: 0 doxepin 50 MG capsule 50 mg PO QHS RF: 0 gabapentin 600 MG tablet 600 mg PO 4X/DAY RF: 0 clonidine HCl 0.1 mg tablet 0.1 mg PO DAILY RF: 0 omeprazole 20 mg Capsule,Delayed Release(Dr/Ec) 20 mg PO DAILY RF: 0 Discontinued amlodipine 5 mg tablet 5 mg PO DAILY RF: 0 Referrals / Follow Up: Care Physician,No Primary [Primary Care Provider] - Within 2 Weeks Disposition Disposition (needs filled in before D/C Order can be placed): Home, Self Care
--- NOTE | 2021-06-02 09:32 | PCM.DC.SUM ---
Providers Date of Admission: 05/29/21 Date of Discharge: 06/02/21 Primary Care Physician: Talia Primary Care Phys Reason For Visit: ETOH WITHDRAWAL Diagnosis Discharge Diagnosis (1) Alcohol use disorder: Status: Chronic (2) Tobacco abuse: Status: Chronic Code(s): Z72.0 - Tobacco use (3) Alcohol withdrawal: Status: Acute Code(s): F10.239 - Alcohol dependence with withdrawal, unspecified Qualifiers: Complication of substance-induced condition: uncomplicated Qualified Code(s): F10.230 - Alcohol dependence with withdrawal, uncomplicated (4) Alcohol abuse: Status: Chronic Code(s): F10.10 - Alcohol abuse, uncomplicated (5) Uncontrolled hypertension: Status: Acute Code(s): I10 - Essential (primary) hypertension Medications at Discharge Home Medications testosterone enanthate 225 mg IM QWEEK 06/18/20 doxepin 50 mg PO QHS 07/25/20 gabapentin 600 mg PO 4X/DAY 07/25/20 clonidine HCl 0.1 mg PO DAILY 02/17/21 omeprazole 20 mg PO DAILY 05/29/21 amlodipine 10 mg PO DAILY 30 Days #30 tab 06/02/21 lisinopril [Zestril] 20 mg PO DAILY 30 Days #30 tab 06/02/21 thiamine HCl (vitamin B1) [Vitamin B-1] 100 mg PO DAILYCM 30 Days #30 tab 06/02/21 Hospital Course Operations None Procedures None Summary of Care Provided Minutes Spent on Discharge: 45 Hospital Course: 51-year-old male with past medical history of hypertension who drinks 6 tall boy a day as well as approximately a bottle of tequila every day. Patient comes in requesting for medical stabilization for detox for acute alcohol withdrawal. Admitting alcohol level was 71. Patient was admitted to the [facility] floor and started on the alcohol withdrawal protocol. During the course of his hospital stay, his blood pressure was elevated. Changes were made to his blood pressure medication. Patient continued to remain stable and was discharged to follow-up with outpatient drug rehab program. Physical Exam Narrative Physical exam: General: Alert, Oriented x3, Cooperative, no apparent distress, well developed, multiple tattoos on the body HEENT: Atraumatic Oral: Moist Mucosa Neck: Supple Lungs: Clear to auscultation Cardiovascular: HS I+II, regular, no murmurs Abdomen: Bowel Sounds Present, Soft, Non Tender Extremities: No edema Weight / BMI Weight Weight: 88.451 kg Body Mass Index (BMI) 27.3 ABG / Lab / Microbiology Data Result Diagrams: 05/30/21 04:46 05/29/21 14:50 D/C Instructions Discharge Diet: No restrictions Meaningful Use Info Meaningful Use Diagnoses (Choose all that apply): None applicable Discharge Plan Admission Admit Date/Time: 05/29/21 15:37 Primary Reason for Your Visit: Acute alcohol withdrawal Attending Provider: La Sharp Primary Care Provider: Simran Physician,No Primary Instructions Additional Instructions / Restrictions: You are strongly advised to avoid alcohol or use of any illicit drug. Avoid smoking. Follow-up with your outpatient rehab program as scheduled. Discharge Orders/Prescriptions Prescriptions: New thiamine HCl (vitamin B1) [Vitamin B-1] 100 mg Tablet 100 mg PO DAILYCM 30 Days Qty: 30 RF: 0 amlodipine 10 mg Tablet 10 mg PO DAILY 30 Days Qty: 30 RF: 0 lisinopril [Zestril] 20 mg tablet 20 mg PO DAILY 30 Days Qty: 30 RF: 0 Continued testosterone enanthate 200 MG/ML oil 225 mg IM QWEEK RF: 0 doxepin 50 MG capsule 50 mg PO QHS RF: 0 gabapentin 600 MG tablet 600 mg PO 4X/DAY RF: 0 clonidine HCl 0.1 mg tablet 0.1 mg PO DAILY RF: 0 omeprazole 20 mg Capsule,Delayed Release(Dr/Ec) 20 mg PO DAILY RF: 0 Discontinued amlodipine 5 mg tablet 5 mg PO DAILY RF: 0 Referrals / Follow Up: Care Physician,No Primary [Primary Care Provider] - Within 2 Weeks Disposition Disposition (needs filled in before D/C Order can be placed): Home, Self Care Charges/Coding Visit Charges Inpatient E&M: 01625 Disch Hosp
[2021-06-02] MEDS: Lisinopril 20 MG Tablet PO (10:03)
== END 2021-06-02 10:30 | disposition home or self-care (01) | DRG 775 ==
LOC: ED 15:46 → MS3 16:03
PROVIDERS: Admitting Provider Internal Medicine; Emergency Provider Emergency Medicine; Visit Provider Internal Medicine
DX: F10.230 Alcohol dependence with withdrawal, uncomplicated (principal); Y90.3 Blood alcohol level of 60-79 mg/100 ml; I10 Essential (primary) hypertension; K21.9 Gastro-esophageal reflux disease without esophagitis; F41.9 Anxiety disorder, unspecified; F32.A Depression, unspecified; F17.210 Nicotine dependence, cigarettes, uncomplicated; D75.1 Secondary polycythemia
CPT/HCPCS: 36415; 80053; 80307; 81001; 82077; 85025; 99284; 99406; J7030; A4216

== ENCOUNTER 2021-08-15 14:31 | Inpatient (IN) | payer MEDICAID, SELFPAY ==
[2021-08-15 14:32] VITALS: BP 161/117; PULSE 95; RESP 16; TEMP 36.6; O2SAT 98; BMI 27.8
--- NOTE | 2021-08-15 14:39 | CM.ED ---
Addendum entered by Nona Roblero 08/15/21 14:53: FREDO called Anton, Addiction Therapist and updated her regarding patient being in the ED for admission to [facility]. Nona DALE Original Note: FREDO Note Referral Source: Case Find Referral Reason: LIDYA Montes met with patient. He reports he is at the hospital for detox. He reports that he has been to the [facility] program before. He reports he is aware of the program rules which include personal items locked up and no visitors or cell phone and voiced understanding. Patient reports that his drug of choice is alcohol. Last use was between 3-5am this morning. When asked how much alcohol he used he said I got real drunk. Patient said that he has been drinking 6 of tall boys (8% alcohol) and a pint of tequila (several times a week). Patient said that he has been at [facility] in the past. Patient is not currently linked with AOD treatment or counseling agency. FREDO will continue to follow. Nona DALE
[2021-08-15] MEDS: Phenobarbital 32.4 MG Tablet 97.2 MG PO (15:05)
[2021-08-15] MEDS: LORazepam 2 MG/ML Syringe 0.5 MG IV (15:05)
--- NOTE | 2021-08-15 15:10 | RAD_ITS ---
STUDY: X-RAY CHEST REASON FOR EXAM: Male, 51 years old. Smoking, clubbing TECHNIQUE: PA and lateral views of the chest. COMPARISON: None. FINDINGS: There is hyperinflation of the lungs consistent with chronic obstructive lung disease (COPD). There is no demonstrated pleural abnormality. Normal size heart. Normal mediastinum and kimberly. There is prominence of the pulmonary hilar arteries without peripheral pulmonary vascular congestion, suggesting pulmonary hypertension. Normal visualized aortic arch and descending thoracic aorta. Normal visualized thoracic spine. Normal visualized ribs, clavicles, and shoulders. There is no demonstrated abnormality of the visualized soft tissue structures of the upper abdomen. RAD/Chest PA and Lateral IMPRESSION: Hyperinflation. Prominence of the central pulmonary arteries. Electronically Signed: Xavier Singh MD at 15:29 EST , Service support ,
[2021-08-15 15:15] LABS: Absolute Neutrophil Count 2.4 X10^3/uL (2.0-7.7); Basophil# 0.08 X10^3/uL; Basophil% 1.7 % (0-1); Eosinophil# 0.08 X10^3/uL; Eosinophils% 1.7 % (0-5); Hematocrit 49.2 % (40-54); Hemoglobin 17.6 g/dL (13.0-16.5); Lymphocyte % 30.6 % (19-41); Mean Corp Hgb Conc 35.8 g/dL (32-36); Mean Corpuscular Hgb 32.5 pg (27.0-32.0); Mean Corpuscular Volume 90.8 fL (80-94); Mean Platelet Vol. 8.9 fl (6.2-12.0); Monocyte# 0.58 X10^3/uL; Monocyte% 12.7 % (0-10); NRBC Flagged by Analyzer 0 % (0-5); Neutrophil # 2.44 X10^3/uL (2.7-7.7); Neutrophil % 53.3 % (47-70); Platelet Count 199 K/mm3 (150-450); RBC Distribution Width CV 13.1 % (11.6-14.6); RBC Distribution Width SD 43.8 fl (35.1-43.9); Red Blood Count 5.42 M/mm3 (4.6-6.2); White Blood Count 4.6 K/mm3 (4.4-11.0)
[2021-08-15 15:28] LABS: International Normalized Ratio 0.9; Prothrombin Time (Protime)PT. 11.6 SECONDS (11.7-14.9)
[2021-08-15 15:32] LABS: ALB/GLOB Ratio 0.8 RATIO (0.9-2.4); AST(SGOT) 88 U/L (15-37); Alanine Aminotransfer ALT/SGPT 87 U/L (16-61); Albumin, Serum 3.7 g/dL (3.2-5.0); Alkaline Phosphatase 81 U/L (45-117); Anion Gap 6 (5-15); BUN 13 mg/dL (7-18); BUN/Creat Ratio 15.2 RATIO (10-20); Calcium,Total 8.8 mg/dL (8.5-10.1); Chloride 107 mmol/L (98-107); Creatinine, Serum 0.85 mg/dL (0.70-1.30); EST Glomerular Filtration Rate 101 mL/min (>60); Est Glom Filt Rate - Afr Amer 122 mL/min (>60); Estimated Creatinine Clearance 111.97 ml/min; Globulin 4.4 g/dL (2.2-4.2); Glucose 98 mg/dL (74-106); Protein, Total 8.1 g/dL (6.4-8.2); Sodium Level 139 mmol/L (136-145)
--- NOTE | 2021-08-15 15:37 | EDS_ITS ---
HPI History of Present Illness Chief Complaint: Substance Abuse Detail of Chief Complaint: Requesting detox from alcohol Informant: patient Onset/Context/Timing Onset: Month(s) Context: Sudden Onset Timing: Continuous Quality: Consuming 1 pint of tequila and 6+ tall boys daily Location: Not applicable Current Severity: Mild Maximum Severity: Severe Worsened by: Abstinence Relieved by: Drinking Associated Symptoms Associated Symptoms: Tremors, palpitations, diarrhea Narrative Narrative: Patient is a 51-year-old male history of alcohol abuse, illicit drug use, hypertension who has been in a detox program in the past. He states he has not been at our program in 6 months. He states he started drinking because of the demons . He does also admit using cocaine recently and marijuana. He stated he was not concerned because his addiction was to opiates. Patient reports tremors, nausea, diarrhea and palpitations. He is a heavy drinker. He has not used opiates in 6 months. He used cocaine 1 to 2 months ago. He has used marijuana. He does smoke 1/2 pack/day. He denies black or maroon-colored stool. Denies bruising easily. He was u naware that he has clubbing. He has no known lung problems. Prior similar symptoms: Yes Recent Illness/Hospitalization: No [facility] Medical History Abscess of buttock, right Alcohol abuse Alcohol abuse Anxiety Depression Erythrocytosis GERD (gastroesophageal reflux disease) Opiate abuse, continuous Opioid abuse Opioid abuse Polysubstance abuse Sleep apnea Smoker Substance abuse Home Medications testosterone enanthate 225 mg IM QWEEK 06/18/20 [History Last Taken 05/26/21] doxepin 50 mg PO QHS 07/25/20 [History Last Taken 1 Week Ago ~05/22/21] gabapentin 600 mg PO 4X/DAY 07/25/20 [History Last Taken 05/28/21] clonidine HCl 0.1 mg PO DAILY 02/17/21 [History Last Taken 1 Week Ago ~05/22/21] omeprazole 20 mg PO DAILY 05/29/21 [History Last Taken 05/29/21] thiamine HCl (vitamin B1) [Vitamin B-1] 100 mg PO DAILYCM 30 Days #30 tab 06/02/21 [Rx Last Taken Unknown] Allergy/AdvReac Type Severity Reaction Status Date / Time No Known Allergies Allergy Verified 08/15/21 14:34 Surgical History History of ankle surgery Social History (Updated 08/15/21 @ 15:[address] Baljinder Perla MD) household members: significant other Smoking Status: Light Smoker (<10/day) alcohol intake: current alcohol intake frequency: 3 or more drinks per day substance use type: former substance user Date of last use: 02/16/2021-opiates ROS ROS ED Constitutional Constitutional ED: Reports sweats; Denies chills, fever(s), subjective or weight loss Eyes Eyes: Denies blurry vision, change in vision or diplopia ENT ENT ED: Denies ear pain, rhinorrhea or sore throat Cardiovascular Cardiovascular: Reports palpitations; Denies chest pain, orthopnea or racing heartbeat Respiratory/Chest Respiratory/Chest: Reports cough; Denies dyspnea, dyspnea on exertion, orthopnea or sputum Gastrointestinal Gastrointestinal: Reports diarrhea and nausea; Denies abdominal pain, constipation, melena or vomiting Genitourinary Genitourinary ED: Denies dysuria, hematuria or urinary frequency Musculoskeletal Musculoskeletal: Denies arthralgias, back pain or myalgias Integumentary Denies rash Neurologic Neurologic: Reports weakness; Denies headache(s) or paresthesias Psychiatric Psychiatric: Reports depression; Denies anxiety or suicidal thoughts Hematologic/Lymphatic Hematologic/Lymphatic: Denies easy bleeding or easy bruising EXAM Physical Exam Const Vital Signs: 08/15/21 14:32 Temperature 97.8 F Temperature Source Temporal Pulse Rate 95 Respiratory Rate 16 Blood Pressure 161/117 H Blood Pressure Mean 131 Pulse Ox 98 Oxygen Delivery Method Room Air Positive well nourished and well developed General Appearance ED: well developed; Negative for cyanotic, diaphoretic or pallor HEENT Reports TM's clear and moist mucous membranes HEENT Narrative: Nares patent. Posterior pharynx out erythema or exudate. Negative for trauma or tenderness Tympanic Membrane ED: Yes TM's clear Eyes PERRL and EOMs intact bilaterally General Eye ED: Negative for pale conjunctiva or scleral icterus Neck no lymphadenopathy, supple and no JVD Chest Wall palpation of chest normal Resp normal respiratory effort and clear to auscultation bilaterally Cardio regular rate, regular rhythm, S1 normal heart sound, S2 normal heart sound and no murmurs GI normal to inspection, nondistended, normoactive bowel sounds, non-tender and non-distended Palpation: soft Back/Spine no CVA tenderness Cervical Spine: Negative for cervical spine tenderness Thoracic Spine / Upper Back: Negative for thoracic spinal tenderness or paraspinal muscle tenderness Extremity normal to inspection General Extremety ED: Negative for edema or tenderness General Extremity: Negative for edema Neuro oriented x3, CN's II-XII intact bilaterally and no sensory deficits noted Neuro Narrative: Patella and ankle and bicep reflex are 2+. He has no clonus or Babinski sign. There is no metria. Sensorium / Orientation: alert Motor Exam: strength 5/5 throughout Psych Mood & Affect: depressed Skin no rashes or lesions noted and no wounds General Skin Exam: Negative for jaundice or pallor MDM MDM MDM Narrative Medical decision making narrative: Appropriate screening blood work was obtained in light of the amount of alcohol he consumes. He also received IV Ativan and p.o. phenobarb. Because he has clubbing with longstanding history of smoking chest x-ray was obtained. Chest x-ray reveals prominent hilum due to dilated pulmonary veins. There is no infiltrate or effusion noted. There is no abnormality of the bony structures. Lab Data Attestation: I reviewed the patient's lab results. Lab results narrative: Hemoglobin is elevated at 17.6. PT/INR is normal. AST and ALT are elevated most likely due to his alcohol abuse. Labs: Laboratory Results - last 24 hr 08/15/21 08/15/21 08/15/21 15:05 15:05 15:05 WBC 4.6 RBC 5.42 Hgb 17.6 H Hct 49.2 MCV 90.8 MCH 32.5 H MCHC 35.8 RDW Std Deviation 43.8 RDW Coeff of Mayte 13.1 Plt Count 199 MPV 8.9 Immature Gran % (Auto) 0.000 Neut % (Auto) 53.3 Lymph % (Auto) 30.6 [place] % (Auto) 12.7 H Eos % (Auto) 1.7 Baso % (Auto) 1.7 H Absolute Neuts (auto) 2.4 Absolute Lymphs (auto) 1.40 Nucleated RBC % 0 PT 11.6 L INR 0.9 Sodium 139 Potassium 4.0 Chloride 107 Carbon Dioxide 26.0 Anion Gap 6 BUN 13 Creatinine 0.85 Estim Creat Clear Calc 111.97 Est GFR (MDRD) Af Amer 122 Est GFR (MDRD) Non-Af 101 BUN/Creatinine Ratio 15.2 Glucose 98 Calcium 8.8 Total Bilirubin 0.60 AST 88 H ALT 87 H Alkaline Phosphatase 81 Total Protein 8.1 Albumin 3.7 Globulin 4.4 H Albumin/Globulin Ratio 0.8 L Radiography Chest X-Ray - ED: 2 View and Read by ED Physician (2 view x-ray of the chest was obtained. Cardiac silhouette size normal. Perihilar regions are prominent consistent with pulmonary hypertension. [place] structures are unremarkable.) Diagnostic Testing: Clinical Impression(s) from Imaging Studies Chest X-Ray 08/15/21 15:10 IMPRESSION: Hyperinflation. Prominence of the central pulmonary arteries. Electronically Signed: Xavier Singh MD at 15:29 EST , Service support , Rhythm Strip Rhythm Strip: Sinus Rhythm Rate: 99 Ectopy: None Discharge Plan Triage Chief Complaint: Substance Abuse Other Complaint: ETOH Intox ED Provider: Baljinder Perla Dx/Rx/DC Orders Clinical Impression: Alcohol abuse with physiological dependence, Alcohol intoxication in active alcoholic, Clubbing of fingers, Depression Prescriptions: No Action testosterone enanthate 200 MG/ML oil 225 mg IM QWEEK RF: 0 doxepin 50 MG capsule 50 mg PO QHS RF: 0 gabapentin 600 MG tablet 600 mg PO 4X/DAY RF: 0 clonidine HCl 0.1 mg tablet 0.1 mg PO DAILY RF: 0 omeprazole 20 mg Capsule,Delayed Release(Dr/Ec) 20 mg PO DAILY RF: 0 thiamine HCl (vitamin B1) [Vitamin B-1] 100 mg Tablet 100 mg PO DAILYCM 30 Days Qty: 30 RF: 0 Primary Care Provider: Care Physician,No Primary Referrals: Care Physician,No Primary [Primary Care Provider] - Disposition Disposition: [facility]
--- NOTE | 2021-08-15 15:54 | PCM.HP.STD ---
HPI - General General Date of Admission: 08/15/21 Date of Service: 08/15/21 Chief Complaint: Acute alcohol withdrawal HPI Narrative TRAN CARR, is a 51 M who presented to the emergency department [facility] on 08/15/2021 with request for alcohol detox. He has been admitted for alcohol detox in the past with the most recent admission being in May. He states he had a very brief period of sobriety afterwards but started drinking again. He states that he is currently drinking a pint of tequila a day and 6 tall boys that are 8% alcohol. His last drink was at between 3 and 5 AM this morning. He also notes that he did a line of coke within the last week at a constitution party he was at and has been smoking marijuana periodically. He has a history of opiate use but states he has not used any opiates for some time now. He presented with interest in sobriety from alcohol. His vital signs in the emergency department are unremarkable other than elevated blood pressure. He typically has elevated blood pressure when he presents for detox. His CBC shows erythrocytosis which is chronic. He also has clubbing on exam and is a smoker at baseline. Coags were normal. His CMP shows normal electrolytes and renal function with mildly elevated liver functions having an AST of 88 and an ALT of 87. I suspect his transaminitis is related to his alcohol consumption and we will repeat these in the morning. His talk screen was positive for cannabis and cocaine. His alcohol level was 131 on admission. Chest x-ray shows hyperinflation with prominent central pulmonary vasculature. He will be admitted to medical surgical floor and detox with phenobarbital and supportive medications. [facility] Medical History Abscess of buttock, right Alcohol abuse Alcohol abuse Anxiety Depression Erythrocytosis GERD (gastroesophageal reflux disease) Opiate abuse, continuous Opioid abuse Opioid abuse Polysubstance abuse Sleep apnea Smoker Substance abuse Home Medications testosterone enanthate 225 mg IM QWEEK 06/18/20 [History Last Taken 05/26/21] doxepin 50 mg PO QHS 07/25/20 [History Last Taken 1 Week Ago ~05/22/21] gabapentin 600 mg PO 4X/DAY 07/25/20 [History Last Taken 05/28/21] clonidine HCl 0.1 mg PO DAILY 02/17/21 [History Last Taken 1 Week Ago ~05/22/21] omeprazole 20 mg PO DAILY 05/29/21 [History Last Taken 05/29/21] thiamine HCl (vitamin B1) [Vitamin B-1] 100 mg PO DAILYCM 30 Days #30 tab 06/02/21 [Rx Last Taken Unknown] Allergy/AdvReac Type Severity Reaction Status Date / Time No Known Allergies Allergy Verified 08/15/21 14:34 no significant family history Surgical History History of ankle surgery Social History household members: significant other Smoking Status: Light Smoker (<10/day) alcohol intake: current alcohol intake frequency: 3 or more drinks per day substance use type: former substance user Date of last use: 02/16/2021-opiates ROS Constitutional Constitutional: Denies anorexia, change in weight, chills, fatigue, fever(s), malaise, night sweats, weakness or other Eyes Eyes: Denies blurry vision, change in eye color, change in vision, discharge from eye(s), double vision, erythema, eye pain, loss of vision or other ENT HEENT: Denies abnormal hearing, dysphagia, ear pain, epistaxis, headache(s), hearing loss, nasal congestion, nasal discharge, post nasal drip, sinus pressure, sore throat or other Cardiovascular Cardiovascular: Denies chest pain, claudication, dyspnea on exertion, edema, lightheadedness, orthopnea, palpitations, paroxysmal nocturnal dyspnea, rapid heart rate, syncope or other Respiratory/Chest Respiratory/Chest: Denies cough, dyspnea, excessive phlegm production, hemoptysis, productive cough, shortness of breath at rest, shortness of breath with exertion, wheezing or other Gastrointestinal Gastrointestinal: Denies abdominal pain, coffee ground emesis, constipation, diarrhea, dyspepsia, hematemesis, hematochezia, loose stools, melena, nausea, vomiting or other Genitourinary Genitourinary: Denies burning urination, difficulty urinating, dysuria, hematuria, nocturia, urinary frequency, urinary hesitancy, urinary incontinence, urinary urgency or other Musculoskeletal Musculoskeletal: Denies arthralgias, back pain, joint pain, joint stiffness, joint swelling, myalgias, neck pain or other Neurologic Neurologic: Denies abnormal gait, abnormal speech, confusion, disequilibrium, dizziness, focal weakness, headache(s), numbness, paresthesias, seizure-like activity, seizures, syncope, tingling, tremor(s) or other Psychiatric Psychiatric: Denies anxiety, depression, homicidal ideation, suicidal ideation or other Endocrine Endocrinology: Denies change in body appearance, cold intolerance, excessive sweating, heat intolerance, polydipsia, polyuria or other Hematologic/Lymphatic Hematologic/Lymphatic: Denies anemia, easy bleeding, easy bruising, lymphadenopathy or other Allergic/Immunologic Allergic/Immunologic: Denies rhinitis, hives, eczemia, asthma or other Vital Signs Vital Signs Vital Signs: 08/15/21 14:32 Temperature 97.8 F Temperature Source Temporal Pulse Rate 95 Respiratory Rate 16 Blood Pressure 161/117 H Blood Pressure Mean 131 Pulse Ox 98 Oxygen Delivery Method Room Air Weight Weight: 90.718 kg Body Mass Index (BMI) 27.8 Physical Exam Const alert, oriented x3 and no apparent distress Constitutional Narrative: Overweight middle-aged white male sitting up in bed, appears comfortable, nontoxic General Appearance: cooperative HEENT normocephalic, head/scalp atraumatic, hearing grossly normal bilaterally and moist oral mucous membranes HEENT Narrative: Mallampati 2-3, no thrush, fair dentition Resp normal respiratory effort, no retractions, no use of accessory muscles and clear to auscultation bilaterally Auscultation: Negative for crackles, rales, rhonchi or wheezes Cardio regular rate, regular rhythm, S1 normal heart sound, S2 normal heart sound, no murmurs, no rub, no gallops, no clicks and no JVD GI normal to inspection, nondistended, normoactive bowel sounds, soft to palpation, non-tender and non-distended Extremity normal to inspection Extremity Narrative: Upper extremity clubbing bilaterally, no cyanosis or edema Peripheral Pulses: Yes pulses 2+ throughout Neuro oriented x3, CN's II-XII intact bilaterally and moves all extremities Neuro Narrative: No tremor at this time Sensorium / Orientation: awake and alert Speech: speech normal Motor Exam: strength 5/5 throughout Psych affect normal Psych Narrative: Pleasant Results Lab / Micro Data Attestation: I reviewed the patient's lab results. Result Diagrams: 08/15/21 15:05 08/15/21 15:05 Labs: Laboratory Results - last 24 hr 08/15/21 15:05: WBC 4.6, RBC 5.42, Hgb 17.6 H, Hct 49.2, MCV 90.8, MCH 32.5 H, MCHC 35.8, RDW Std Deviation 43.8, RDW Coeff of Mayte 13.1, Plt Count 199, MPV 8.9, Immature Gran % (Auto) 0.000, Neut % (Auto) 53.3, Lymph % (Auto) 30.6, [place] % (Auto) 12.7 H, Eos % (Auto) 1.7, Baso % (Auto) 1.7 H, Absolute Neuts (auto) 2.4, Absolute Lymphs (auto) 1.40, Nucleated RBC % 0 08/15/21 15:05: PT 11.6 L, INR 0.9 08/15/21 15:05: Sodium 139, Potassium 4.0, Chloride 107, Carbon Dioxide 26.0, Anion Gap 6, BUN 13, Creatinine 0.85, Estim Creat Clear Calc 111.97, Est GFR (MDRD) Af Amer 122, Est GFR (MDRD) Non-Af 101, BUN/Creatinine Ratio 15.2, Glucose 98, Calcium 8.8, Total Bilirubin 0.60, AST 88 H, ALT 87 H, Alkaline Phosphatase 81, Total Protein 8.1, Albumin 3.7, Globulin 4.4 H, Albumin/Globulin Ratio 0.8 L Rhythm Strip Rhythm Strip: Sinus Rhythm Rate: 99 Ectopy: None Radiology Impression Chest X-Ray 08/15/21 15:10 IMPRESSION: Hyperinflation. Prominence of the central pulmonary arteries. Electronically Signed: Xavier Singh MD at 15:29 EST , Service support , Assessment & Plan Assessment/Plan (1) Alcohol abuse with physiological dependence: (2) Transaminitis: PLAN: Acute alcohol withdrawal -Last drink was a approximately 13 hours prior to his arrival here -Start phenobarb taper and supportive medications per order set -Thiamine and folate -Addiction consultation for 180 Acute transaminitis -Suspect alcoholic hepatitis -Repeat lab in a.m. Erythrocytosis -Elevation is chronic -Patient is likely dehydrated as well as his history of tobacco abuse Hypertension -Continue clonidine -Has also been on amlodipine in the past--> he ran out of amlodipine and has not been taking this -Monitors blood pressure to see if we need to reinitiate it he feels that his pressures are mostly elevated due to his withdrawal GERD -Continue Protonix Low testosterone -Restart supplemental testosterone upon discharge Depression/anxiety -Continue doxepin at at bedtime History of opiate abuse -Patient has gone through rehabilitation program and has been sober for 90 days -Last use was 02/16/2021 -Opiate of choice was fentanyl Tobacco abuse -21 mcg nicotine patch if patient desires -Recommend cessation DVT prophylaxis -Early ambulation protocol CODE STATUS -Full code Charges/Coding Visit Charges Inpatient E&M: 69146 Init Hosp L2
--- NOTE | 2021-08-15 15:54 | NURSING ---
DR CADEN TSE
[2021-08-15 16:02] VITALS: BP 176/113
[2021-08-15 16:14] VITALS: BP 176/113; PULSE 95; RESP 16; TEMP 36.6; O2SAT 98
--- NOTE | 2021-08-15 16:21 | NURSING ---
MED SURG CADEN ALCOHOL DEPENDENCY, ALCOHOL INTOXICATION
[2021-08-15 16:30] LABS: Amphetamine Urine VISTA NEGATIVE (<1000 ng/mL); Barbiturate Urine VISTA NEGATIVE (< 200 ng/mL); Benzodiazepine Urine VISTA NEGATIVE (< 200 ng/mL); Cocaine Urine VISTA POSITIVE (< 300 ng/mL); Ecstacy Urine VISTA NEGATIVE (< 500 ng/mL); Methadone Urine VISTA NEGATIVE (< 300 ng/mL); PCP Urine VISTA NEGATIVE (< 25 ng/mL); THC Urine VISTA NEGATIVE (< 50 ng/mL); Vista UDS pH Range 6
[2021-08-15 17:08] VITALS: BMI 25.9
[2021-08-15 17:15] VITALS: BP 174/127; PULSE 86; RESP 16; TEMP 36.8; O2SAT 99
[2021-08-15 17:18] VITALS: BP 174/127; PULSE 86; RESP 16; TEMP 36.8; O2SAT 98
[2021-08-15] MEDS: Phenobarbital 32.4 MG Tablet 64.8 MG PO ×2 (18:26→21:03)
[2021-08-15] MEDS: Gabapentin 600 MG Tablet PO ×2 (18:32→21:03)
[2021-08-15 20:49] VITALS: BP 161/114; PULSE 96; RESP 16; TEMP 36.7; O2SAT 96
[2021-08-15] MEDS: cloNIDine HCl 0.1 MG Tablet PO (21:03)
[2021-08-15] MEDS: hydrOXYzine PAM 25 MG Capsule 50 MG PO (21:03)
[2021-08-15] MEDS: DOXEPIN HCL 50 MG CAPSULE PO (21:03)
[2021-08-16] VITALS (7 sets, daily range): BP systolic 142–170; BP diastolic 102–125; PULSE 76–92; RESP 16–18; TEMP 36.3–36.7; O2SAT 98
[2021-08-16] MEDS: Phenobarbital 32.4 MG Tablet 64.8 MG PO ×6 (01:00→20:01)
[2021-08-16] MEDS: hydrALAZINE 20 MG/ML Vial 10 MG IV (05:53)
[2021-08-16] MEDS: 0.9% Saline Lock 10 ML Syringe IV (05:53)
[2021-08-16 05:59] LABS: International Normalized Ratio 0.9; Prothrombin Time (Protime)PT. 11.3 SECONDS (11.7-14.9)
[2021-08-16 06:32] LABS: ALB/GLOB Ratio 0.8 RATIO (0.9-2.4); AST(SGOT) 65 U/L (15-37); Alanine Aminotransfer ALT/SGPT 77 U/L (16-61); Albumin, Serum 3.3 g/dL (3.2-5.0); Alkaline Phosphatase 77 U/L (45-117); Anion Gap 10 (5-15); BUN 15 mg/dL (7-18); BUN/Creat Ratio 17.6 RATIO (10-20); Calcium,Total 8.9 mg/dL (8.5-10.1); Chloride 101 mmol/L (98-107); Creatinine, Serum 0.85 mg/dL (0.70-1.30); EST Glomerular Filtration Rate 101 mL/min (>60); Est Glom Filt Rate - Afr Amer 123 mL/min (>60); Estimated Creatinine Clearance 111.97 ml/min; Globulin 3.9 g/dL (2.2-4.2); Glucose 88 mg/dL (74-106); Magnesium 2.3 mg/dL (1.6-2.6); Potassium 3.4 mmol/L (3.5-5.1); Protein, Total 7.2 g/dL (6.4-8.2); Sodium Level 137 mmol/L (136-145)
--- NOTE | 2021-08-16 07:47 | PN.HOSP_ITS ---
Subjective Subjective Patient is a 51-year-old gentleman with history of alcohol dependence as well as polysubstance abuse admitted with acute alcohol withdrawal Objective Data Objective Data Vital Signs: Vital Signs Temp Pulse Resp BP Pulse Ox 97.6 F L 79 16 167/122 H 98 08/16/21 05:48 08/16/21 05:53 08/16/21 05:48 08/16/21 05:48 08/16/21 05:48 Oxygen Delivery Method Room Air Weight: 84.368 kg Body Mass Index (BMI) 25.9 Intake & Output: Intake and Output for Last 24 Hours 08/14/21 08/15/21 08/16/21 23:59 23:59 23:59 Intake Total 360 / 360 Balance 360 / 360 Lab / Micro Data Result Diagrams: 08/15/21 15:05 08/16/21 05:11 Labs: Laboratory Results - last 24 hr 08/15/21 15:05: WBC 4.6, RBC 5.42, Hgb 17.6 H, Hct 49.2, MCV 90.8, MCH 32.5 H, MCHC 35.8, RDW Std Deviation 43.8, RDW Coeff of Mayte 13.1, Plt Count 199, MPV 8.9, Immature Gran % (Auto) 0.000, Neut % (Auto) 53.3, Lymph % (Auto) 30.6, [place] % (Auto) 12.7 H, Eos % (Auto) 1.7, Baso % (Auto) 1.7 H, Absolute Neuts (auto) 2.4, Absolute Lymphs (auto) 1.40, Nucleated RBC % 0 08/15/21 15:05: PT 11.6 L, INR 0.9 08/15/21 15:05: Sodium 139, Potassium 4.0, Chloride 107, Carbon Dioxide 26.0, Anion Gap 6, BUN 13, Creatinine 0.85, Estim Creat Clear Calc 111.97, Est GFR (MDRD) Af Amer 122, Est GFR (MDRD) Non-Af 101, BUN/Creatinine Ratio 15.2, Glucose 98, Calcium 8.8, Total Bilirubin 0.60, AST 88 H, ALT 87 H, Alkaline Phosphatase 81, Total Protein 8.1, Albumin 3.7, Globulin 4.4 H, Albumin/Globulin Ratio 0.8 L 08/15/21 15:05: Ethyl Alcohol 131.0 08/15/21 16:00: Urine Opiates Screen NEGATIVE, Urine Methadone Screen NEGATIVE, Ur Barbiturates Screen NEGATIVE, Ur Phencyclidine Scrn NEGATIVE, Ur Amphetamines Screen NEGATIVE, U Methamphetamin-MDMA NEGATIVE, U Benzodiazepines Scrn NEGAT SHARON, Urine Cocaine Screen POSITIVE H, U Cannabinoids Screen NEGATIVE, Ur Drug Screen Comment 08/16/21 05:11: PT 11.3 L, INR 0.9 08/16/21 05:11: Sodium 137, Potassium 3.4 L, Chloride 101, Carbon Dioxide 26.0, Anion Gap 10, BUN 15, Creatinine 0.85, Estim Creat Clear Calc 111.97, Est GFR (MDRD) Af Amer 123, Est GFR (MDRD) Non-Af 101, BUN/Creatinine Ratio 17.6, Glucose 88, Calcium 8.9, Magnesium 2.3, Total Bilirubin 0.80, AST 65 H, ALT 77 H , Alkaline Phosphatase 77, Total Protein 7.2, Albumin 3.3, Globulin 3.9, Albumin/Globulin Ratio 0.8 L Micro: Microbiology 08/15/21 17:45 Nasal Secretion SARS-CoV-2 Antigen (Rapid) - Final Radiography Diagnostic Testing: Radiology Impression Chest X-Ray 08/15/21 15:10 IMPRESSION: Hyperinflation. Prominence of the central pulmonary arteries. Electronically Signed: Xavier Singh MD at 15:29 EST , Service support , Rhythm Strip Rhythm Strip: Sinus Rhythm Rate: 99 Ectopy: None Physical Exam Narrative GENERAL: cooperative HEENT: Atraumatic; EYES; Anicteric, Normal Conjunctiva NECK; supple, normal thyroid, RESPIRATORY: Diminished to auscultation CARDIOVASCULAR: Regular S1 S2, GI: soft, normoactive bowel sounds, : No Renal angle tenderness; EXTREMITIES: No edema, no clubbing, MUSCULOSKELETAL: no muscle waisting NEURO: Awake; no lateralizing signs. SKIN: No Rash PSYCH; Flat affect Assessment & Plan Assessment/Plan (1) Alcohol abuse with physiological dependence: (2) Transaminitis: PLAN: Patient is a 51-year-old gentleman with history of alcohol dependence as well as polysubstance abuse admitted with acute alcohol withdrawal 1. Acute alcohol withdrawal ? Patient has been admitted to regular nursing floor currently being managed with phenobarb taper 2. Acute transaminitis ? Attributed to patient alcohol use monitoring with CMP 3. Hypertension - Blood pressure controlled, home medications continued with dose adjustment as needed 4. GERD ? On PPI did continue 5. Hypokalemia -Corrected per protocol 6. Tobacco dependence - Counseled on cessation, offered nicotine patch for tobacco cravings 7. History of previous opioid dependence ? Patient underwent rehabilitation and has remained sober since February 2021 8. Low testosterone ? Patient apparently on testosterone supplementation with plans to resume on discharge 9. DVT prophylaxis ? Low risk did encourage ambulation Charges/Coding Visit Charges Inpatient E&M: 67443 Subs Hosp L3
[2021-08-16] MEDS: Gabapentin 600 MG Tablet PO ×4 (09:14→19:56)
[2021-08-16] MEDS: Folic Acid 1 MG Tablet PO (09:15)
[2021-08-16] MEDS: Pantoprazole Sodium 20 MG Tablet PO (09:15)
[2021-08-16] MEDS: cloNIDine HCl 0.1 MG Tablet PO (09:20)
[2021-08-16] MEDS: Thiamine Hydrochloride 100 MG Tablet 200 MG PO (09:20)
--- NOTE | 2021-08-16 10:30 | ADDICTION ---
Addendum entered by Faina Herrera 08/16/21 11:14: Physicians can consult with Dr. Valladares if pt returns for detox. Original Note: This justowriter operator met with PT to conduct ASAM, MSE, AUDIT assessments and to plan for d/c. All assessments completed. PT declined d/c planning noting that he will follow up with his friend's friend who is high up in this company. This justowriter operator encouraged PT to schedule an appointment but PT declined again. This worker informed pt that this is his 6th time in detox with no follow up treatment reported. This worker informed client in order to be in the [facility] program again he will need to be willing to go to a residential treatment facility. No transportation needs identified.
[2021-08-16] MEDS: Potassium Chloride Oral Tablet 20 MEQ PO (17:01)
[2021-08-16] MEDS: DOXEPIN HCL 50 MG CAPSULE PO (19:56)
[2021-08-17] MEDS: Phenobarbital 32.4 MG Tablet 64.8 MG PO ×6 (00:32→21:23)
[2021-08-17 02:34] VITALS: BP 162/103; PULSE 85; RESP 18; TEMP 36.4; O2SAT 98
[2021-08-17] MEDS: hydrOXYzine PAM 25 MG Capsule 50 MG PO ×2 (02:45→21:23)
[2021-08-17 07:20] VITALS: BP 153/98; PULSE 78; RESP 18; TEMP 36.2; O2SAT 99
[2021-08-17] MEDS: Potassium Chloride Oral Tablet 20 MEQ PO ×2 (07:27→17:51)
[2021-08-17] MEDS: Thiamine Hydrochloride 100 MG Tablet 200 MG PO (07:27)
[2021-08-17] MEDS: Gabapentin 600 MG Tablet PO ×4 (07:27→21:23)
[2021-08-17] MEDS: Folic Acid 1 MG Tablet PO (07:27)
--- NOTE | 2021-08-17 07:34 | PCM.PN.HOSP ---
Subjective Subjective Patient seen has tolerated the phenobarb taper well so far. Blood pressure however remains uncontrolled subsequent adjustment made to her antihypertensive regimen Objective Data Objective Data Vital Signs: Vital Signs Temp Pulse Resp BP Pulse Ox 97.2 F L 78 18 153/98 H 99 08/17/21 07:20 08/17/21 07:20 08/17/21 07:20 08/17/21 07:20 08/17/21 07:20 Oxygen Delivery Method Room Air Weight: 84.4 kg Body Mass Index (BMI) 25.9 Intake & Output: Intake and Output for Last 24 Hours 08/15/21 08/16/21 08/17/21 23:59 23:59 23:59 Intake Total 360 / 360 710 / 1060 950 / 950 Balance 360 / 360 710 / 1060 950 / 950 Lab / Micro Data Result Diagrams: 08/15/21 15:05 08/16/21 05:11 Micro: Microbiology 08/15/21 17:45 Nasal Secretion SARS-CoV-2 Antigen (Rapid) - Final Rhythm Strip Rhythm Strip: Sinus Rhythm Rate: 99 Ectopy: None Physical Exam Narrative GENERAL: cooperative HEENT: Atraumatic; EYES; Anicteric, Normal Conjunctiva NECK; supple, normal thyroid, RESPIRATORY: Diminished to auscultation CARDIOVASCULAR: Regular S1 S2, GI: soft, normoactive bowel sounds, : No Renal angle tenderness; EXTREMITIES: No edema, no clubbing, MUSCULOSKELETAL: no muscle waisting NEURO: Awake; no lateralizing signs. SKIN: No Rash PSYCH; Flat affect Assessment & Plan Assessment/Plan (1) Alcohol abuse with physiological dependence: (2) Transaminitis: PLAN: Patient is a 51-year-old gentleman with history of alcohol dependence as well as polysubstance abuse admitted with acute alcohol withdrawal 1. Acute alcohol withdrawal ? Patient has been admitted to regular nursing floor currently being managed with phenobarb taper ? 08/17/2021 patient has tolerated the phenobarb taper was 2. Acute transaminitis ? Attributed to patient alcohol use monitoring with CMP 3. Hypertension - Blood pressure controlled, home medications continued with dose adjustment as needed -08/17/2021. Blood pressure control is optimal subsequent adjustment made to patient antihypertensive regimen 4. GERD ? On PPI did continue 5. Hypokalemia -Corrected per protocol 6. Tobacco dependence - Counseled on cessation, offered nicotine patch for tobacco cravings 7. History of previous opioid dependence ? Patient underwent rehabilitation and has remained sober since February 2021 8. Low testosterone ? Patient apparently on testosterone supplementation with plans to resume on discharge 9. DVT prophylaxis ? Low risk did encourage ambulation Charges/Coding Visit Charges Inpatient E&M: 14371 Subs Hosp L2
[2021-08-17] MEDS: cloNIDine HCl 0.1 MG Tablet PO (09:18)
[2021-08-17] MEDS: Pantoprazole Sodium 20 MG Tablet PO (09:18)
[2021-08-17] MEDS: amLODIPine 10 MG Tablet PO (12:50)
[2021-08-17 12:52] VITALS: BP 143/94; PULSE 85; RESP 18; TEMP 36.8; O2SAT 98
[2021-08-17 17:56] VITALS: BP 140/90; PULSE 86; RESP 16; TEMP 36.6; O2SAT 98
[2021-08-17 21:15] VITALS: BP 150/101; PULSE 92; RESP 18; TEMP 36.9; O2SAT 97
[2021-08-17] MEDS: DOXEPIN HCL 50 MG CAPSULE PO (21:23)
[2021-08-18 02:35] VITALS: BP 144/104; PULSE 82; RESP 18; TEMP 36.6; O2SAT 97
[2021-08-18] MEDS: Phenobarbital 32.4 MG Tablet 64.8 MG PO ×3 (02:36→13:18)
[2021-08-18 07:22] VITALS: O2SAT 95
--- NOTE | 2021-08-18 07:25 | PCM.DC.SUM ---
Providers Date of Admission: 08/15/21 Primary Care Physician: Talia Primary Care Phys Reason For Visit: ACUTE ETOH WITHDRAWAL Diagnosis Discharge Diagnosis (1) Alcohol abuse with physiological dependence: Status: Acute Code(s): F10.20 - Alcohol dependence, uncomplicated (2) Transaminitis: Status: Acute Code(s): R74.01 - Elevation of levels of liver transaminase levels Medications at Discharge Home Medications testosterone enanthate 225 mg IM QWEEK 06/18/20 doxepin 50 mg PO QHS 07/25/20 gabapentin 600 mg PO 4X/DAY 07/25/20 clonidine HCl 0.1 mg PO DAILY 02/17/21 omeprazole 20 mg PO DAILY 05/29/21 thiamine HCl (vitamin B1) [Vitamin B-1] 100 mg PO DAILYCM 08/15/21 amlodipine 10 mg PO DAILY #60 tab 08/18/21 Hospital Course Summary of Care Provided Minutes Spent on Discharge: 35 Hospital Course: Patient is a 51-year-old gentleman with history of alcohol dependence as well as polysubstance abuse admitted with acute alcohol withdrawal 1. Acute alcohol withdrawal ? Patient has been admitted to regular nursing floor currently being managed with phenobarb taper ? 08/17/2021 patient has tolerated the phenobarb taper was 2. Acute transaminitis ? Attributed to patient alcohol use monitoring with CMP 3. Hypertension - Blood pressure controlled, home medications continued with dose adjustment as needed -08/17/2021. Blood pressure control is optimal subsequent adjustment made to patient antihypertensive regimen 4. GERD ? On PPI did continue 5. Hypokalemia -Corrected per protocol 6. Tobacco dependence - Counseled on cessation, offered nicotine patch for tobacco cravings 7. History of previous opioid dependence ? Patient underwent rehabilitation and has remained sober since February 2021 8. Low testosterone ? Patient apparently on testosterone supplementation with plans to resume on discharge 9. DVT prophylaxis ? Low risk did encourage ambulation Physical Exam Narrative GENERAL: cooperative HEENT: Atraumatic; EYES; Anicteric, Normal Conjunctiva NECK; supple, normal thyroid, RESPIRATORY: Diminished to auscultation CARDIOVASCULAR: Regular S1 S2, GI: soft, normoactive bowel sounds, : No Renal angle tenderness; EXTREMITIES: No edema, no clubbing, MUSCULOSKELETAL: no muscle waisting NEURO: Awake; no lateralizing signs. SKIN: No Rash PSYCH; Flat affect Weight / BMI Weight Weight: 84.4 kg Body Mass Index (BMI) 25.9 ABG / Lab / Microbiology Data Result Diagrams: 08/15/21 15:05 08/16/21 05:11 Microbiology: Microbiology 08/15/21 17:45 Nasal Secretion SARS-CoV-2 Antigen (Rapid) - Final D/C Instructions Discharge Diet: No restrictions Discharge Activity: Return to Normal Activity Call your doctor if you observe: Fever of 101 or Higher, Shortness of breath, Fainting spells and Chest pain Meaningful Use Info Meaningful Use Diagnoses (Choose all that apply): None applicable Discharge Plan Admission Admit Date/Time: 08/15/21 15:57 Attending Provider: Juan Grider Primary Care Provider: Care Physician,No Primary Discharge Orders/Prescriptions Prescriptions: New amlodipine 10 mg Tablet 10 mg PO DAILY Qty: 60 RF: 0 Continued testosterone enanthate 200 MG/ML oil 225 mg IM QWEEK RF: 0 doxepin 50 MG capsule 50 mg PO QHS RF: 0 gabapentin 600 MG tablet 600 mg PO 4X/DAY RF: 0 clonidine HCl 0.1 mg tablet 0.1 mg PO DAILY RF: 0 omeprazole 20 mg Capsule,Delayed Release(Dr/Ec) 20 mg PO DAILY RF: 0 thiamine HCl (vitamin B1) [Vitamin B-1] 100 mg tablet 100 mg PO DAILYCM RF: 0 Referrals / Follow Up: Care Physician,No Primary [Primary Care Provider] - Disposition Disposition (needs filled in before D/C Order can be placed): Home, Self Care Charges/Coding Visit Charges Inpatient E&M: 78443 Disch Hosp
[2021-08-18 09:16] VITALS: BP 139/98; PULSE 81; RESP 18; TEMP 36.4; O2SAT 97
[2021-08-18] MEDS: Gabapentin 600 MG Tablet PO (09:18)
[2021-08-18] MEDS: Pantoprazole Sodium 20 MG Tablet PO (09:18)
[2021-08-18] MEDS: Folic Acid 1 MG Tablet PO (09:18)
[2021-08-18] MEDS: amLODIPine 10 MG Tablet PO (09:18)
[2021-08-18] MEDS: Thiamine Hydrochloride 100 MG Tablet 200 MG PO (09:18)
[2021-08-18] MEDS: Potassium Chloride Oral Tablet 20 MEQ PO (09:18)
[2021-08-18] MEDS: cloNIDine HCl 0.1 MG Tablet PO (09:18)
--- NOTE | 2021-08-18 10:59 | ADDICTION ---
This worker met with pt to revisit his d/c planning. He reports he will seek counseling at [facility] but was not interested in this worker making him an appointment or signing a JANIYA for the facility.
[2021-08-18 12:42] VITALS: BP 115/79; PULSE 76
== END 2021-08-18 13:44 | disposition home or self-care (01) | DRG 773 ==
LOC: ED 15:44 → MS2 16:37
PROVIDERS: Admitting Provider Internal Medicine; Emergency Provider Emergency Medicine; Visit Provider Internal Medicine
DX: F10.230 Alcohol dependence with withdrawal, uncomplicated (principal); F11.21 Opioid dependence, in remission; F10.229 Alcohol dependence with intoxication, unspecified; K70.10 Alcoholic hepatitis without ascites; K21.9 Gastro-esophageal reflux disease without esophagitis; I10 Essential (primary) hypertension; E87.6 Hypokalemia; F41.9 Anxiety disorder, unspecified; G47.30 Sleep apnea, unspecified; E86.0 Dehydration; Y90.6 Blood alcohol level of 120-199 mg/100 ml; F32.A Depression, unspecified
CPT/HCPCS: 36415; 71046; 80048; 80053; 80307; 82077; 83735; 85025; 85610; 87426; 97802; 99284; 99406; A4216

== ENCOUNTER 2021-09-11 12:20 | Inpatient (IN) | payer MEDICAID, SELFPAY ==
[2021-09-11 12:22] VITALS: BP 155/111; PULSE 111; RESP 18; TEMP 36.1; O2SAT 96; BMI 28.3
--- NOTE | 2021-09-11 14:02 | EDS_ITS ---
HPI History of Present Illness Chief Complaint: ETOH Intox Informant: patient Onset/Context/Timing Current Severity: Mild Maximum Severity: Moderate Narrative Narrative: Patient presents requesting help with alcohol detox. Patient states his last drink was earlier this morning between 6 and 7 AM. He states he drinks 6 tall boys every day and then 5 nights a week will also drink a half 1/5 of tequila. He denies any opiate use in the last 7 months. He does admit to some social use of cocaine and marijuana recently. Patient was admitted August 15 to the for alcohol detox. Patient states he stayed sober for maybe 1 or 2 days after discharge. He states he is willing to go to a rehab facility upon discharge to help him stay sober. [facility] Medical History Alcohol abuse Anxiety Depression Erythrocytosis GERD (gastroesophageal reflux disease) Opiate abuse, continuous Opioid abuse Polysubstance abuse Sleep apnea Smoker Home Medications testosterone enanthate 225 mg IM QWEEK 06/18/20 [History Last Taken 05/26/21] doxepin 50 mg PO QHS 07/25/20 [History Last Taken 08/14/21] gabapentin 600 mg PO 4X/DAY 07/25/20 [History Last Taken 08/14/21] amlodipine 5 mg PO DAILY #30 tab 08/18/21 [Rx Last Taken Unknown] clonidine HCl 0.1 mg PO DAILY #30 tab 08/18/21 [Rx Last Taken Unknown] omeprazole 20 mg PO DAILY #30 cap 08/18/21 [Rx Last Taken Unknown] thiamine HCl (vitamin B1) [Vitamin B-1] 100 mg PO DAILYCM #30 tab 08/18/21 [Rx Last Taken Unknown] Allergy/AdvReac Type Severity Reaction Status Date / Time No Known Allergies Allergy Verified 09/11/21 12:21 Surgical History History of ankle surgery Social History household members: significant other Smoking Status: Light Smoker (<10/day) alcohol intake: current alcohol intake frequency: 3 or more drinks per day substance use type: former substance user Date of last use: 02/16/2021-opiates ROS ROS ED Constitutional Constitutional ED: Denies chills or fever(s) Eyes Eyes: Denies change in vision ENT ENT ED: Denies sore throat Cardiovascular Cardiovascular: Denies chest pain Respiratory/Chest Respiratory/Chest: Denies cough or dyspnea Gastrointestinal Gastrointestinal: Denies abdominal pain, diarrhea, nausea or vomiting Genitourinary Genitourinary ED: Denies dysuria Musculoskeletal Musculoskeletal: Denies back pain Integumentary Denies rash Neurologic Neurologic: Denies headache(s) or weakness Psychiatric Psychiatric: Reports anxiety Allergic/Immunologic Allergic/Immunologic ED: Denies urticaria EXAM Physical Exam Const Vital Signs: 09/11/21 12:22 Temperature 96.9 F L Temperature Source Temporal Pulse Rate 111 H Respiratory Rate 18 Blood Pressure 155/111 H Blood Pressure Mean 125 Pulse Ox 96 Oxygen Delivery Method Room Air Positive well nourished and well developed General Appearance ED: well developed HEENT Reports moist mucous membranes Eyes PERRL and EOMs intact bilaterally Neck supple Lymph Lymphatic: no lymphadenopathy noted Chest Wall inspection of chest normal and palpation of chest normal Resp normal respiratory effort and clear to auscultation bilaterally Cardio regular rate and regular rhythm GI soft to palpation and non-tender Neuro oriented x3 Sensorium / Orientation: alert Psych mental status grossly normal Skin Lesions: no lesions Rashes: no rashes MDM MDM MDM Narrative Medical decision making narrative: Lab work for ED addiction medicine obtained. Patient given 1 mg of IV Ativan. Lab Data Labs: Laboratory Results - last 24 hr 09/11/21 14:35 Ur Drug Screen Comment Treatment and Re-Evaluation Comments:: Patient discussed with hospitalist for admission. Lab work pending at this time. Discharge Plan Triage Chief Complaint: ETOH Intox ED Provider: Stacia Long Dx/Rx/DC Orders Clinical Impression: Desire for detoxification Prescriptions: No Action testosterone enanthate 200 MG/ML oil 225 mg IM QWEEK RF: 0 doxepin 50 MG capsule 50 mg PO QHS RF: 0 gabapentin 600 MG tablet 600 mg PO 4X/DAY RF: 0 amlodipine 5 mg tablet 5 mg PO DAILY Qty: 30 RF: 0 clonidine HCl 0.1 mg tablet 0.1 mg PO DAILY Qty: 30 RF: 0 thiamine HCl (vitamin B1) [Vitamin B-1] 100 mg tablet 100 mg PO DAILYCM Qty: 30 RF: 0 omeprazole 20 mg Capsule,Delayed Release(Dr/Ec) 20 mg PO DAILY Qty: 30 RF: 0 Primary Care Provider: Care Physician,No Primary Referrals: Care Physician,No Primary [Primary Care Provider] - Disposition Disposition: Acute Care Hospital [facility]
[2021-09-11] MEDS: LORazepam 2 MG/ML Syringe 1 MG IV (14:30)
[2021-09-11 14:49] LABS: Absolute Lymphocyte Count 1.88 X10^3/uL (0.83-4.51); Absolute Neutrophil Count 3.3 X10^3/uL (2.0-7.7); Basophil# 0.06 X10^3/uL; Eosinophil# 0.07 X10^3/uL; Eosinophils% 1.1 % (0-5); Hematocrit 44.4 % (40-54); Lymphocyte # 1.88 X10^3/ul (0.83-4.51); Lymphocyte % 30.6 % (19-41); Mean Corpuscular Hgb 31.9 pg (27.0-32.0); Mean Corpuscular Volume 88.4 fL (80-94); Mean Platelet Vol. 9.3 fl (6.2-12.0); Monocyte# 0.82 X10^3/uL; Monocyte% 13.4 % (0-10); NRBC Flagged by Analyzer 0 % (0-5); Neutrophil % 53.7 % (47-70); Platelet Count 108 K/mm3 (150-450); RBC Distribution Width SD 42.1 fl (35.1-43.9); Red Blood Count 5.02 M/mm3 (4.6-6.2); White Blood Count 6.1 K/mm3 (4.4-11.0)
[2021-09-11 15:00] LABS: Amphetamine Urine VISTA NEGATIVE (<1000 ng/mL); Barbiturate Urine VISTA NEGATIVE (< 200 ng/mL); Benzodiazepine Urine VISTA NEGATIVE (< 200 ng/mL); Cocaine Urine VISTA POSITIVE (< 300 ng/mL); Ecstacy Urine VISTA NEGATIVE (< 500 ng/mL); Methadone Urine VISTA NEGATIVE (< 300 ng/mL); PCP Urine VISTA NEGATIVE (< 25 ng/mL); THC Urine VISTA POSITIVE (< 50 ng/mL); Vista UDS pH Range 6
[2021-09-11 15:04] LABS: ALB/GLOB Ratio 0.9 RATIO (0.9-2.4); AST(SGOT) 96 U/L (15-37); Alanine Aminotransfer ALT/SGPT 92 U/L (16-61); Albumin, Serum 3.7 g/dL (3.2-5.0); Alkaline Phosphatase 81 U/L (45-117); Anion Gap 10 (5-15); BUN 10 mg/dL (7-18); BUN/Creat Ratio 11.9 RATIO (10-20); Calcium,Total 8.7 mg/dL (8.5-10.1); Chloride 105 mmol/L (98-107); Creatinine, Serum 0.84 mg/dL (0.70-1.30); EST Glomerular Filtration Rate 103 mL/min (>60); Est Glom Filt Rate - Afr Amer 125 mL/min (>60); Estimated Creatinine Clearance 109.84 ml/min; Globulin 4.2 g/dL (2.2-4.2); Glucose 89 mg/dL (74-106); Potassium 3.7 mmol/L (3.5-5.1); Protein, Total 7.9 g/dL (6.4-8.2); Sodium Level 137 mmol/L (136-145)
[2021-09-11 15:05] VITALS: BP 149/101; PULSE 91; RESP 18; TEMP 36.6; O2SAT 99
--- NOTE | 2021-09-11 15:08 | CM.ED ---
Social Work Consult: Substance Abuse Referral source: Self referral due to reason for visit. Met with patient in room. Introduced self and case management social worker role. Patient agreeable to speak with this case management social worker. This case management social worker communicating to patient that patient has been identified as a frequent flyer to the substance abuse program, patient confirms I have been here a lot. In the past patient has not been agreeable to residential. Patient is now verbally agreeing to discharge from [facility] program at [facility] to a residential setting, patient states I have my bags packed. Active support and listening provided. Telephone call to [facility] treatment navigatorFaina. Faina updated on patient admission and verbally being agreeable to residential placement. Dalia Babcock INTRANET SPECIALIST, ARMIN-S
[2021-09-11 15:43] VITALS: BMI 27.1
[2021-09-11 15:51] VITALS: BP 147/107; PULSE 92; RESP 16; TEMP 36.8; O2SAT 99
--- NOTE | 2021-09-11 16:02 | PCM.HP.STD ---
HPI - General General Date of Admission: 09/11/21 Date of Service: 09/11/21 HPI Narrative TRAN CARR, is a 51 M who presents to the emergency room at [facility] requesting services for alcohol detox. Patient was here in August and admitted that he did not follow through with what he was supposed to do after he left the hospital. He resumed drinking, patient denies using any drugs except for occasional coke and occasional weed. Patient has a past history of opiate usage in the past but he denies any recent opiate usage. Patient is having some nervousness and tremors, he is also having some sweats, shakes, and diarrhea. Patient knows that if he comes into the hospital he will have to go into an inpatient program for detox and he is okay with this. Patient states he is supposed to be on a blood pressure medication but does not take it. Patient states his last drink was at 6 AM this morning. He drinks approximately 624 ounce 8% beers daily along with tequila approximately 1 pint a day. Lab work done in the emergency room showed a positive tox screen for cocaine, cannabinoids, and his ethyl alcohol level was 168. Patient's CBC was unremarkable, patient's CMP was remarkable for an AST of 96 and ALT of 92. Patient will be admitted to [place] [id number], orders were entered using the alcohol addiction order set and the addiction order set. Patient will be seen by addiction delinquency prevention social worker. [facility] Medical History Alcohol abuse Anxiety Depression Erythrocytosis GERD (gastroesophageal reflux disease) Hypertension Opiate abuse, continuous Opioid abuse Polysubstance abuse Sleep apnea Smoker Home Medications testosterone enanthate 225 mg IM QWEEK 06/18/20 [History Last Taken 05/26/21] doxepin 50 mg PO QHS 07/25/20 [History Last Taken 09/09/21] gabapentin 600 mg PO 4X/DAY 07/25/20 [History Last Taken 09/10/21] clonidine HCl 0.1 mg PO DAILY #30 tab 08/18/21 [Rx Last Taken 09/09/21] omeprazole 20 mg PO DAILY #30 cap 08/18/21 [Rx Last Taken 09/09/21] thiamine HCl (vitamin B1) [Vitamin B-1] 100 mg PO DAILYCM #30 tab 08/18/21 [Rx Last Taken 09/09/21] amlodipine 5 mg PO DAILY 09/11/21 [History Last Taken 09/09/21] Allergy/AdvReac Type Severity Reaction Status Date / Time No Known Allergies Allergy Verified 09/11/21 12:21 Surgical History History of ankle surgery Social History household members: significant other Smoking Status: Light Smoker (<10/day) alcohol intake: current alcohol intake frequency: 3 or more drinks per day substance use type: former substance user Date of last use: 02/16/2021-opiates ROS Constitutional Constitutional: Reports other Details: Patient complains of shakiness and diaphoresis ; Denies anorexia, change in weight, chills, fever(s), night sweats or weakness Eyes Eyes: Denies blurry vision, change in vision, discharge from eye(s) or eye pain Cardiovascular Cardiovascular: Denies chest pain, claudication, dyspnea on exertion, edema or palpitations Respiratory/Chest Respiratory/Chest: Denies cough, dyspnea, excessive phlegm production, hemoptysis, productive cough, shortness of breath at rest or shortness of breath with exertion Gastrointestinal Gastrointestinal: Reports diarrhea; Denies abdominal pain, constipation, hematemesis, hematochezia, melena, nausea or vomiting Genitourinary Genitourinary: Denies dysuria, hematuria, urinary frequency, urinary hesitancy, urinary incontinence or urinary urgency Musculoskeletal Musculoskeletal: Denies back pain, joint pain, joint stiffness, joint swelling, myalgias or neck pain Neurologic Neurologic: Denies abnormal gait, abnormal speech, dizziness, focal weakness, headache(s), loss of vision, numbness, other visual disturbances, paresthesias, syncope or tingling Psychiatric Psychiatric: Reports anxiety and other Details: Patient complains of shakiness, diaphoresis ; Denies cognitive impairment, depression, irritability, mood swings or suicidal ideation Endocrine Endocrinology: Denies change in body appearance, cold intolerance, excessive sweating, heat intolerance, polydipsia or polyuria Hematologic/Lymphatic Hematologic/Lymphatic: Denies none, anemia, easy bleeding, easy bruising or lymphadenopathy Allergic/Immunologic Allergic/Immunologic: Denies rhinitis, urticaria, eczemia or asthma Vital Signs Vital Signs Vital Signs: 09/11/21 12:22 09/11/21 15:05 09/11/21 15:51 Temperature 96.9 F L 98 F 98.2 F Temperature Source Temporal Temporal Oral Pulse Rate 111 H 91 92 Respiratory Rate 18 18 16 Blood Pressure 155/111 H 149/101 H 147/107 H Blood Pressure Mean 125 117 120 Blood Pressure Source Monitor Blood Pressure Position Sitting Blood Pressure Location Left Arm Pulse Ox 96 99 99 Oxygen Delivery Method Room Air Room Air Room Air Weight Weight: 85.774 kg Body Mass Index (BMI) 27.1 Physical Exam Const alert and oriented x3 Constitutional Narrative: Patient appears mildly nervous and shaky during the time of my examination General Appearance: cooperative, well kempt and well developed Orientation / Consciousness: awake, oriented to person, oriented to place and oriented to time HEENT normocephalic, head/scalp atraumatic, hearing grossly normal bilaterally and moist oral mucous membranes Eyes PERRL, EOMs intact bilaterally and conjunctivae normal Neck nuchal rigidity, supple, no JVD, thyroid normal and no carotid bruits General: trachea midline Resp normal respiratory effort, no retractions, no use of accessory muscles and clear to auscultation bilaterally Auscultation: Negative for rales, rhonchi or wheezes Cardio regular rate, regular rhythm, S1 normal heart sound, S2 normal heart sound, no murmurs, no rub and no gallops GI normal to inspection, nondistended, normoactive bowel sounds, soft to palpation, non-tender and non-distended Extremity normal to inspection and no clubbing, cyanosis or edema Skin no rashes or lesions noted, no wounds and skin turgor normal General Skin Exam: no breakdown Neuro oriented x3, CN's II-XII intact bilaterally, no focal motor deficits and no sensory deficits noted Sensorium / Orientation: awake and alert Speech: speech normal Psych Psych Narrative: Patient appears mildly shaky and nervous Results Lab / Micro Data Result Diagrams: 09/11/21 14:34 09/11/21 14:34 Labs: Laboratory Results - last 24 hr 09/11/21 14:34: WBC 6.1, RBC 5.02, Hgb 16.0, Hct 44.4, MCV 88.4, MCH 31.9, MCHC 36.0, RDW Std Deviation 42.1, RDW Coeff of Mayte 13.0, Plt Count 108 L, MPV 9.3, Immature Gran % (Auto) 0.200, Neut % (Auto) 53.7, Lymph % (Auto) 30.6, [place] % (Auto) 13.4 H, Eos % (Auto) 1.1, Baso % (Auto) 1.0, Absolute Neuts (auto) 3.3, Absolute Lymphs (auto) 1.88, Nucleated RBC % 0 09/11/21 14:34: Sodium 137, Potassium 3.7, Chloride 105, Carbon Dioxide 22.0, Anion Gap 10, BUN 10, Creatinine 0.84, Estim Creat Clear Calc 109.84, Est GFR (MDRD) Af Amer 125, Est GFR (MDRD) Non-Af 103, BUN/Creatinine Ratio 11.9, Glucose 89, Calcium 8.7, Total Bilirubin 0.50, AST 96 H, ALT 92 H, Alkaline Phosphatase 81, Total Protein 7.9, Albumin 3.7, Globulin 4.2, Albumin/Globulin Ratio 0.9 09/11/21 14:34: Ethyl Alcohol 168.0 09/11/21 14:35: Urine Opiates Screen NEGATIVE, Urine Methadone Screen NEGATIVE, Ur Barbiturates Screen NEGATIVE, Ur Phencyclidine Scrn NEGATIVE, Ur Amphetamines Screen NEGATIVE, U Methamphetamin-MDMA NEGATIVE, U Benzodiazepines Scrn NEGATIVE, Urine Cocaine Screen POSITIVE H, U Cannabinoids Screen POSITIVE H, Ur Drug Screen Comment Assessment & Plan Assessment/Plan (1) Alcohol use disorder: PLAN: 1. Acute alcohol withdrawal-patient was admitted to [facility], orders were entered using the addiction order set in the alcohol withdrawal order set. Patient will be seen by addiction delinquency prevention social worker. He will need inpatient detox placement. He is agreeable to this. #2 essential hypertension-patient was placed on amlodipine #3 chronic alcoholism-patient will be seen by addiction delinquency prevention social worker #4 elevated liver enzymes-probably secondary to excessive alcohol intake-I do not feel the patient has alcoholic hepatitis at this time #5 multisubstance abuse-patient's talk screen was positive for cocaine and cannabinoids, complicates treatment, recovery, and prognosis. #6 GERD-patient will be placed on Protonix Charges/Coding Visit Charges Inpatient E&M: 38762 Init Hosp L3
[2021-09-11] MEDS: Gabapentin 400 MG Capsule PO (16:54)
[2021-09-11] MEDS: Phenobarbital 32.4 MG Tablet 64.8 MG PO ×2 (16:54→20:53)
[2021-09-11] MEDS: amLODIPine 5 MG Tablet PO (16:54)
[2021-09-11 20:44] VITALS: BP 154/106; PULSE 98; RESP 16; TEMP 37.1; O2SAT 95
[2021-09-11] MEDS: DOXEPIN HCL 50 MG CAPSULE PO (20:52)
[2021-09-11] MEDS: LORazepam 1 MG Tablet 2 MG PO (20:53)
[2021-09-12] MEDS: Phenobarbital 32.4 MG Tablet 64.8 MG PO ×6 (00:53→20:53)
[2021-09-12] MEDS: hydrOXYzine PAM 25 MG Capsule 50 MG PO ×2 (00:55→08:58)
[2021-09-12 01:00] VITALS: BP 149/98; PULSE 98; RESP 16; TEMP 36.9; O2SAT 98
[2021-09-12 05:00] VITALS: BP 155/99; PULSE 78; RESP 16; TEMP 36.6; O2SAT 100
--- NOTE | 2021-09-12 07:06 | PN.HOSP_ITS ---
Subjective Subjective Patient is a 51-year-old gentleman with history of alcohol dependence who was recently discharged following stay for medical stabilization he relapsed after his discharge presented back to the ED in acute alcohol withdrawal with desire to undergo medical stabilization 1 more time Objective Data Objective Data Vital Signs: Vital Signs Temp Pulse Resp BP Pulse Ox 97.8 F 78 16 155/99 H 100 09/12/21 05:00 09/12/21 05:00 09/12/21 05:00 09/12/21 05:00 09/12/21 05:00 Oxygen Delivery Method Room Air Weight: 85.774 kg Body Mass Index (BMI) 27.1 Intake & Output: Intake and Output for Last 24 Hours 09/10/21 09/11/21 09/12/21 23:59 23:59 23:59 Intake Total 400 / 400 Balance 400 / 400 Lab / Micro Data Result Diagrams: 09/11/21 14:34 09/11/21 14:34 Labs: Laboratory Results - last 24 hr 09/11/21 14:34: WBC 6.1, RBC 5.02, Hgb 16.0, Hct 44.4, MCV 88.4, MCH 31.9, MCHC 36.0, RDW Std Deviation 42.1, RDW Coeff of Mayte 13.0, Plt Count 108 L, MPV 9.3, Immature Gran % (Auto) 0.200, Neut % (Auto) 53.7, Lymph % (Auto) 30.6, [place] % (Auto) 13.4 H, Eos % (Auto) 1.1, Baso % (Auto) 1.0, Absolute Neuts (auto) 3.3, Absolute Lymphs (auto) 1.88, Nucleated RBC % 0 09/11/21 14:34: Sodium 137, Potassium 3.7, Chloride 105, Carbon Dioxide 22.0, Anion Gap 10, BUN 10, Creatinine 0.84, Estim Creat Clear Calc 109.84, Est GFR (MDRD) Af Amer 125, Est GFR (MDRD) Non-Af 103, BUN/Creatinine Ratio 11.9, Glucose 89, Calcium 8.7, Total Bilirubin 0.50, AST 96 H, ALT 92 H, Alkaline Phosphatase 81, Total Protein 7.9, Albumin 3.7, Globulin 4.2, Albumin/Globulin Ratio 0.9 09/11/21 14:34: Ethyl Alcohol 168.0 09/11/21 14:35: Urine Opiates Screen NEGATIVE, Urine Methadone Screen NEGATIVE, Ur Barbiturates Screen NEGATIVE, Ur Phencyclidine Scrn NEGATIVE, Ur Amphetamines Screen NEGATIVE, U Methamphetamin-MDMA NEGATIVE, U Benzodiazepines Scrn NEGATIVE, Urine Cocaine Screen POSITIVE H, U Cannabinoids Screen POSITIVE H, Ur Drug Screen Comment Physical Exam Narrative GENERAL: cooperative HEENT: Atraumatic; EYES; Anicteric, Normal Conjunctiva NECK; supple, normal thyroid, RESPIRATORY: Diminished to auscultation CARDIOVASCULAR: Regular S1 S2, GI: soft, normoactive bowel sounds, : No Renal angle tenderness; EXTREMITIES: No edema, no clubbing, MUSCULOSKELETAL: no muscle wasting NEURO: Awake; no lateralizing signs. SKIN: No Rash PSYCH; Flat affect Assessment & Plan Assessment/Plan (1) Alcohol use disorder: PLAN: Patient is a 51-year-old gentleman with history of alcohol dependence who was recently discharged following stay for medical stabilization he relapsed after his discharge presented back to the ED in acute alcohol withdrawal with desire to undergo medical stabilization 1 more time 1. Acute alcohol withdrawal ? Patient has been admitted to regular nursing floor currently being managed with phenobarb taper 2. Hypertension - Blood pressure controlled, home medications continued with dose adjustment as needed 3. GERD ? On PPI did continue 4. Tobacco dependence - Counseled on cessation, offered nicotine patch for tobacco cravings 5. History of previous opioid dependence ? Patient underwent rehabilitation and has remained sober since February 2021 6. Low testosterone ? Patient apparently on testosterone supplementation with plans to resume on discharge 7. DVT prophylaxis ? Low risk did encourage ambulation Charges/Coding Visit Charges Inpatient E&M: 62346 Subs Hosp L2
[2021-09-12] MEDS: Gabapentin 400 MG Capsule PO ×3 (08:54→16:21)
[2021-09-12] MEDS: Pantoprazole Sodium 20 MG Tablet PO (08:54)
[2021-09-12] MEDS: Folic Acid 1 MG Tablet PO (08:54)
[2021-09-12] MEDS: amLODIPine 5 MG Tablet PO ×2 (08:54→22:29)
[2021-09-12] MEDS: Thiamine Hydrochloride 100 MG Tablet PO (08:54)
[2021-09-12 09:02] VITALS: BP 147/88; PULSE 86; RESP 16; TEMP 36.5; O2SAT 97
[2021-09-12 11:27] VITALS: BP 148/100; PULSE 87; RESP 16; TEMP 36.5; O2SAT 98
--- NOTE | 2021-09-12 11:51 | ADDICTION ---
Addendum entered by Faina Herrera 09/12/21 12:14: client will be picked up on 09/14/21 not 09/12/21 Original Note: This commercial lines underwriter met with PT to conduct ASAM, MSE, AUDIT assessments and to plan for d/c. PT A+Ox4 and participated actively. All assessments completed and placed in PT's chart. PT plans to f/u with [facility] for follow-up treatment services. [facility] will provide transportation post d/c from [facility]. The plan is for discharge 09/12/21 at 11am.
--- NOTE | 2021-09-12 13:34 | CHAPLAIN ---
Type of Pastoral Visit _x__ Initial Visit ___ Follow-up Visit ___ On-call Visit ___ General Patient Visit ___ Spiritual Assessment ___ Family Conference ___ Bereavement ___ Rapid Response ___ Code Blue ___ Other (describe below) Pastoral Care Referral From ___ Patient ___ Family ___ Nurse ___ Physician ___ Collar Padder Blindstitch ___ Tailor Fitter ___ Other (describe below) Sacrament/Intervention ___ Active listening ___ Anointing ___ Restoration ___ Bereavement ___ Communion ___ Lidia exploration ___ ___ Life review ___ Prayer ___ Reconciliation ___ Sacrament of Sick _x__ Supportive presence ___ Wedding ___ Other (describe below) Pastoral Comments patient has been seen before in previous admission; pt is awake but states he is not up for talking right now and no disrespect but maybe you could come back another time
[2021-09-12 15:27] VITALS: BP 149/108; PULSE 89; RESP 16; TEMP 36.6; O2SAT 97
[2021-09-12] MEDS: Acetaminophen 325 MG Tablet 650 MG PO ×2 (16:42→20:53)
[2021-09-12 20:46] VITALS: BP 143/101; PULSE 77; RESP 16; TEMP 36.6; O2SAT 98
[2021-09-12] MEDS: LORazepam 1 MG Tablet 2 MG PO (20:53)
[2021-09-12] MEDS: DOXEPIN HCL 50 MG CAPSULE PO (20:53)
[2021-09-13] MEDS: Phenobarbital 32.4 MG Tablet 64.8 MG PO ×6 (01:02→21:01)
[2021-09-13 02:00] VITALS: BP 133/93; PULSE 82; RESP 16; TEMP 36.6; O2SAT 100
[2021-09-13] MEDS: Pantoprazole Sodium 20 MG Tablet PO (07:57)
[2021-09-13] MEDS: Gabapentin 400 MG Capsule PO ×3 (07:57→16:34)
[2021-09-13] MEDS: Thiamine Hydrochloride 100 MG Tablet PO (07:57)
[2021-09-13] MEDS: Folic Acid 1 MG Tablet PO (07:57)
[2021-09-13] MEDS: Acetaminophen 325 MG Tablet 650 MG PO (08:00)
[2021-09-13] MEDS: amLODIPine 10 MG Tablet PO (08:02)
[2021-09-13 09:34] VITALS: BP 146/110; PULSE 80; RESP 16; TEMP 36.6; O2SAT 100
--- NOTE | 2021-09-13 10:35 | PCM.PN.HOSP ---
Subjective Subjective Patient seen symptoms well controlled. Plan is for patient to be discharged to an inpatient rehab unit once bed becomes available Objective Data Objective Data Vital Signs: Vital Signs Temp Pulse Resp BP Pulse Ox 98 F 80 16 146/110 H 100 09/13/21 09:34 09/13/21 09:34 09/13/21 09:34 09/13/21 09:34 09/13/21 09:34 Oxygen Delivery Method Room Air Weight: 85.774 kg Body Mass Index (BMI) 27.1 Intake & Output: Intake and Output for Last 24 Hours 09/11/21 09/12/21 09/13/21 23:59 23:59 23:59 Intake Total 400 / 400 1000 / 1000 Balance 400 / 400 1000 / 1000 Lab / Micro Data Result Diagrams: 09/11/21 14:34 09/11/21 14:34 Physical Exam Narrative GENERAL: cooperative HEENT: Atraumatic; EYES; Anicteric, Normal Conjunctiva NECK; supple, normal thyroid, RESPIRATORY: Diminished to auscultation CARDIOVASCULAR: Regular S1 S2, GI: soft, normoactive bowel sounds, : No Renal angle tenderness; EXTREMITIES: No edema, no clubbing, MUSCULOSKELETAL: no muscle wasting NEURO: Awake; no lateralizing signs. SKIN: No Rash PSYCH; Flat affect Const alert and oriented x3 Constitutional Narrative: Patient appears mildly nervous and shaky during the time of my examination General Appearance: cooperative, well kempt and well developed Orientation / Consciousness: awake, oriented to person, oriented to place and oriented to time HEENT normocephalic, head/scalp atraumatic, hearing grossly normal bilaterally and moist oral mucous membranes Eyes PERRL, EOMs intact bilaterally and conjunctivae normal Neck nuchal rigidity, supple, no JVD, thyroid normal and no carotid bruits General: trachea midline Resp normal respiratory effort, no retractions, no use of accessory muscles and clear to auscultation bilaterally Auscultation: Negative for rales, rhonchi or wheezes Cardio regular rate, regular rhythm, S1 normal heart sound, S2 normal heart sound, no murmurs, no rub and no gallops GI normal to inspection, nondistended, normoactive bowel sounds, soft to palpation, non-tender and non-distended Extremity normal to inspection and no clubbing, cyanosis or edema Skin no rashes or lesions noted, no wounds and skin turgor normal General Skin Exam: no breakdown Neuro oriented x3, CN's II-XII intact bilaterally, no focal motor deficits and no sensory deficits noted Sensorium / Orientation: awake and alert Speech: speech normal Psych Psych Narrative: Patient appears mildly shaky and nervous Assessment & Plan Assessment/Plan (1) Alcohol use disorder: PLAN: Patient is a 51-year-old gentleman with history of alcohol dependence who was recently discharged following stay for medical stabilization he relapsed after his discharge presented back to the ED in acute alcohol withdrawal with desire to undergo medical stabilization 1 more time 1. Acute alcohol withdrawal ? Patient has been admitted to regular nursing floor currently being managed with phenobarb taper 2. Hypertension - Blood pressure controlled, home medications continued with dose adjustment as needed 3. GERD ? On PPI did continue 4. Tobacco dependence - Counseled on cessation, offered nicotine patch for tobacco cravings 5. History of previous opioid dependence ? Patient underwent rehabilitation and has remained sober since February 2021 6. Low testosterone ? Patient apparently on testosterone supplementation with plans to resume on discharge 7. DVT prophylaxis ? Low risk did encourage ambulation
--- NOTE | 2021-09-13 10:47 | PN.HOSP_ITS ---
Subjective Subjective Patient seen has tolerated protocol well so far. Plans for patient to be discharged to an inpatient rehab unit once bed is obtained Objective Data Objective Data Vital Signs: Vital Signs Temp Pulse Resp BP Pulse Ox 98 F 80 16 146/110 H 100 09/13/21 09:34 09/13/21 09:34 09/13/21 09:34 09/13/21 09:34 09/13/21 09:34 Oxygen Delivery Method Room Air Weight: 85.774 kg Body Mass Index (BMI) 27.1 Intake & Output: Intake and Output for Last 24 Hours 09/11/21 09/12/21 09/13/21 23:59 23:59 23:59 Intake Total 400 / 400 1000 / 1000 Balance 400 / 400 1000 / 1000 Lab / Micro Data Result Diagrams: 09/11/21 14:34 09/11/21 14:34 Physical Exam Narrative GENERAL: cooperative HEENT: Atraumatic; EYES; Anicteric, Normal Conjunctiva NECK; supple, normal thyroid, RESPIRATORY: Diminished to auscultation CARDIOVASCULAR: Regular S1 S2, GI: soft, normoactive bowel sounds, : No Renal angle tenderness; EXTREMITIES: No edema, no clubbing, MUSCULOSKELETAL: no muscle wasting NEURO: Awake; no lateralizing signs. SKIN: No Rash PSYCH; Flat affect Assessment & Plan Assessment/Plan (1) Alcohol use disorder: PLAN: Patient is a 51-year-old gentleman with history of alcohol dependence who was recently discharged following stay for medical stabilization he relapsed after his discharge presented back to the ED in acute alcohol with drawal with desire to undergo medical stabilization 1 more time 1. Acute alcohol withdrawal ? Patient has been admitted to regular nursing floor currently being managed with phenobarb taper 2. Hypertension - Blood pressure controlled, home medications continued with dose adjustment as needed 3. GERD ? On PPI did continue 4. Tobacco dependence - Counseled on cessation, offered nicotine patch for tobacco cravings 5. History of previous opioid dependence ? Patient underwent rehabilitation and has remained sober since February 2021 6. Low testosterone ? Patient apparently on testosterone supplementation with plans to resume on discharge 7. DVT prophylaxis ? Low risk did encourage ambulation 8. Thrombocytopenia ?Secondary to chronic alcohol dependence we will continue to monitor Charges/Coding Visit Charges Inpatient E&M: 74107 Subs Hosp L2
[2021-09-13 13:05] VITALS: BP 123/94; PULSE 102; RESP 16; TEMP 36.6; O2SAT 99
[2021-09-13 20:00] VITALS: BP 141/96; PULSE 91; RESP 18; TEMP 36.7
[2021-09-13] MEDS: DOXEPIN HCL 50 MG CAPSULE PO (21:00)
[2021-09-13] MEDS: hydrOXYzine PAM 25 MG Capsule 50 MG PO (21:01)
[2021-09-13] MEDS: Gabapentin 300 MG Capsule PO (21:01)
[2021-09-14] MEDS: Phenobarbital 32.4 MG Tablet 64.8 MG PO ×2 (01:05→06:49)
[2021-09-14 02:00] VITALS: BP 128/100; PULSE 60; RESP 18; TEMP 36.4; O2SAT 99
[2021-09-14 06:59] VITALS: BP 126/99
--- NOTE | 2021-09-14 07:36 | DS.PCM_ITS ---
Providers Date of Admission: 09/11/21 Primary Care Physician: No Primary Care Phys Reason For Visit: ALCOHOL WITHDRAWAL Diagnosis Discharge Diagnosis (1) Alcohol use disorder: Status: Chronic Medications at Discharge Home Medications testosterone enanthate 225 mg IM QWEEK 06/18/20 gabapentin 600 mg PO 4X/DAY 07/25/20 omeprazole 20 mg PO DAILY #30 cap 08/18/21 thiamine HCl (vitamin B1) [Vitamin B-1] 100 mg PO DAILYCM #30 tab 08/18/21 acetaminophen [Tylenol] 650 mg PO Q4H PRN PRN #0 tab 09/14/21 amlodipine 10 mg PO DAILY #0 tab 09/14/21 clonidine HCl 0.1 mg PO BID #30 tab 09/14/21 Hospital Course Summary of Care Provided Minutes Spent on Discharge: 35 Hospital Course: Patient is a 51-year-old gentleman with history of alcohol de pendence who was recently discharged following stay for medical stabilization he relapsed after his discharge presented back to the ED in acute alcohol withdrawal with desire to undergo medical stabilization 1 more time 1. Acute alcohol withdrawal ? Patient has been admitted to regular nursing floor currently being managed with phenobarb taper 2. Hypertension - Blood pressure controlled, home medications continued with dose adjustment as needed 3. GERD ? On PPI did continue 4. Tobacco dependence - Counseled on cessation, offered nicotine patch for tobacco cravings 5. History of previous opioid dependence ? Patient underwent rehabilitation and has remained sober since February 2021 6. Low testosterone ? Patient apparently on testosterone supplementation with plans to resume on discharge 7. DVT prophylaxis ? Low risk did encourage ambulation 8. Thrombocytopenia ?Secondary to chronic alcohol dependence we will continue to monitor Physical Exam Narrative GENERAL: cooperative HEENT: Atraumatic; EYES; Anicteric, Normal Conjunctiva NECK; supple, normal thyroid, RESPIRATORY: Diminished to auscultation CARDIOVASCULAR: Regular S1 S2, GI: soft, normoactive bowel sounds, : No Renal angle tenderness; EXTREMITIES: No edema, no clubbing, MUSCULOSKELETAL: no muscle wasting NEURO: Awake; no lateralizing signs. SKIN: No Rash PSYCH; Flat affect Weight / BMI Weight Weight: 85.774 kg Body Mass Index (BMI) 27.1 ABG / Lab / Microbiology Data Result Diagrams: 09/11/21 14:34 09/11/21 14:34 D/C Instructions Discharge Diet: No restrictions Discharge Activity: Return to Normal Activity Call your doctor if you observe: Fever of 101 or Higher, Shortness of breath, Fa inting spells and Chest pain Meaningful Use Info Meaningful Use Diagnoses (Choose all that apply): None applicable Discharge Plan Admission Admit Date/Time: 09/11/21 15:37 Attending Provider: Juan Grider Primary Care Provider: Care Physician,No Primary Discharge Orders/Prescriptions Prescriptions: New acetaminophen [Tylenol] 325 mg Tablet 650 mg PO Q4H PRN PRN (Reason: Pain Score 1-10) Qty: 0 RF: 0 Continued testosterone enanthate 200 MG/ML oil 225 mg IM QWEEK RF: 0 gabapentin 600 MG tablet 600 mg PO 4X/DAY RF: 0 thiamine HCl (vitamin B1) [Vitamin B-1] 100 mg tablet 100 mg PO DAILYCM Qty: 30 RF: 0 omeprazole 20 mg Capsule,Delayed Release(Dr/Ec) 20 mg PO DAILY Qty: 30 RF: 0 Changed clonidine HCl 0.1 mg tablet 0.1 mg PO BID Qty: 30 RF: 0 amlodipine 5 mg tablet 10 mg PO DAILY Qty: 0 RF: 0 Discontinued doxepin 50 MG capsule 50 mg PO QHS RF: 0 Referrals / Follow Up: Care Physician,No Primary [Primary Care Provider] - Disposition Disposition (needs filled in before D/C Order can be placed): Home, Self Care Charges/Coding Visit Charges Inpatient E&M: 96426 Disch Hosp
[2021-09-14] MEDS: Pantoprazole Sodium 20 MG Tablet PO (08:16)
[2021-09-14] MEDS: amLODIPine 10 MG Tablet PO (08:16)
[2021-09-14] MEDS: Folic Acid 1 MG Tablet PO (08:16)
[2021-09-14] MEDS: Thiamine Hydrochloride 100 MG Tablet PO (08:16)
[2021-09-14] MEDS: Gabapentin 400 MG Capsule PO ×2 (08:17→11:06)
== END 2021-09-14 11:40 | disposition home or self-care (01) | DRG 775 ==
LOC: ED 14:47 → MS3 15:50
PROVIDERS: Admitting Provider Internal Medicine; Emergency Provider Emergency Medicine; Visit Provider Internal Medicine
DX: F10.239 Alcohol dependence with withdrawal, unspecified (principal); D69.6 Thrombocytopenia, unspecified; F17.200 Nicotine dependence, unspecified, uncomplicated; K21.9 Gastro-esophageal reflux disease without esophagitis; I10 Essential (primary) hypertension; G47.30 Sleep apnea, unspecified; F12.90 Cannabis use, unspecified, uncomplicated; F32.A Depression, unspecified
CPT/HCPCS: 80053; 80307; 82077; 85025; 99283; 99406; A4216

== ENCOUNTER 2022-07-25 02:36 | Observation (INO) | payer MEDICAID, SELFPAY ==
[2022-07-25 02:39] VITALS: BP 147/105; PULSE 82; RESP 16; TEMP 36.6; O2SAT 99; BMI 28.7
--- NOTE | 2022-07-25 03:30 | EDS_ITS ---
HPI History of Present Illness Chief Complaint: Substance Abuse Informant: patient Onset/Context/Timing Onset: Today Context: Gradual Onset Timing: Continuous Worsened by: Nothing Relieved by: Nothing Associated Symptoms Associated Symptoms: Positive for palpatations; Negative for vomiting*, diarrhea*, fever*, rash*, seizure, tremor, suicidal ideation or homicidal ideation Narrative Narrative: Patient presents requesting detox from fentanyl and alcohol. Patient states he normally drinks a pint of tequila and approximately 6 tall boys per day. Patient states he smokes a half a gram of fentanyl. Patient states his last use of fentanyl was 7 PM. Patient states his last drink of alcohol was approximately 1 to 2 hours prior to arrival. Patient states he went through detox approximately 1 year ago and was clean for 6 months then started using again. Patient admits to some palpitations. Patient denies any nausea or vomiting. Patient denies any fevers or chills. Patient denies any suicidal homicidal ideations. PFSH PFSH Medical History Alcohol abuse Anxiety Depression Erythrocytosis GERD (gastroesophageal reflux disease) Hypertension Opiate abuse, continuous Opioid abuse Polysubstance abuse Sleep apnea Smoker Medical History no medical history Home Medications testosterone enanthate 200 mg/mL intramuscular oil 225 mg IM QWEEK low testosterone 06/18/20 [History Last Taken 05/26/21] gabapentin 600 mg tablet 600 mg PO 4X/DAY neuropathy 07/25/20 [History Last Taken 09/10/21] omeprazole 20 mg capsule,delayed release 20 mg PO DAILY GERD #30 caps 08/18/21 [Rx Last Taken 09/09/21] amlodipine 5 mg tablet 10 mg PO DAILY Check with primary doctor #0 tabs 09/14/21 [Rx Last Taken 09/09/21] clonidine HCl 0.1 mg tablet 0.1 mg PO BID anxiety #30 tabs 09/14/21 [Rx Last Taken 09/09/21] Allergy/AdvReac Type Severity Reaction Status Date / Time No Known Allergies Allergy Verified 07/25/22 02:37 Surgical History History of ankle surgery Social History household members: significant other Smoking Status: Light Smoker (<10/day) alcohol intake: current alcohol intake frequency: 3 or more drinks per day substance use type: former substance user Date of last use: 02/16/2021-opiates ROS ROS ED Constitutional Constitutional ED: Denies chills or fever(s) Eyes Eyes: Denies blurry vision or change in vision ENT ENT ED: Denies rhinorrhea or sore throat Cardiovascular Cardiovascular: Reports palpitations; Denies chest pain Respiratory/Chest Respiratory/Chest: Denies cough or dyspnea Gastrointestinal Gastrointestinal: Denies nausea or vomiting Genitourinary Genitourinary ED: Denies dysuria or hematuria Musculoskeletal Musculoskeletal: Reports back pain and neck pain Integumentary Denies abscess or rash Neurologic Neurologic: Reports headache(s); Denies weakness Allergic/Immunologic Allergic/Immunologic ED: Denies mouth swelling or urticaria EXAM Physical Exam Const Vital Signs: 07/25/22 02:39 Temperature 97.8 F Temperature Source Temporal Pulse Rate 82 Respiratory Rate 16 Blood Pressure 147/105 H Blood Pressure Mean 119 Pulse Ox 99 Oxygen Delivery Method Room Air Positive well nourished and well developed General Appearance ED: well developed and NAD HEENT Reports moist mucous membranes Neck supple and no JVD Resp normal respiratory effort and clear to auscultation bilaterally Cardio regular rate, regular rhythm and no murmurs GI normal to inspection, nondistended, normoactive bowel sounds, soft to palpation and non-tender Palpation: soft Extremity normal to inspection General Extremety ED: Negative for edema or tenderness General Extremity: Negative for edema Neuro oriented x3, CN's II-XII intact bilaterally and no sensory deficits noted Sensorium / Orientation: alert Motor Exam: strength 5/5 throughout Psych mental status grossly normal Skin no rashes or lesions noted MDM MDM MDM Narrative Medical decision making narrative: Basic labs were obtained. Case was discussed with the hospitalist. He will admit the patient to the hospital. Patient understood and was agreeable with the plan. All questions were answered. Lab Data Attestation: I reviewed the patient's lab results. Labs: Laboratory Results - last 24 hr 07/25/22 07/25/22 03:40 03:42 WBC 7.5 RBC 5.14 Hgb 15.7 Hct 45.7 MCV 88.9 MCH 30.5 MCHC 34.4 RDW Std Deviation 40.3 RDW Coeff of [place] 12.2 Plt Count 253 MPV 9.4 Immature Gran % (Auto) 0.100 Neut % (Auto) 48.6 Lymph % (Auto) 36.1 [place] % (Auto) 11.0 H Eos % (Auto) 3.1 Baso % (Auto) 1.1 H Absolute Neuts (auto) 3.6 Absolute Lymphs (auto) 2.70 Nucleated RBC % 0 Ur Drug Screen Comment Discharge Plan Dx/Rx/DC Orders Clinical Impression: Opiate withdrawal, Alcohol withdrawal Disposition Disposition: Acute Care Hospital [facility]
[2022-07-25 03:48] LABS: Bacteria 0 SEEN /hpf (None Seen); Mucous, Urine 0 SEEN /hpf (<or=2+); Red Blood Cells-Urine 0 SEEN /hpf (0-5); Squamous Epithelial Cells - UA 0 SEEN /hpf (0-5); White Blood Cells 0 SEEN /hpf (0-5)
[2022-07-25 03:49] LABS: Absolute Neutrophil Count 3.6 X10^3/uL (2.0-7.7); Basophil# 0.08 X10^3/uL; Basophil% 1.1 % (0-1); Eosinophil# 0.23 X10^3/uL; Eosinophils% 3.1 % (0-5); Hematocrit 45.7 % (40-54); Hemoglobin 15.7 g/dL (13.0-16.5); Lymphocyte % 36.1 % (19-41); Mean Corp Hgb Conc 34.4 g/dL (32-36); Mean Corpuscular Hgb 30.5 pg (27.0-32.0); Mean Corpuscular Volume 88.9 fL (80-94); Mean Platelet Vol. 9.4 fl (6.2-12.0); Monocyte# 0.82 X10^3/uL; NRBC Flagged by Analyzer 0 % (0-5); Neutrophil # 3.64 X10^3/uL (2.7-7.7); Neutrophil % 48.6 % (47-70); Platelet Count 253 K/mm3 (150-450); RBC Distribution Width CV 12.2 % (11.6-14.6); RBC Distribution Width SD 40.3 fl (35.1-43.9); Red Blood Count 5.14 M/mm3 (4.6-6.2); White Blood Count 7.5 K/mm3 (4.4-11.0)
[2022-07-25 03:51] LABS: Color, Urine Yellow (Yellow); Glucose, Dipstick Normal (Normal); Ketone-Dipstick Negative (Negative); Leukocyte Esterase-Dipstick Negative /ul (Negative); Nitrite-Dipstick Negative (Negative); Occult Blood-Urine Negative /ul (Negative); Protein-Dipstick Negative (Negative); Specific Gravity, Urine 1.015 (1.002-1.030); Urine Bilirubin Dipstick Negative (Negative); Urine Clarity Clear (Clear); Urine Urobilinogen Normal (Normal)
[2022-07-25 04:03] LABS: Amphetamine Urine VISTA NEGATIVE (<1000 ng/mL); Barbiturate Urine VISTA NEGATIVE (< 200 ng/mL); Benzodiazepine Urine VISTA NEGATIVE (< 200 ng/mL); Cocaine Urine VISTA NEGATIVE (< 300 ng/mL); Ecstacy Urine VISTA NEGATIVE (< 500 ng/mL); Methadone Urine VISTA NEGATIVE (< 300 ng/mL); PCP Urine VISTA NEGATIVE (< 25 ng/mL); THC Urine VISTA NEGATIVE (< 50 ng/mL); Vista UDS pH Range 4
--- NOTE | 2022-07-25 04:05 | HP.PCM.HOS_ITS ---
HPI - General General Date of Admission: 07/25/22 Date of Service: 07/25/22 Chief Complaint: Desire for detoxification HPI Narrative TRAN CARR, is a 52 M with a significant history of hypertension; alcoholism; tobacco abuse; and opioid abuse who presented to the emergency department for help with detoxification. Opioid abuse: History of choice is fentanyl/heroin that he smokes. He smokes about half a gram per day. All in all he has been using for about 2 and half years. He was clean for a year and resumed use about 2 and half months ago. Last time he used was few hours before presentation. Alcoholism: He drinks about a pint of tequila daily. Also he drinks about 6 tall boys per day. Last time he used was about an hour to 2 hours before presentation. He has been drinking since about age 21 years. Also in the past he used cocaine and marijuana. He denies any withdrawal symptoms at this time. COUNT INCLUDES THE [facility] Medical History Alcohol abuse Anxiety Depression Erythrocytosis GERD (gastroesophageal reflux disease) Hypertension Opiate abuse, continuous Opioid abuse Polysubstance abuse Sleep apnea Smoker Medical History no medical history Home Medications testosterone enanthate 200 mg/mL intramuscular oil 225 mg IM QWEEK low testosterone 06/18/20 [History Last Taken 05/26/21] gabapentin 600 mg tablet 600 mg PO 4X/DAY neuropathy 07/25/20 [History Last Taken 09/10/21] omeprazole 20 mg capsule,delayed release 20 mg PO DAILY GERD #30 caps 08/18/21 [Rx Last Taken 09/09/21] amlodipine 5 mg tablet 10 mg PO DAILY Check with primary doctor #0 tabs 09/14/21 [Rx Last Taken 09/09/21] clonidine HCl 0.1 mg tablet 0.1 mg PO BID anxiety #30 tabs 09/14/21 [Rx Last Taken 09/09/21] Allergy/AdvReac Type Severity Reaction Status Date / Time No Known Allergies Allergy Verified 07/25/22 02:37 Family History other other (Denies knowledge of maternal or paternal medical history.) Surgical History History of ankle surgery Social History household members: significant other Smoking Status: Light Smoker (<10/day) alcohol intake: current alcohol intake frequency: 3 or more drinks per day substance use type: former substance user Date of last use: 02/16/2021-opiates ROS ROS Narrative Pertinent positives and pertinent negatives as noted in HPI. All other systems were reviewed and are negative Vital Signs Vital Signs Vital Signs: 07/25/22 02:39 Temperature 97.8 F Temperature Source Temporal Pulse Rate 82 Respiratory Rate 16 Blood Pressure 147/105 H Blood Pressure Mean 119 Pulse Ox 99 Oxygen Delivery Method Room Air Weight Weight: 90.718 kg Body Mass Index (BMI) 28.7 Physical Exam Narrative Physical exam: General: Well-nourished, well-developed. Head: Normocephalic, atraumatic, no tenderness Eyes: Vision is grossly intact. EOMI ENT, no trauma, moist mucous membranes, no rhinorrhea Neck: Nontender, No thyromegaly. CVS: Regular rate and rhythm. S1-S2 present. No murmur, gallop or rub. Respiratory : clear to auscultation bilaterally, chest wall nontender, no wheezing Abdomen: Soft, nontender, nondistended, normal bowel sounds, no masses : Deferred Back: Nontender, no CVA tenderness, no midline spinal tenderness, deformities, step-offs Extremities: Nontender full range of motion, no trauma Skin: Normal color, no trauma, abrasions Neuro: Alert, oriented, cranial nerves II through XII grossly intact. Psychiatry: Normal mood. Normal affect. Not depressed. Not anxious. Results Lab / Micro Data Result Diagrams: 07/25/22 03:42 07/25/22 03:42 Labs: Laboratory Results - last 24 hr 07/25/22 03:40: Urine Color Yellow, Urine Clarity Clear, Urine pH 6.0, Ur Specific [place] 1.015, Urine Protein Negative, Urine Glucose (UA) Normal, Urine Ketones Negative, Urine Occult Blood Negative, Urine Nitrite Negative, Urine Bilirubin Negative, Urine Urobilinogen Normal, Ur Leukocyte Esterase Negative 07/25/22 03:40: Urine Opiates Screen NEGATIVE, Urine Methadone Screen NEGATIVE, Ur Barbiturates Screen NEGATIVE, Ur Phencyclidine Scrn NEGATIVE, Ur Amphetamines Screen NEGATIVE, MDMA (Ecstasy) Screen NEGATIVE, U Benzodiazepines Scrn NEGATIVE, Urine Cocaine Screen NEGATIVE, U Cannabinoids Screen NEGATIVE, Ur Drug Screen Comment 07/25/22 03:42: WBC 7.5, RBC 5.14, Hgb 15.7, Hct 45.7, MCV 88.9, MCH 30.5, MCHC 34.4, RDW Std Deviation 40.3, RDW Coeff of [place]te 12.2, Plt Count 253, MPV 9.4, Immature Gran % (Auto) 0.100, Neut % (Auto) 48.6, Lymph % (Auto) 36.1, [place] % (Auto) 11.0 H, Eos % (Auto) 3.1, Baso % (Auto) 1.1 H, Absolute Neuts (auto) 3.6, Absolute Lymphs (auto) 2.70, Nucleated RBC % 0 Assessment & Plan Assessment/Plan (1) Alcohol abuse: (2) Tobacco abuse: (3) Desire for detoxification: PLAN: Plan Was Alcohol dependence and desire for detoxification Urine toxicology was negative. Ethanol level was 155. Patient be started on phenobarbital and other adjunctive medications: Gabapentin as needed; dicyclomine as needed; Vistaril as needed; Imodium as needed; trazodone as needed; Zofran as needed; scheduled thiamine; and schedule folic acid. Monitor CIWA score Opioid dependence/detoxification Patient be started on Subutex and other adjunctive medications Monitor COWS and CINA score Hypertension Blood pressure is not within goal Home blood pressure medication continued. Trend blood pressure and adjust blood pressure medications. Hypokalemia Potassium level was mildly low at 3.4. No further work-up at this time. Tobacco abuse Counseled Nicotine patch prescribed. DVT prophylaxis Low risk Encourage to ambulate Charges/Coding Visit Charges Inpatient E&M: 38466 Init Hosp L2
[2022-07-25 04:08] LABS: ALB/GLOB Ratio 0.9 RATIO (0.9-2.4); AST(SGOT) 14 U/L (15-37); Alanine Aminotransfer ALT/SGPT 21 U/L (16-61); Albumin, Serum 3.7 g/dL (3.2-5.0); Alkaline Phosphatase 58 U/L (45-117); Anion Gap 11 (5-15); BUN 14 mg/dL (7-18); BUN/Creat Ratio 14.3 RATIO (10-20); Calcium,Total 8.6 mg/dL (8.5-10.1); Chloride 102 mmol/L (98-107); Creatinine, Serum 0.98 mg/dL (0.70-1.30); EST Glomerular Filtration Rate 86 mL/min (>60); Est Glom Filt Rate - Afr Amer 104 mL/min (>60); Estimated Creatinine Clearance 93.11 ml/min; Globulin 4.2 g/dL (2.2-4.2); Glucose 122 mg/dL (74-106); Lipase 120 U/L (73-393); Potassium 3.4 mmol/L (3.5-5.1); Protein, Total 7.9 g/dL (6.4-8.2); Sodium Level 137 mmol/L (136-145)
[2022-07-25 04:55] VITALS: BP 135/75; PULSE 94; RESP 18; TEMP 36.7; O2SAT 95
[2022-07-25 05:02] VITALS: BP 129/94; PULSE 96; RESP 18; TEMP 36.5; O2SAT 95
[2022-07-25 05:03] VITALS: BMI 27.8
[2022-07-25] MEDS: Phenobarbital 32.4 MG Tablet PO ×5 (05:56→21:59)
--- NOTE | 2022-07-25 07:23 | PN.HOSP_ITS ---
Subjective Subjective Follow-up for acute alcohol withdrawal. Objective Data Objective Data Vital Signs: Vital Signs Temp Pulse Resp BP Pulse Ox O2 Del Method 97.7 F L 96 18 129/94 H 95 Room Air 07/25/22 05:02 07/25/22 05:02 07/25/22 05:02 07/25/22 05:02 07/25/22 05:02 07/25/22 05:41 Oxygen Delivery Method Room Air Weight: 200 lb Body Mass Index (BMI) 27.8 Lab / Micro Data Result Diagrams: 07/25/22 03:42 07/25/22 03:42 Labs: Laboratory Results - last 24 hr 07/25/22 03:40: Urine Color Yellow, Urine Clarity Clear, Urine pH 6.0, Ur Specific [place] 1.015, Urine Protein Negative, Urine Glucose (UA) Normal, Urine Ketones Negative, Urine Occult Blood Negative, Urine Nitrite Negative, Urine Bilirubin Negative, Urine Urobilinogen Normal, Ur Leukocyte Esterase Negative, Urine RBC 0 SEEN, Urine WBC 0 SEEN, Ur Squamous Epith Cells 0 SEEN, Urine Bacteria 0 SEEN, Urine Mucus 0 SEEN 07/25/22 03:40: Urine Opiates Screen NEGATIVE, Urine Methadone Screen NEGATIVE, Ur Barbiturates Screen NEGATIVE, Ur Phencyclidine Scrn NEGATIVE, Ur Amphetamines Screen NEGATIVE, MDMA (Ecstasy) Screen NEGATIVE, U Benzodiazepines Scrn NEGATIVE, Urine Cocaine Screen NEGATIVE, U Cannabinoids Screen NEGATIVE, Ur Drug Screen Comment 07/25/22 03:42: WBC 7.5, RBC 5.14, Hgb 15.7, Hct 45.7, MCV 88.9, MCH 30.5, MCHC 34.4, RDW Std Deviation 40.3, RDW Coeff of Mayte 12.2, Plt Count 253, MPV 9.4, I mmature Gran % (Auto) 0.100, Neut % (Auto) 48.6, Lymph % (Auto) 36.1, [place] % (Auto) 11.0 H, Eos % (Auto) 3.1, Baso % (Auto) 1.1 H, Absolute Neuts (auto) 3.6, Absolute Lymphs (auto) 2.70, Nucleated RBC % 0 07/25/22 03:42: Sodium 137, Potassium 3.4 L, Chloride 102, Carbon Dioxide 24.0, Anion Gap 11, BUN 14, Creatinine 0.98, Estim Creat Clear Calc 93.11, Est GFR (MDRD) Af Amer 104, Est GFR (MDRD) Non-Af 86, BUN/Creatinine Ratio 14.3, Glucose 122 H, Calcium 8.6, Total Bilirubin 0.40, AST 14 L, ALT 21, Alkaline Phosphatase 58, Total Protein 7.9, Albumin 3.7, Globulin 4.2, Albumin/Globulin Ratio 0.9, Lipase 120 07/25/22 03:42: Ethyl Alcohol 155.0 Physical Exam Narrative Seen and examined. Patient in acute alcohol withdrawal syndrome, irritable, wants to sleep. Having anxiety and restlessness. Denies muscle cramps or vomiting. General: Lethargy, restless HEENT: Atraumatic, PERRLA, EOMI, Normocephalic Oral: Oral mucosa dry. No Gingival or Mucosal Lesions/ Ulcerations Neck: Supple, No JVD, Negative Carotid Bruits Lungs: Air entry diminished in bilateral lung bases. No crepitation/rhonchi Cardiovascular: Regular rate, Regular Rhythm, Normal S1, Normal S2, No murmurs Abdomen: Bowel Sounds Present, Soft, Non Tender, Non-Distended : No renal angle tenderness. No suprapubic tenderness. Extremities: No edema, Capillary Refill Less than 3 Seconds Skin: No rashes, No breakdown Musculoskeletal: No Tenderness to Palpation of Joints or Extremities Neurological: Cranial nerves II-XII grossly intact, DTR 2+/4 and Symmetrical, Neuro grossly intact Psych/Mental Status: Irritable Assessment & Plan Assessment/Plan (1) Alcohol abuse: (2) Tobacco abuse: (3) Desire for detoxification: PLAN: Plan Acute alcohol withdrawal syndrome with history of chronic alcohol use and dependence. Urine toxicology was negative. Ethanol level was 155. Patient be started on phenobarbital and other adjunctive medications: Gabapentin as needed; dicyclomine as needed; Vistaril as needed; Imodium as needed; trazodone as needed; Zofran as needed; scheduled thiamine; and schedule folic acid. Monitor CIWA score Opioid dependence/detoxification Patient be started on Subutex and other adjunctive medications Monitor COWS and CINA score Hypertension Blood pressure is not within goal. On home antihypertensive medications. Monitor BP and titrate the dose of antihypertensive medications accordingly. Hypokalemia Potassium level was mildly low at 3.4. Potassium replaced. Monitor labs tomorrow a.m. Tobacco abuse Counseled Nicotine patch prescribed. DVT prophylaxis Low risk Encourage to ambulate Charges/Coding Visit Charges Inpatient E&M: 22293 Subs Hosp L2
[2022-07-25] MEDS: Folic Acid 1 MG Tablet PO (08:04)
[2022-07-25] MEDS: Thiamine Hydrochloride 100 MG Tablet PO (08:04)
[2022-07-25 08:14] VITALS: O2SAT 95
[2022-07-25 10:00] VITALS: BP 131/88; PULSE 79; RESP 18; TEMP 36.8; O2SAT 97
[2022-07-25] MEDS: Pantoprazole Sodium 20 MG Tablet PO (10:53)
[2022-07-25] MEDS: cloNIDine HCl 0.1 MG Tablet PO ×2 (10:53→22:00)
[2022-07-25] MEDS: amLODIPine 10 MG Tablet PO (10:53)
[2022-07-25] MEDS: Potassium Chloride Oral Tablet 20 MEQ 40 MEQ PO (17:41)
[2022-07-25 21:57] VITALS: BP 140/90; PULSE 69; RESP 16; TEMP 36.5; O2SAT 100
[2022-07-26] VITALS (8 sets, daily range): BP systolic 120–143; BP diastolic 79–98; PULSE 65–82; RESP 16; TEMP 36.6–36.9; O2SAT 96–100
[2022-07-26] MEDS: Phenobarbital 32.4 MG Tablet PO ×6 (01:53→21:44)
[2022-07-26 05:58] LABS: Anion Gap 5 (5-15); BUN 16 mg/dL (7-18); BUN/Creat Ratio 15.8 RATIO (10-20); Chloride 101 mmol/L (98-107); Creatinine, Serum 1.01 mg/dL (0.70-1.30); EST Glomerular Filtration Rate 83 mL/min (>60); Est Glom Filt Rate - Afr Amer 100 mL/min (>60); Estimated Creatinine Clearance 93.19 ml/min; Glucose 96 mg/dL (74-106); Magnesium 2.4 mg/dL (1.6-2.6); Phosphorus 2.9 mg/dL (2.5-4.9); Potassium 4.2 mmol/L (3.5-5.1); Sodium Level 134 mmol/L (136-145)
[2022-07-26] MEDS: Thiamine Hydrochloride 100 MG Tablet PO (08:18)
[2022-07-26] MEDS: Folic Acid 1 MG Tablet PO (08:18)
[2022-07-26] MEDS: Pantoprazole Sodium 20 MG Tablet PO (10:11)
[2022-07-26] MEDS: cloNIDine HCl 0.1 MG Tablet PO ×2 (10:12→21:44)
[2022-07-26] MEDS: amLODIPine 10 MG Tablet PO (10:12)
--- NOTE | 2022-07-26 10:30 | ADDICTION ---
This software writer met with PT to conduct ASAM, MSE, AUDIT, DUDIT assessments and to plan for d/c. PT A+Ox4 and participated actively. All assessments completed and placed in PT's chart. PT plans to f/u with follow-up treatment services, however he wanted to discuss it with his family upon d/c. This worker offered resources based on him listed wants and needs. He reports that he is leaning towards [facility] since his daughter is already established there. PT did not indicate a need for transportation post d/c from [facility].
--- NOTE | 2022-07-26 15:25 | PCM.PN.HOSP ---
Subjective Subjective Follow-up for acute alcohol withdrawal syndrome Objective Data Objective Data Vital Signs: Vital Signs Temp Pulse Resp BP Pulse Ox O2 Del Method 98.3 F 69 16 133/93 H 99 Room Air 07/26/22 10:09 07/26/22 10:09 07/26/22 10:09 07/26/22 10:09 07/26/22 10:09 07/26/22 10:09 Oxygen Delivery Method Room Air Weight: 200 lb Body Mass Index (BMI) 27.8 Intake & Output: Intake and Output for Last 24 Hours 07/24/22 07/25/22 07/26/22 23:59 23:59 23:59 Intake Total 420 / 420 Balance 420 / 420 Lab / Micro Data Result Diagrams: 07/25/22 03:42 07/26/22 04:16 Labs: Laboratory Results - last 24 hr 07/26/22 04:16: Sodium 134 L, Potassium 4.2, Chloride 101, Carbon Dioxide 28.0, Anion Gap 5, BUN 16, Creatinine 1.01, Estim Creat Clear Calc 93.19, Est GFR (MDRD) Af Amer 100, Est GFR (MDRD) Non-Af 83, BUN/Creatinine Ratio 15.8, Glucose 96, Calcium 9.0, Phosphorus 2.9, Magnesium 2.4 Physical Exam Narrative Seen and examined. Patient in acute alcohol withdrawal syndrome. Denies hallucination or delusions. Today still patient seems irritable when he states he wants to sleep. General: Lethargy, sleepy HEENT: Atraumatic, PERRLA, EOMI, Normocephalic Oral: Oral mucosa dry. No Gingival or Mucosal Lesions/ Ulcerations Neck: Supple, No JVD, Negative Carotid Bruits Lungs: Air entry diminished in bilateral lung bases. No crepitation/rhonchi Cardiovascular: Regular rate, Regular Rhythm, Normal S1, Normal S2, No murmurs Abdomen: Bowel Sounds Present, Soft, Non Tender, Non-Distended : No renal angle tenderness. No suprapubic tenderness. Extremities: No edema, Capillary Refill Less than 3 Seconds Skin: No rashes, No breakdown Musculoskeletal: No Tenderness to Palpation of Joints or Extremities Neurological: Cranial nerves II-XII grossly intact, DTR 2+/4 and Symmetrical, Neuro grossly intact Psych/Mental Status: Irritable Assessment & Plan Assessment/Plan (1) Alcohol abuse: (2) Tobacco abuse: (3) Desire for detoxification: PLAN: Plan Acute alcohol withdrawal syndrome with history of chronic alcohol use and dependence. Urine toxicology was negative. Ethanol level was 155. Patient be started on phenobarbital and other adjunctive medications: Gabapentin as needed; dicyclomine as needed; Vistaril as needed; Imodium as needed; trazodone as needed; Zofran as needed; scheduled thiamine; and schedule folic acid. Monitor CIWA score 07/26: Continue phenobarbital. Opioid dependence/detoxification Patient be started on Subutex and other adjunctive medications Monitor COWS and CINA score Hypertension Blood pressure is not within goal. On home antihypertensive medications. Monitor BP and titrate the dose of antihypertensive medications accordingly. Hypokalemia Potassium level was mildly low at 3.4. Potassium replaced. Monitor labs tomorrow a.m. 07/26: Potassium magnesium and phosphorus level normal. Tobacco abuse Counseled Nicotine patch prescribed. DVT prophylaxis Low risk Encourage to ambulate Charges/Coding Visit Charges Inpatient E&M: 03391 Subs Hosp L2
[2022-07-26] MEDS: Buprenorphine HCl 2 MG TAB.SUBL SL (22:33)
[2022-07-27] VITALS (8 sets, daily range): BP systolic 123–150; BP diastolic 70–101; PULSE 70–81; RESP 15–18; TEMP 36.6–37; O2SAT 98–99
[2022-07-27] MEDS: Phenobarbital 32.4 MG Tablet PO ×5 (02:09→18:43)
[2022-07-27] MEDS: Buprenorphine HCl 2 MG TAB.SUBL SL ×3 (06:17→22:48)
[2022-07-27] MEDS: cloNIDine HCl 0.1 MG Tablet PO ×2 (09:47→22:48)
[2022-07-27] MEDS: Folic Acid 1 MG Tablet PO (09:47)
[2022-07-27] MEDS: Pantoprazole Sodium 20 MG Tablet PO (09:47)
[2022-07-27] MEDS: Thiamine Hydrochloride 100 MG Tablet PO (09:47)
[2022-07-27] MEDS: amLODIPine 10 MG Tablet PO (09:47)
[2022-07-27] MEDS: Acetaminophen 325 MG Tablet 650 MG PO (14:22)
--- NOTE | 2022-07-27 16:31 | PCM.PN.HOSP ---
Subjective Subjective Follow-up for acute alcohol withdrawal. Objective Data Objective Data Vital Signs: Vital Signs Temp Pulse Resp BP Pulse Ox O2 Del Method 98.6 F 75 17 150/101 H 99 Room Air 07/27/22 10:30 07/27/22 10:30 07/27/22 10:30 07/27/22 10:30 07/27/22 10:30 07/27/22 10:30 Oxygen Delivery Method Room Air Weight: 200 lb Body Mass Index (BMI) 27.8 Intake & Output: Intake and Output for Last 24 Hours 07/25/22 07/26/22 07/27/22 23:59 23:59 23:59 Intake Total 620 / 620 360 / 360 Balance 620 / 620 360 / 360 Lab / Micro Data Result Diagrams: 07/25/22 03:42 07/26/22 04:16 Physical Exam Narrative Seen and examined. Patient in acute opioid and alcohol withdrawal syndrome. Patient still feels anxious and restless and irritable. Denies hallucination or delusions. Patient wants to be discharged on the same date with her daughter admitted in the hospital. General: Lethargy, restless. HEENT: Atraumatic, PERRLA, EOMI, Normocephalic Oral: Oral mucosa dry. No Gingival or Mucosal Lesions/ Ulcerations Neck: Supple, No JVD, Negative Carotid Bruits Lungs: Air entry diminished in bilateral lung bases. No crepitation/rhonchi Cardiovascular: Regular rate, Regular Rhythm, Normal S1, Normal S2, No murmurs Abdomen: Bowel Sounds Present, Soft, Non Tender, Non-Distended : No renal angle tenderness. No suprapubic tenderness. Extremities: No edema, Capillary Refill Less than 3 Seconds Skin: No rashes, No breakdown Musculoskeletal: No Tenderness to Palpation of Joints or Extremities Neurological: Cranial nerves II-XII grossly intact, DTR 2+/4 and Symmetrical, Neuro grossly intact Psych/Mental Status: Irritable Assessment & Plan Assessment/Plan (1) Alcohol abuse: (2) Tobacco abuse: (3) Desire for detoxification: PLAN: Plan Acute alcohol withdrawal syndrome with history of chronic alcohol use and dependence. Urine toxicology was negative. Ethanol level was 155. Patient be started on phenobarbital and other adjunctive medications: Gabapentin as needed; dicyclomine as needed; Vistaril as needed; Imodium as needed; trazodone as needed; Zofran as needed; scheduled thiamine; and schedule folic acid. Monitor CIWA score 07/26: Continue phenobarbital. 07/27: CIWA score 9. Patient is still has significant withdrawal symptoms. Continue phenobarbitone. Acute opioid withdrawal syndrome with chronic opioid dependence and dependence Patient be started on Subutex and other adjunctive medications Monitor COWS and CINA score 07/27: CIWA score 5. Hypertension Blood pressure is not within goal. On home antihypertensive medications. Monitor BP and titrate the dose of antihypertensive medications accordingly. Hypokalemia Potassium level was mildly low at 3.4. Potassium replaced. Monitor labs tomorrow a.m. 07/26: Potassium magnesium and phosphorus level normal. Tobacco abuse Counseled Nicotine patch prescribed. DVT prophylaxis Low risk Encourage to ambulate Charges/Coding Visit Charges Inpatient E&M: 92836 Subs Hosp L2
[2022-07-27] MEDS: traZODone 100 MG Tablet PO (22:48)
[2022-07-28 01:34] VITALS: BP 129/85; PULSE 67; RESP 16; TEMP 36.6; O2SAT 100
[2022-07-28] MEDS: Phenobarbital 32.4 MG Tablet PO ×3 (01:36→13:46)
[2022-07-28 02:00] VITALS: BP 128/85; PULSE 75; RESP 16; TEMP 36.6; O2SAT 100
[2022-07-28 06:00] VITALS: BP 113/79; PULSE 69; RESP 16; TEMP 36.8; O2SAT 97
[2022-07-28 06:30] VITALS: BP 113/70; PULSE 69; RESP 16; TEMP 36.8; O2SAT 98
[2022-07-28] MEDS: Buprenorphine HCl 2 MG TAB.SUBL SL ×2 (06:37→13:45)
--- NOTE | 2022-07-28 09:53 | DS.PCM_ITS ---
Providers Date of Admission: 07/25/22 Date of Discharge: 07/28/22 Primary Care Physician: No Primary Care Phys Reason For Visit: DESIRE FOR DETOXIFICATION Diagnosis Discharge Diagnosis (1) Alcohol abuse: Status: Chronic Code(s): F10.10 - Alcohol abuse, uncomplicated (2) Tobacco abuse: Status: Chronic Code(s): Z72.0 - Tobacco use (3) Desire for detoxification: Status: Resolved Plan Patient is a 52-year-old gentleman with history of alcohol dependence admitted with acute alcohol withdrawal 1.? Acute alcohol withdrawal ? Patient has been admitted to regular nursing floor currently being managed with phenobarb taper 2.? Acute opioid withdrawal ? Managed with Subutex taper 3.? GERD ? On PPI did continue 4.? Tobacco dependence - Counseled on cessation, offered nicotine patch for tobacco cravings 5.?Hypertension - Blood pressure controlled, home medications continued with dose adjustment as needed 6.? Low testosterone ? Patient apparently on testosterone supplementation with plans to resume on discharge 7.? Hypokalemia ? Corrected per protocol 8. DVT prophylaxis ? Low risk Medications at Discharge Home Medications testosterone enanthate 200 mg/mL intramuscular oil 225 mg IM QWEEK low testos terone 06/18/20 gabapentin 600 mg tablet 600 mg PO 4X/DAY neuropathy 07/25/20 omeprazole 20 mg capsule,delayed release 20 mg PO DAILY GERD #30 caps 08/18/21 amlodipine 5 mg tablet 10 mg PO DAILY Check with primary doctor #0 tabs 09/14/21 clonidine HCl 0.1 mg tablet 0.1 mg PO BID anxiety #30 tabs 09/14/21 Hospital Course Summary of Care Provided Minutes Spent on Discharge: 35 Physical Exam Narrative GENERAL: cooperative HEENT: Atraumatic; normocephalic EYES; Anicteric, Normal Conjunctiva NECK; supple, normal thyroid, RESPIRATORY: Diminished to auscultation CARDIOVASCULAR: Regular S1 S2, GI: soft, normoactive bowel sounds, : No Renal angle tenderness; EXTREMITIES: No edema, no clubbing, MUSCULOSKELETAL: no muscle wasting NEURO: Awake; no lateralizing signs. SKIN: No Rash PSYCH; Flat affect Weight / BMI Weight Weight: 90.718 kg Body Mass Index (BMI) 27.8 ABG / Lab / Microbiology Data Result Diagrams: 07/25/22 03:42 07/26/22 04:16 D/C Instructions Discharge Diet: No restrictions Discharge Activity: Return to Normal Activity Call your doctor if you observe: Fever of 101 or Higher, Shortness of breath, Fainting spells and Chest pain Meaningful Use Info Meaningful Use Diagnoses (Choose all that apply): None applicable Discharge Plan Admission Admit Date/Time: 07/25/22 03:58 Attending Provider: Juan Grider Primary Care Provider: Care Physician,No Primary Consulting Providers: Glynn Landin ; Jake Temple Discharge Orders/Prescriptions Prescriptions: No Action testosterone enanthate 200 MG/ML oil 225 mg IM QWEEK gabapentin 600 MG tablet 600 mg PO 4X/DAY omeprazole 20 mg Capsule,Delayed Release(Dr/Ec) 20 mg PO DAILY Qty: 30 0RF clonidine HCl 0.1 mg tablet 0.1 mg PO BID Qty: 30 0RF amlodipine 5 mg tablet 10 mg PO DAILY Qty: 0 0RF Referrals / Follow Up: Care Physician,No Primary [Primary Care Provider] - Disposition Disposition (needs filled in before D/C Order can be placed): Home, Self Care Charges/Coding Visit Charges Inpatient E&M: 41989 Disch Hosp
[2022-07-28] MEDS: cloNIDine HCl 0.1 MG Tablet PO (10:29)
[2022-07-28] MEDS: Folic Acid 1 MG Tablet PO (10:29)
[2022-07-28] MEDS: amLODIPine 10 MG Tablet PO (10:29)
[2022-07-28] MEDS: Pantoprazole Sodium 20 MG Tablet PO (10:29)
[2022-07-28] MEDS: Thiamine Hydrochloride 100 MG Tablet PO (10:29)
[2022-07-28 10:30] VITALS: BP 111/78; PULSE 74; RESP 16; TEMP 36.6; O2SAT 98
== END 2022-07-28 13:56 | disposition home or self-care (01) ==
LOC: ED 03:45 → PCU 07:02
PROVIDERS: Internal Medicine; Admitting Provider Hospitalist; Emergency Provider Emergency Medicine; Visit Provider Internal Medicine
DX: F11.23 Opioid dependence with withdrawal (principal); F10.239 Alcohol dependence with withdrawal, unspecified; E87.6 Hypokalemia; F17.200 Nicotine dependence, unspecified, uncomplicated; I10 Essential (primary) hypertension; F41.9 Anxiety disorder, unspecified; F32.A Depression, unspecified; K21.9 Gastro-esophageal reflux disease without esophagitis; Z79.899 Other long term (current) drug therapy; Y90.6 Blood alcohol level of 120-199 mg/100 ml
CPT/HCPCS: 36415; 80048; 80053; 80307; 81001; 82077; 83690; 83735; 84100; 85025; 99221; 99283; G0378

== ENCOUNTER 2022-09-22 12:04 | Observation (INO) | payer MEDICAID, SELFPAY ==
[2022-09-22 12:05] VITALS: BP 147/108; PULSE 90; RESP 18; TEMP 35.9; O2SAT 100; BMI 27.8
[2022-09-22 13:13] LABS: Absolute Lymphocyte Count 2.48 X10^3/uL (0.83-4.51); Absolute Neutrophil Count 6.4 X10^3/uL (2.0-7.7); Basophil# 0.04 X10^3/uL; Basophil% 0.4 % (0-1); Eosinophil# 0.04 X10^3/uL; Eosinophils% 0.4 % (0-5); Hematocrit 44.6 % (40-54); Lymphocyte # 2.48 X10^3/ul (0.83-4.51); Lymphocyte % 24.7 % (19-41); Mean Corp Hgb Conc 35.9 g/dL (32-36); Mean Corpuscular Hgb 30.2 pg (27.0-32.0); Mean Corpuscular Volume 84.3 fL (80-94); Mean Platelet Vol. 8.9 fl (6.2-12.0); Monocyte# 1.09 X10^3/uL; Monocyte% 10.8 % (0-10); NRBC Flagged by Analyzer 0 % (0-5); Neutrophil # 6.39 X10^3/uL (2.7-7.7); Neutrophil % 63.5 % (47-70); Platelet Count 313 K/mm3 (150-450); RBC Distribution Width CV 13.2 % (11.6-14.6); RBC Distribution Width SD 40.6 fl (35.1-43.9); Red Blood Count 5.29 M/mm3 (4.6-6.2); White Blood Count 10.1 K/mm3 (4.4-11.0)
[2022-09-22] MEDS: Dicyclomine 20 MG/2 ML Vial IM (13:18)
[2022-09-22] MEDS: Phenobarbital 32.4 MG Tablet PO (13:18)
[2022-09-22 13:26] LABS: Amphetamine Urine VISTA NEGATIVE (<1000 ng/mL); Barbiturate Urine VISTA NEGATIVE (< 200 ng/mL); Benzodiazepine Urine VISTA NEGATIVE (< 200 ng/mL); Cocaine Urine VISTA POSITIVE (< 300 ng/mL); Ecstacy Urine VISTA NEGATIVE (< 500 ng/mL); Methadone Urine VISTA NEGATIVE (< 300 ng/mL); PCP Urine VISTA NEGATIVE (< 25 ng/mL); THC Urine VISTA NEGATIVE (< 50 ng/mL); Vista UDS pH Range 6
[2022-09-22 13:28] LABS: ALB/GLOB Ratio 0.9 RATIO (0.9-2.4); AST(SGOT) 11 U/L (15-37); Alanine Aminotransfer ALT/SGPT 18 U/L (16-61); Albumin, Serum 3.8 g/dL (3.2-5.0); Alkaline Phosphatase 61 U/L (45-117); Anion Gap 10 (5-15); BUN 9 mg/dL (7-18); BUN/Creat Ratio 9.6 RATIO (10-20); Calcium,Total 9.8 mg/dL (8.5-10.1); Chloride 106 mmol/L (98-107); Creatinine, Serum 0.94 mg/dL (0.70-1.30); EST Glomerular Filtration Rate 90 mL/min (>60); Est Glom Filt Rate - Afr Amer 109 mL/min (>60); Estimated Creatinine Clearance 100.13 ml/min; Globulin 4.3 g/dL (2.2-4.2); Glucose 82 mg/dL (74-106); Lipase 186 U/L (73-393); Potassium 3.7 mmol/L (3.5-5.1); Protein, Total 8.1 g/dL (6.4-8.2); Sodium Level 138 mmol/L (136-145)
--- NOTE | 2022-09-22 13:53 | EDS_ITS ---
HPI History of Present Illness Chief Complaint: Substance Abuse Informant: patient Onset/Context/Timing Onset: Today Context: Gradual Onset Timing: Continuous Quality: Cramping, nausea Location: Abdomen Worsened by: Nothing Relieved by: Nothing Associated Symptoms Associated Symptoms: Positive for diarrhea* and palpatations; Negative for vomiting*, fever*, rash*, seizure, tremor, change in mental status, trauma, suicidal ideation or homicidal ideation Narrative Narrative: Patient presents requesting detox from fentanyl and alcohol. Patient states he uses 1 g of fentanyl per day. Patient states he drinks 6 tall boys per day. Patient states his last drink was this morning. Patient states his last fentanyl use was a couple days ago. Patient admits to some nausea and diarrhea. Patient denies any vomiting. Patient states he has had episodes where he felt like his heart was racing. Patient denies any suicidal or homicidal ideations. Patient states he was in detox here approximately 2 months ago but started using again when he was discharged. PFSH PFSH Medical History Alcohol abuse Anxiety Depression Erythrocytosis GERD (gastroesophageal reflux disease) Hypertension Opiate abuse, continuous Opioid abuse Polysubstance abuse Sleep apnea Smoker Home Medications testosterone enanthate 200 mg/mL intramuscular oil 225 mg IM QWEEK low testosterone 06/18/20 [History Last Taken 05/26/21] gabapentin 600 mg tablet 600 mg PO 4X/DAY neuropathy 07/25/20 [History Last Taken 09/10/21] omeprazole 20 mg capsule,delayed release 20 mg PO DAILY GERD #30 caps 08/18/21 [Rx Last Taken 09/09/21] amlodipine 5 mg tablet 10 mg PO DAILY Check with primary doctor #0 tabs 09/14/21 [Rx Last Taken 09/09/21] clonidine HCl 0.1 mg tablet 0.1 mg PO BID anxiety #30 tabs 09/14/21 [Rx Last Taken 09/09/21] Allergy/AdvReac Type Severity Reaction Status Date / Time No Known Allergies Allergy Verified 09/22/22 12:16 Family History other Surgical History History of ankle surgery Social History household members: significant other Smoking Status: Light Smoker (<10/day) alcohol intake: current alcohol intake frequency: 3 or more drinks per day substance use type: former substance user Date of last use: 02/16/2021-opiates ROS ROS ED Constitutional Constitutional ED: Reports chills; Denies fever(s) Eyes Eyes: Denies blurry vision or change in vision ENT ENT ED: Reports rhinorrhea; Denies sore throat Cardiovascular Cardiovascular: Denies chest pain or palpitations Respiratory/Chest Respiratory/Chest: Denies cough or dyspnea Gastrointestinal Gastrointestinal: Reports diarrhea and nausea; Denies vomiting Genitourinary Genitourinary ED: Denies dysuria or hematuria Musculoskeletal Musculoskeletal: Reports back pain and neck pain Integumentary Denies abscess or rash Neurologic Neurologic: Reports headache(s); Denies weakness Allergic/Immunologic Allergic/Immunologic ED: Denies mouth swelling or urticaria EXAM Physical Exam Const Vital Signs: 09/22/22 12:05 Temperature 96.7 F L Temperature Source Temporal Pulse Rate 90 Respiratory Rate 18 Blood Pressure 147/108 H Blood Pressure Mean 121 Pulse Ox 100 Oxygen Delivery Method Room Air Positive well nourished and well developed General Appearance ED: well developed HEENT Reports moist mucous membranes Neck supple and no JVD Resp normal respiratory effort and clear to auscultation bilaterally Cardio regular rate, regular rhythm and no murmurs GI normal to inspection, nondistended, normoactive bowel sounds and non-tender Palpation: soft Extremity normal to inspection General Extremety ED: Negative for edema or tenderness General Extremity: Negative for edema Neuro oriented x3, CN's II-XII intact bilaterally and no sensory deficits noted Sensorium / Orientation: alert Motor Exam: strength 5/5 throughout Psych mental status grossly normal Skin no rashes or lesions noted MDM MDM MDM Narrative Medical decision making narrative: Differential diagnosis includes substance abuse, opiate withdrawal, alcohol withdrawal, alcoholic pancreatitis, and gastroenteritis. CBC was obtained to assess for leukocytosis and anemia. Comprehensive metabolic profile was obtained to assess for electrolyte abnormality, renal function, and hepatic function. Lipase was obtained to assess for alcoholic pancreatitis. Urine tox screen was obtained to assess for substance abuse. Serum alcohol level was obtained to assess for alcohol intoxication. Lab Data Attestation: I reviewed the patient's lab results. Lab results narrative: CBC was reviewed and was within normal limits. Comprehensive metabolic profile was reviewed and was within normal limits. Lipase was reviewed and was normal. Urine tox screen was reviewed and was positive for cocaine. Serum alcohol level was reviewed and was normal at 42. Labs: Laboratory Results - last 24 hr 09/22/22 09/22/22 09/22/22 12:30 13:00 13:00 WBC 10.1 RBC 5.29 Hgb 16.0 Hct 44.6 MCV 84.3 MCH 30.2 MCHC 35.9 RDW Std Deviation 40.6 RDW Coeff of Mayte 13.2 Plt Count 313 MPV 8.9 Immature Gran % (Auto) 0.200 Neut % (Auto) 63.5 Lymph % (Auto) 24.7 [place] % (Auto) 10.8 H Eos % (Auto) 0.4 Baso % (Auto) 0.4 Absolute Neuts (auto) 6.4 Absolute Lymphs (auto) 2.48 Nucleated RBC % 0 Sodium 138 Potassium 3.7 Chloride 106 Carbon Dioxide 22.0 Anion Gap 10 BUN 9 Creatinine 0.94 Estim Creat Clear Calc 100.13 Est GFR (MDRD) Af Amer 109 Est GFR (MDRD) Non-Af 90 BUN/Creatinine Ratio 9.6 L Glucose 82 Calcium 9.8 Total Bilirubin 0.60 AST 11 L ALT 18 Alkaline Phosphatase 61 Total Protein 8.1 Albumin 3.8 Globulin 4.3 H Albumin/Globulin Ratio 0.9 Lipase 186 Urine Opiates Screen NEGATIVE Urine Methadone Screen NEGATIVE Ur Barbiturates Screen NEGATIVE Ur Phencyclidine Scrn NEGATIVE Ur Amphetamines Screen NEGATIVE MDMA (Ecstasy) Screen NEGATIVE U Benzodiazepines Scrn NEGATIVE Urine Cocaine Screen POSITIVE H U Cannabinoids Screen NEGATIVE Ur Drug Screen Comment Ethyl Alcohol 09/22/22 13:00 WBC RBC Hgb Hct MCV MCH MCHC RDW Std Deviation RDW Coeff of Mayte Plt Count MPV Immature Gran % (Auto) Neut % (Auto) Lymph % (Auto) [place] % (Auto) Eos % (Auto) Baso % (Auto) Absolute Neuts (auto) Absolute Lymphs (auto) Nucleated RBC % Sodium Potassium Chloride Carbon Dioxide Anion Gap BUN Creatinine Estim Creat Clear Calc Est GFR (MDRD) Af Amer Est GFR (MDRD) Non-Af BUN/Creatinine Ratio Glucose Calcium Total Bilirubin AST ALT Alkaline Phosphatase Total Protein Albumin Globulin Albumin/Globulin Ratio Lipase Urine Opiates Screen Urine Methadone Screen Ur Barbiturates Screen Ur Phencyclidine Scrn Ur Amphetamines Screen MDMA (Ecstasy) Screen U Benzodiazepines Scrn Urine Cocaine Screen U Cannabinoids Screen Ur Drug Screen Comment Ethyl Alcohol 42.0 Treatment and Re-Evaluation Narrative: Patient was given a dose of Bentyl here for his abdominal cramping. Patient was also given a dose of phenobarbital. Patient was advised of his findings. Case was discussed with the hospitalist. He will admit the patient to his service. Patient understands and is agreeable with the plan. All questions were answered. Discharge Plan Dx/Rx/DC Orders Clinical Impression: Alcohol withdrawal, Opiate withdrawal, Tobacco abuse Disposition Disposition: Acute Care Hospital [facility]
[2022-09-22 14:13] VITALS: BP 145/100; PULSE 99; RESP 18; TEMP 36; O2SAT 94
--- NOTE | 2022-09-22 14:20 | PCM.HP.STD ---
HPI - General General Date of Admission: 09/22/22 HPI Narrative TRAN CARR, is a 52 M who presents with alcohol and opiate withdrawal. His last fentanyl use was about a half a gram 2 to 3 days ago and his last alcohol use was at around 9 AM but he says it was just 1 drink today he had stopped drinking at around 2:30 in the morning. He has gone through detox before. He also smokes about half pack of cigarettes a day and thinks that the nicotine patch would be helpful. In the ER he also tested positive for cocaine. [facility] Medical History Alcohol abuse Anxiety Depression Erythrocytosis GERD (gastroesophageal reflux disease) Hypertension Opiate abuse, continuous Opioid abuse Polysubstance abuse Sleep apnea Smoker Home Medications testosterone enanthate 200 mg/mL intramuscular oil 225 mg IM QWEEK low testosterone 06/18/20 [History Last Taken 05/26/21] gabapentin 600 mg tablet 600 mg PO 4X/DAY neuropathy 07/25/20 [History Last Taken 09/10/21] omeprazole 20 mg capsule,delayed release 20 mg PO DAILY GERD #30 caps 08/18/21 [Rx Last Taken 09/09/21] amlodipine 5 mg tablet 10 mg PO DAILY Check with primary doctor #0 tabs 09/14/21 [Rx Last Taken 09/09/21] clonidine HCl 0.1 mg tablet 0.1 mg PO BID anxiety #30 tabs 09/14/21 [Rx Last Taken 09/09/21] Allergy/AdvReac Type Severity Reaction Status Date / Time No Known Allergies Allergy Verified 09/22/22 12:16 Family History other no significant family history Surgical History History of ankle surgery Social History household members: significant other Smoking Status: Light Smoker (<10/day) alcohol intake: current alcohol intake frequency: 3 or more drinks per day substance use type: former substance user Date of last use: 02/16/2021-opiates ROS Constitutional Constitutional: Denies chills, fatigue, fever(s) or malaise Eyes Eyes: Denies blurry vision ENT HEENT: Denies headache(s) or nasal discharge Cardiovascular Cardiovascular: Denies chest pain, dyspnea on exertion or syncope Respiratory/Chest Respiratory/Chest: Denies cough, shortness of breath at rest or shortness of breath with exertion Gastrointestinal Gastrointestinal: Reports diarrhea and nausea; Denies constipation or vomiting Genitourinary Genitourinary: Denies dysuria Neurologic Neurologic: Reports headache(s); Denies focal weakness, numbness or tremor(s) Psychiatric Psychiatric: Reports anxiety; Denies depression Vital Signs Vital Signs Vital Signs: 09/22/22 12:05 Temperature 96.7 F L Temperature Source Temporal Pulse Rate 90 Respiratory Rate 18 Blood Pressure 147/108 H Blood Pressure Mean 121 Pulse Ox 100 Oxygen Delivery Method Room Air Weight Weight: 200 lb Body Mass Index (BMI) 27.8 Physical Exam Narrative General: Alert, Oriented x3, Cooperative, restless HEENT: Atraumatic, PERRLA, EOMI, Normocephalic Oral: Moist Mucosa Neck: Supple, No JVD Lungs: Clear to auscultation, Normal air movement, No rhonchi, No wheeze, No rales Cardiovascular: Regular rate, Regular Rhythm, Normal S1, Normal S2, No murmurs Abdomen: Soft, Non Tender, Non-Distended, No Hepato-splenomegaly Extremities: No edema, Capillary Refill Less than 3 Seconds Skin: No rashes, No breakdown Musculoskeletal: No Tenderness to Palpation of Joints or Extremities Neurological: Cranial nerves II-XII grossly intact, Motor Exam 5/5 strength throughout, Sensory exam intact to light touch and pain Psych/Mental Status: Anxious, restless Results Lab / Micro Data Result Diagrams: 09/22/22 13:00 09/22/22 13:00 Labs: Laboratory Results - last 24 hr 09/22/22 12:30: Urine Opiates Screen NEGATIVE, Urine Methadone Screen NEGATIVE, Ur Barbiturates Screen NEGATIVE, Ur Phencyclidine Scrn NEGATIVE, Ur Amphetamines Screen NEGATIVE, MDMA (Ecstasy) Screen NEGATIVE, U Benzodiazepines Scrn NEGATIVE, Urine Cocaine Screen POSITIVE H, U Cannabinoids Screen NEGATIVE, Ur Drug Screen Comment 09/22/22 13:00: WBC 10.1, RBC 5.29, Hgb 16.0, Hct 44.6, MCV 84.3, MCH 30.2, MCHC 35.9, RDW Std Deviation 40.6, RDW Coeff of Mayte 13.2, Plt Count 313, MPV 8.9, Immature Gran % (Auto) 0.200, Neut % (Auto) 63.5, Lymph % (Auto) 24.7, [place] % (Auto) 10.8 H, Eos % (Auto) 0.4, Baso % (Auto) 0.4, Absolute Neuts (auto) 6.4, Absolute Lymphs (auto) 2.48, Nucleated RBC % 0 09/22/22 13:00: Sodium 138, Potassium 3.7, Chloride 106, Carbon Dioxide 22.0, Anion Gap 10, BUN 9, Creatinine 0.94, Estim Creat Clear Calc 100.13, Est GFR (MDRD) Af Amer 109, Est GFR (MDRD) Non-Af 90, BUN/Creatinine Ratio 9.6 L, Glucose 82, Calcium 9.8, Total Bilirubin 0.60, AST 11 L, ALT 18, Alkaline Phosphatase 61, Total Protein 8.1, Albumin 3.8, Globulin 4.3 H, Albumin/Globulin Ratio 0.9, Lipase 186 09/22/22 13:00: Ethyl Alcohol 42.0 Assessment & Plan Assessment/Plan (1) Opiate withdrawal: (2) Alcohol withdrawal: PLAN: Plan 1. Acute alcohol and opiate withdrawal/tobacco abuse ? Last opiate use was 2 to 3 days ago, last alcohol use was today ? Continue with the opiate and alcohol withdrawal protocol ? Follow-up with 180 ? We will do a nicotine patch DVT: Ambulation Charges/Coding Visit Charges Inpatient E&M: 36382 Init Hosp L2
[2022-09-22 15:50] VITALS: BMI 25.7
[2022-09-22 16:07] VITALS: BP 156/105; PULSE 74; RESP 20; TEMP 36.3; O2SAT 99
[2022-09-22] MEDS: Phenobarbital 32.4 MG Tablet 64.8 MG PO ×2 (16:37→21:21)
[2022-09-22] MEDS: hydrOXYzine PAM 25 MG Capsule 50 MG PO (16:37)
[2022-09-22] MEDS: Dicyclomine 10 MG Capsule 20 MG PO (16:37)
[2022-09-22] MEDS: Gabapentin 600 MG Tablet PO ×2 (16:38→21:21)
[2022-09-22] MEDS: Ondansetron 8 MG Tablet PO (16:38)
[2022-09-22] MEDS: Buprenorphine HCl 2 MG TAB.SUBL SL (17:37)
[2022-09-22] MEDS: cloNIDine HCl 0.1 MG Tablet PO (19:51)
[2022-09-22] MEDS: Acetaminophen 325 MG Tablet 650 MG PO (21:21)
[2022-09-22] MEDS: traZODone 100 MG Tablet PO (21:21)
[2022-09-22 22:00] VITALS: BP 136/97; PULSE 67
[2022-09-23 02:00] VITALS: BP 116/79; PULSE 66; RESP 14; TEMP 36.6; O2SAT 98
[2022-09-23] MEDS: Phenobarbital 32.4 MG Tablet 64.8 MG PO ×6 (02:16→22:12)
[2022-09-23] MEDS: Buprenorphine HCl 2 MG TAB.SUBL SL ×3 (02:16→18:02)
[2022-09-23 05:08] VITALS: BP 112/78; PULSE 62; RESP 14; TEMP 37.2; O2SAT 96
--- NOTE | 2022-09-23 07:46 | PN.HOSP_ITS ---
Reason for Visit Reason for Visit: Diagnoses Alcohol use, unspecified with withdrawal, unspecified (09/22/22) Opioid use, unspecified with withdrawal (09/22/22) Subjective Subjective Doing well, no issues overnight. Cina and CIWA scores of 0 Objective Data Objective Data Vital Signs: Vital Signs Temp Pulse Resp BP Pulse Ox O2 Del Method 98.9 F 62 14 112/78 96 Room Air 09/23/22 05:08 09/23/22 05:08 09/23/22 05:08 09/23/22 05:08 09/23/22 05:08 09/23/22 05:08 Oxygen Delivery Method Room Air Weight: 185 lb Body Mass Index (BMI) 25.7 Intake & Output: Intake and Output for Last 24 Hours 09/22/22 09/23/22 09/24/22 03:59 03:59 03:59 Intake Total 900 / 900 Balance 900 / 900 Lab / Micro Data Result Diagrams: 09/22/22 13:00 09/22/22 13:00 Labs: Laboratory Results - last 24 hr 09/22/22 12:30: Urine Opiates Screen NEGATIVE, Urine Methadone Screen NEGATIVE, Ur Barbiturates Screen NEGATIVE, Ur Phencyclidine Scrn NEGATIVE, Ur Amphetamines Screen NEGATIVE, MDMA (Ecstasy) Screen NEGATIVE, U Benzodiazepines Scrn NEGATIVE, Urine Cocaine Screen POSITIVE H, U Cannabinoids Screen NEGATIVE, Ur Drug Screen Comment 09/22/22 13:00: WBC 10.1, RBC 5.29, Hgb 16.0, Hct 44.6, MCV 84.3, MCH 30.2, MCHC 35.9, RDW Std Deviation 40.6, RDW Coeff of Mayte 13.2, Plt Count 313, MPV 8.9, Immature Gran % (Auto) 0.200, Neut % (Auto) 63.5, Lymph % (Auto) 24.7, [place] % (Auto) 10.8 H, Eos % (Auto) 0.4, Baso % (Auto) 0.4, Absolute Neuts (auto) 6.4, Absolute Lymphs (auto) 2.48, Nucleated RBC % 0 09/22/22 13:00: Sodium 138, Potassium 3.7, Chloride 106, Carbon Dioxide 22.0, Anion Gap 10, BUN 9, Creatinine 0.94, Estim Creat Clear Calc 100.13, Est GFR (MDRD) Af Amer 109, Est GFR (MDRD) Non-Af 90, BUN/Creatinine Ratio 9.6 L, Glucose 82, Calcium 9.8, Total Bilirubin 0.60, AST 11 L, ALT 18, Alkaline Phosphatase 61, Total Protein 8.1, Albumin 3.8, Globulin 4.3 H, Albumin/Globulin Ratio 0.9, Lipase 186 09/22/22 13:00: Ethyl Alcohol 42.0 Physical Exam Narrative General: Alert, Oriented x3, Cooperative, no distress HEENT: Atraumatic, PERRLA, EOMI, Normocephalic Oral: Moist Mucosa Neck: Supple, No JVD Lungs: Clear to auscultation, Normal air movement, No rhonchi, No wheeze, No rales Cardiovascular: Regular rate, Regular Rhythm, Normal S1, Normal S2, No murmurs Abdomen: Soft, Non Tender, Non-Distended, No Hepato-splenomegaly Extremities: No edema, Capillary Refill Less than 3 Seconds Skin: No rashes, No breakdown Musculoskeletal: No Tenderness to Palpation of Joints or Extremities Neurological: Cranial nerves II-XII grossly intact, Motor Exam 5/5 strength throughout, Sensory exam intact to light touch and pain Psych/Mental Status: Appropriate, normal affect Assessment & Plan Assessment/Plan (1) Opiate withdrawal: (2) Alcohol withdrawal: PLAN: Plan 1. Acute alcohol and opiate withdrawal/tobacco abuse ? Last opiate use was 2 to 3 days ago, last alcohol use was today ? Continue with the opiate and alcohol withdrawal protocol ? Follow-up with 180 ? We will do a nicotine patch DVT: Ambulation Charges/Coding Visit Charges Inpatient E&M: 62348 Subs Hosp L2
[2022-09-23] MEDS: amLODIPine 10 MG Tablet PO (09:19)
[2022-09-23] MEDS: Acetaminophen 325 MG Tablet 650 MG PO (09:19)
[2022-09-23] MEDS: cloNIDine HCl 0.1 MG Tablet PO ×2 (09:19→22:12)
[2022-09-23] MEDS: Folic Acid 1 MG Tablet PO (09:20)
[2022-09-23] MEDS: Thiamine Hydrochloride 100 MG Tablet PO (09:20)
[2022-09-23] MEDS: hydrOXYzine PAM 25 MG Capsule 50 MG PO (09:20)
[2022-09-23] MEDS: Pantoprazole Sodium 20 MG Tablet PO (09:20)
[2022-09-23] MEDS: Gabapentin 600 MG Tablet PO ×4 (09:23→22:12)
[2022-09-23 09:26] VITALS: BP 125/89; PULSE 71; RESP 18; TEMP 36.7; O2SAT 99
[2022-09-23 18:03] VITALS: BP 118/82; PULSE 66; RESP 18; TEMP 36.8; O2SAT 99
[2022-09-23 22:00] VITALS: BP 133/90; PULSE 66; RESP 14; TEMP 37.1; O2SAT 99
[2022-09-24] MEDS: Phenobarbital 32.4 MG Tablet 64.8 MG PO ×6 (01:44→22:02)
[2022-09-24] MEDS: Buprenorphine HCl 2 MG TAB.SUBL SL ×3 (01:44→18:18)
[2022-09-24 02:00] VITALS: BP 102/70; PULSE 76; RESP 14; TEMP 36.4; O2SAT 95
[2022-09-24 03:11] VITALS: BP 135/77; PULSE 73; RESP 18; TEMP 36.6; O2SAT 98
[2022-09-24 06:00] VITALS: BP 115/85; PULSE 70; RESP 14; TEMP 36.5; O2SAT 99
[2022-09-24] MEDS: Pantoprazole Sodium 20 MG Tablet PO (08:55)
[2022-09-24] MEDS: Folic Acid 1 MG Tablet PO (08:55)
[2022-09-24] MEDS: Thiamine Hydrochloride 100 MG Tablet PO (08:55)
[2022-09-24 09:15] VITALS: BP 123/90; PULSE 76; RESP 20; TEMP 36.8; O2SAT 97
[2022-09-24] MEDS: Gabapentin 600 MG Tablet PO ×4 (09:37→22:02)
[2022-09-24] MEDS: cloNIDine HCl 0.1 MG Tablet PO ×2 (09:38→22:02)
[2022-09-24] MEDS: amLODIPine 10 MG Tablet PO (09:39)
--- NOTE | 2022-09-24 13:19 | PCM.PN.HOSP ---
Reason for Visit Reason for Visit: Diagnoses Alcohol use, unspecified with withdrawal, unspecified (09/22/22) Opioid use, unspecified with withdrawal (09/22/22) Subjective Subjective feels better. no new issues. Objective Data Objective Data Vital Signs: Vital Signs Temp Pulse Resp BP Pulse Ox O2 Del Method 36.8 C 76 20 H 123/90 H 97 Room Air 09/24/22 09:15 09/24/22 09:15 09/24/22 09:15 09/24/22 09:15 09/24/22 09:15 09/24/22 09:15 Oxygen Delivery Method Room Air Weight: 83.915 kg Body Mass Index (BMI) 25.7 Intake & Output: Intake and Output for Last 24 Hours 09/22/22 09/23/22 09/24/22 23:59 23:59 23:59 Intake Total 900 / 900 500 / 500 Balance 900 / 900 500 / 500 Lab / Micro Data Result Diagrams: 09/22/22 13:00 09/22/22 13:00 Physical Exam Const alert and no apparent distress HEENT head/scalp atraumatic and moist oral mucous membranes Assessment & Plan Assessment/Plan (1) Opiate withdrawal: PLAN: buprenorphine taper (2) Alcohol withdrawal: PLAN: phenobarbital taper thiamine and folate PLAN: Plan addiction med to assist. Pt encouraged to follow up with program to maintain sobriety. Charges/Coding Visit Charges Inpatient E&M: 78289 Subs Hosp L1
--- NOTE | 2022-09-24 14:13 | ADDICTION ---
This leader writer met with PT to conduct ASAM, MSE, AUDIT, DUDIT assessments and to plan for d/c. PT A+Ox4 and participated actively. All assessments completed and d/c plan is placed in PT's chart. PT agreed to residential treatment and has been approved for [facility] in [place]. [facility] will provide transportation tomorrow at 11am. Pt has been in detox 9x in 1.5 years. Pt must complete this residential program in order to be eligible for detox in the future.
[2022-09-24 14:25] VITALS: BP 120/85; PULSE 78; RESP 18; TEMP 36.6; O2SAT 98
--- NOTE | 2022-09-24 14:53 | DCINST_ITS ---
Discharge Instructions Diet Discharge Diet: No restrictions Dressing / Incision Call your doctor if your incision/area has: Continuous Slow Oozing Follow Up Care Test Results: Test results from this visit will be discussed in further detail at your follow- up appointment, if applicable. Discharge Plan Admission Admit Date/Time: 09/22/22 14:11 Primary Reason for Your Visit: opiate and alcohol withdrawal. Attending Provider: Dillan Catherine Primary Care Provider: Khushboo Hernandez Consulting Providers: Tru Mckinley Discharge Orders/Prescriptions Prescriptions: Continued testosterone enanthate 200 MG/ML oil 225 mg IM QWEEK gabapentin 600 MG tablet 600 mg PO 4X/DAY omeprazole 20 mg Capsule,Delayed Release(Dr/Ec) 20 mg PO DAILY Qty: 30 0RF clonidine HCl 0.1 mg tablet 0.1 mg PO BID Qty: 30 0RF amlodipine 5 mg tablet 10 mg PO DAILY Qty: 0 0RF Referrals / Follow Up: Khushboo Hernandez [Other] Khushboo Hernandez [Other] Disposition Disposition (needs filled in before D/C Order can be placed): Home, Self Care
[2022-09-24 21:55] VITALS: BP 138/91; PULSE 72; RESP 16; TEMP 36.7; O2SAT 100
[2022-09-24] MEDS: traZODone 100 MG Tablet PO (22:02)
[2022-09-25] MEDS: Phenobarbital 32.4 MG Tablet 64.8 MG PO ×2 (01:21→06:14)
[2022-09-25 06:08] VITALS: BP 118/78; PULSE 74; RESP 16; TEMP 36.8; O2SAT 99
[2022-09-25] MEDS: hydrOXYzine PAM 25 MG Capsule 50 MG PO (06:13)
[2022-09-25] MEDS: Buprenorphine HCl 2 MG TAB.SUBL SL (06:13)
[2022-09-25] MEDS: Nystatin Powder 15gm Bottle 1 APPLIC TOPICAL (06:47)
[2022-09-25 08:00] VITALS: BP 116/72; PULSE 65; RESP 18; TEMP 36.5; O2SAT 97
[2022-09-25] MEDS: Pantoprazole Sodium 20 MG Tablet PO (08:04)
[2022-09-25] MEDS: Folic Acid 1 MG Tablet PO (08:04)
[2022-09-25] MEDS: amLODIPine 10 MG Tablet PO (08:04)
[2022-09-25] MEDS: cloNIDine HCl 0.1 MG Tablet PO (08:04)
[2022-09-25] MEDS: Thiamine Hydrochloride 100 MG Tablet PO (08:04)
--- NOTE | 2022-09-25 08:57 | DS.PCM_ITS ---
Providers Date of Admission: 09/22/22 Primary Care Physician: Khushboo Hernandez Reason For Visit: ETOH Diagnosis Discharge Diagnosis (1) Opiate withdrawal: Status: Acute Code(s): F11.93 - Opioid use, unspecified with withdrawal Plan: buprenorphine taper completed (2) Alcohol withdrawal: Status: Acute Code(s): F10.939 - Alcohol use, unspecified with withdrawal, unspecified Plan: phenobarbital taper completed thiamine and folate Plan Pt to go to [facility]. Pt encouraged to follow up with programs after he has completed his residential program. Medications at Discharge Home Medications testosterone enanthate 200 mg/mL intramuscular oil 225 mg IM QWEEK low testosterone 06/18/20 gabapentin 600 mg tablet 600 mg PO 4X/DAY neuropathy 07/25/20 omeprazole 20 mg capsule,delayed release 20 mg PO DAILY GERD #30 caps 08/18/21 amlodipine 5 mg tablet 10 mg PO DAILY Check with primary doctor #0 tabs 09/14/21 clonidine HCl 0.1 mg tablet 0.1 mg PO BID anxiety #30 tabs 09/14/21 Weight / BMI Weight Weight: 83.915 kg Body Mass Index (BMI) 25.7 ABG / Lab / Microbiology Data Result Diagrams: 09/22/22 13:00 09/22/22 13:00 D/C Instructions Discharge Diet: No restrictions Call your doctor if your incision/area has: Continuous Slow Oozing Meaningful Use Info Meaningful Use Diagnoses (Choose all that apply): None applicable Discharge Plan Admission Admit Date/Time: 09/22/22 14:11 Primary Reason for Your Visit: opiate and alcohol withdrawal. Attending Provider: Dillan Catherine Primary Care Provider: Khushboo Hernandez Consulting Providers: Tru Mckinley Discharge Orders/Prescriptions Prescriptions: Continued testosterone enanthate 200 MG/ML oil 225 mg IM QWEEK gabapentin 600 MG tablet 600 mg PO 4X/DAY omeprazole 20 mg Capsule,Delayed Release(Dr/Ec) 20 mg PO DAILY Qty: 30 0RF clonidine HCl 0.1 mg tablet 0.1 mg PO BID Qty: 30 0RF amlodipine 5 mg tablet 10 mg PO DAILY Qty: 0 0RF Referrals / Follow Up: Khushboo Hernandez [Other] Khushboo Hernandez [Other] Disposition Disposition (needs filled in before D/C Order can be placed): Home, Self Care Charges/Coding Visit Charges Inpatient E&M: 24222 Disch Hosp
[2022-09-25] MEDS: Gabapentin 600 MG Tablet PO (09:34)
--- NOTE | 2022-09-25 09:46 | PHA.DC.MR ---
Pharmacy Service has performed discharge medication reconciliation for this patient. The patient's discharge medication list was reviewed for discrepancies and discrepancies were resolved. Home Medications testosterone enanthate 200 mg/mL intramuscular oil 225 mg IM QWEEK low testosterone 06/18/20 gabapentin 600 mg tablet 600 mg PO 4X/DAY neuropathy 07/25/20 omeprazole 20 mg capsule,delayed release 20 mg PO DAILY GERD #30 caps 08/18/21 amlodipine 5 mg tablet 10 mg PO DAILY Check with primary doctor #0 tabs 09/14/21 clonidine HCl 0.1 mg tablet 0.1 mg PO BID anxiety #30 tabs 09/14/21
== END 2022-09-25 12:48 | disposition home or self-care (01) | DRG 773 ==
LOC: ED 13:59 → MS3 15:49
PROVIDERS: Admitting Provider Family Medicine; Emergency Provider Emergency Medicine
DX: F11.23 Opioid dependence with withdrawal (principal); F10.239 Alcohol dependence with withdrawal, unspecified; I10 Essential (primary) hypertension; F17.210 Nicotine dependence, cigarettes, uncomplicated; Y90.2 Blood alcohol level of 40-59 mg/100 ml; Z79.899 Other long term (current) drug therapy; K21.9 Gastro-esophageal reflux disease without esophagitis; F41.9 Anxiety disorder, unspecified; F32.A Depression, unspecified
CPT/HCPCS: 80053; 80307; 82077; 83690; 85025; 96372; 97802; 99221; 99284; A4216; G0378